=== PATIENT | male | born 1950 | race Caucasian/White ===

== ENCOUNTER 2022-04-04 15:35 | Inpatient (IN) | payer MEDICARE ==
[2022-04-05 03:52] LABS: Basophils # (Auto) 0.1 K/mm3 (0.0-0.1); Basophils % (Auto) 0.6 % (0.0-1.8); Eosinophils # (Auto) 0.3 K/mm3 (0.0-0.4); Eosinophils % (Auto) 3.1 % (0.0-4.3); Hematocrit 38.9 % (35.5-45.6); Hemoglobin 13.9 gm/dl (11.8-15.2); Lymphocytes # (Auto) 1.7 K/mm3 (1.2-5.4); Lymphocytes % (Auto) 20.2 % (13.4-35.0); Mean Corpuscular HGB Conc 36 % (32-34); Mean Corpuscular Volume 97 fl (84-94); Monocytes # (Auto) 1.1 K/mm3 (0.0-0.8); Monocytes % (Auto) 12.9 % (0.0-7.3); Platelet Count 267 K/mm3 (140-440); Red Blood Count 4.02 M/mm3 (3.65-5.03); Red Cell Distribution Width 13.1 % (13.2-15.2)
[2022-04-05 04:13] LABS: Albumin 3.9 g/dL (3.9-5); Calcium 9.8 mg/dL (8.4-10.2); Chol/HDL Ratio 2.51 %
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
[2022-04-05] MEDS ORDERED: FAMCICLOVIR 250 MG PO SCH (08:30)
[2022-04-05] MEDS ORDERED: OLMESARTAN MEDOXOMIL 20 MG PO SCH (10:00)
[2022-04-05] MEDS ORDERED: NON-FORMULARY EACH (Aspirin [Vazalore] 81 MG Capsule) PO SCH (10:00)
[2022-04-05] MEDS: CLOPIDOGREL 75 MG TAB PO SCH (10:27)
[2022-04-05] MEDS: LEVOTHYROXINE 50 MCG TAB PO SCH (10:27)
[2022-04-05] MEDS: LOSARTAN 50 MG TAB PO SCH (10:28)
[2022-04-05] MEDS: risperiDONE 0.25 MG TAB PO SCH ×2 (10:35→21:20)
[2022-04-05] MEDS: ASPIRIN EC 81 MG TAB PO SCH (10:35)
[2022-04-05] MEDS: IBUPROFEN 200 MG TAB PO SCH (21:20)
[2022-04-05] MEDS ORDERED: IBUPROFEN 200 MG PO SCH (22:00)
[2022-04-06] MEDS: LEVOTHYROXINE 50 MCG TAB PO SCH (06:06)
[2022-04-06] MEDS: ASPIRIN EC 81 MG TAB PO SCH ×2 (09:23→09:29)
[2022-04-06] MEDS: risperiDONE 0.25 MG TAB PO SCH ×2 (09:24→21:31)
[2022-04-06] MEDS: CLOPIDOGREL 75 MG TAB PO SCH (09:24)
[2022-04-06] MEDS: LOSARTAN 50 MG TAB PO SCH (09:24)
[2022-04-06] MEDS: DIVALPROEX DR 125 MG TAB PO SCH ×2 (14:15→21:31)
[2022-04-06] MEDS: IBUPROFEN 200 MG TAB PO SCH (21:31)
[2022-04-07] MEDS: LEVOTHYROXINE 50 MCG TAB PO SCH (06:12)
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
[2022-04-07] MEDS: CLOPIDOGREL 75 MG TAB PO SCH (09:18)
[2022-04-07] MEDS: LOSARTAN 50 MG TAB PO SCH (09:18)
[2022-04-07] MEDS: DIVALPROEX DR 125 MG TAB PO SCH ×2 (09:25→21:08)
[2022-04-07] MEDS: ASPIRIN EC 81 MG TAB PO SCH (09:27)
[2022-04-07] MEDS ORDERED: risperiDONE 1 MG TAB PO SCH (10:00)
[2022-04-07] MEDS: risperiDONE 0.25 MG TAB PO SCH ×2 (10:00→21:03)
--- NOTE | 2022-04-07 17:08 | Consultation ---
History of Present Illness - Reason for Consult Consult date: 04/07/22 Medical management Medications and Allergies Allergies Allergy/AdvReac Type Severity Reaction Status Date / Time Sulfa (Sulfonamide Allergy Vomiting Verified 04/05/22 01:32 Antibiotics) Home Medications Medication Instructions Recorded Confirmed Last Taken Type Aspirin [Vazalore] 81 mg PO DAILY 04/05/22 04/05/22 Unknown History AtorvaSTATin [Lipitor] 10 mg PO QHS 04/05/22 04/05/22 Unknown History Clopidogrel [Plavix] 75 mg PO QDAY 04/05/22 04/05/22 Unknown History Famciclovir [Famvir Tab] 500 mg PO Q12H 04/05/22 04/05/22 Unknown History Ibuprofen [Advil Migraine] 200 mg PO HS 04/05/22 04/05/22 Unknown History Levothyroxine [Synthroid] 50 mcg PO QAM 04/05/22 04/05/22 Unknown History Olmesartan Medoxomil [Benicar] 20 mg PO DAILY 04/05/22 04/05/22 Unknown History Active Meds: Active Medications Aspirin (Aspirin Ec 81 Mg Tab) 81 mg PO QDAY [facility] Last Admin: 04/07/22 09:27 Dose: Not Given Atorvastatin Calcium (Atorvastatin 10 Mg Tab) 10 mg PO QHS [facility] Last Admin: 04/06/22 21:31 Dose: 10 mg Clopidogrel Bisulfate (Clopidogrel 75 Mg Tab) 75 mg PO QDAY [facility] Last Admin: 04/07/22 09:18 Dose: 37.5 mg Divalproex Sodium (Divalproex Dr 125 Mg Tab) 125 mg PO BID [facility] Last Admin: 04/07/22 09:25 Dose: 125 mg Ibuprofen (Ibuprofen 200 Mg Tab) 200 mg PO QHS [facility] Last Admin: 04/06/22 21:31 Dose: 200 mg Levothyroxine Sodium (Levothyroxine 50 Mcg Tab) 50 mcg PO DAILY@0600 [facility] Last Admin: 04/07/22 06:12 Dose: 50 mcg Losartan Potassium (Losartan 50 Mg Tab) 50 mg PO QDAY [facility] Last Admin: 04/07/22 09:18 Dose: Not Given Miscellaneous Medication (Famciclovir) 500 mg PO Q12H [facility] Risperidone (Risperidone 0.25 Mg Tab) 0.5 mg PO TID [facility] Last Admin: 04/07/22 10:00 Dose: Not Given Exam - Constitutional Vitals: Temp Pulse Resp BP Pulse Ox 97.1 F L 51 L 16 121/56 100 04/07/22 07:30 04/07/22 09:18 04/07/22 07:30 04/07/22 09:18 04/07/22 07:30 Results - Labs CBC & Chem 7: 04/05/22 03:25 04/05/22 03:25 Assessment and Plan #Delusional disorder #Auditory hallucination Management per primary #Coronary artery disease Continue home aspirin 81 mg daily, atorvastatin 40 mg nightly, Plavix 75 mg daily #Hypertension - home medications: Olmesartan 20 mg daily - current medications: Losartan 50 mg daily - SBP goal <160 and DBP goal <90 while inpatient - continue to monitor #Hypothyroidism Continue home levothyroxine 50 mcg daily #Advanced care planning -Disease education conducted, care plan discussed, diagnoses discussed, prognosis discussed, and patient acknowledges understanding with care plan -Time: +30 min Thank you for this interesting consult. We will continue to monitor.
[2022-04-07] MEDS: IBUPROFEN 200 MG TAB PO SCH (21:05)
[2022-04-08] MEDS: LEVOTHYROXINE 50 MCG TAB PO SCH (05:58)
[2022-04-08] MEDS: risperiDONE 0.25 MG TAB PO SCH ×3 (08:00→21:38)
--- NOTE | 2022-04-08 09:03 | Progress Note ---
Subjective Date of service: 04/08/22 Principal diagnosis: Delusional Disorder Subjective Comment: The patient was seen today. He is sitting in the dayroom. He is delusional. He is calm and cooperative. He introduces himself as "Dr. Vásquez." He denies SI/HI or hallucinations. REVIEW OF SYSTEMS Constitutional: Negative for weight loss ENT: Negative for stridor Respiratory: Negative for cough or hemoptysis All other systems reviewed and are negative MENTAL STATUS EXAMINATION General Appearance and Behavior: Age appropriate, wearing appropriate clothes, cooperative, polite with questioning, good eye contact Cooperation: cooperative Psychomotor Behavior: Psychomotor normal Mood: frustrated Affect and affective range: congruent with stated affect Thought Process: Circumstantial Thought Content: Paranoid/delusions Speech: Normal volume, Regular rate and rhythm Suicidal Ideation: Denies Homicidal Ideation: Denies Hallucination: Denies Delusions: Yes Impulse Control: Limited Insight and Judgment: Limited Memory: Intact Attention:attentive Orientation: Alert and oriented Diagnoses: Delusional Disorder Treatment Plan Patient admitted for inpatient psychiatric evaluation, medication adjustment and close monitoring The patient's behavior, mood, sleep and appetite will be closely monitored. Patient enrolled in individual and group therapeutic sessions and encouraged to attend. Patient provided with a safe and structured environment. Patient's physical health needs will be addressed by the Hospitalist. Hospitalist Consulted Labs including CBC, CMP, Lipid profile and Hemoglobin A1C levels ordered for baseline reference Social Assessment will be completed and the Customer Retention Representative will work with patient and family to ensure a suitable and safe disposition Medication adjustment will be made as clinically indicated Increase Risperidone 0.5mg po TID yesterday No changes made today Usual Wellness Sabianist/Preservation: - Start Trazodone 50 mg po QHS & 50 mg po QHS PRN between 10 PM & 2 AM for insomnia - Start Melatonin 5 mg po QHS to promote circadian rhythm The patient agreed on the treatment plan, understood the risk, benefit, alternative treatment, potential consequence of no treatment, and gave informed consent. Estimated days: 7 Post hospital care: primary care provider, psychiatric provider Case staffed with Dr. Torres Medications and Allergies Allergies Allergy/AdvReac Type Severity Reaction Status Date / Time Sulfa (Sulfonamide Allergy Vomiting Verified 04/05/22 01:32 Antibiotics) Home Medications Medication Instructions Recorded Confirmed Last Taken Type Aspirin [Vazalore] 81 mg PO DAILY 04/05/22 04/05/22 Unknown History AtorvaSTATin [Lipitor] 10 mg PO QHS 04/05/22 04/05/22 Unknown History Clopidogrel [Plavix] 75 mg PO QDAY 04/05/22 04/05/22 Unknown History Famciclovir [Famvir Tab] 500 mg PO Q12H 04/05/22 04/05/22 Unknown History Ibuprofen [Advil Migraine] 200 mg PO HS 04/05/22 04/05/22 Unknown History Levothyroxine [Synthroid] 50 mcg PO QAM 04/05/22 04/05/22 Unknown History Olmesartan Medoxomil [Benicar] 20 mg PO DAILY 04/05/22 04/05/22 Unknown History Active Meds: Active Medications Aspirin (Aspirin Ec 81 Mg Tab) 81 mg PO QDAY [facility] Last Admin: 04/07/22 09:27 Dose: Not Given Atorvastatin Calcium (Atorvastatin 10 Mg Tab) 10 mg PO QHS [facility] Last Admin: 04/07/22 21:07 Dose: Not Given Clopidogrel Bisulfate (Clopidogrel 75 Mg Tab) 75 mg PO QDAY [facility] Last Admin: 04/07/22 09:18 Dose: 37.5 mg Divalproex Sodium (Divalproex Dr 125 Mg Tab) 125 mg PO BID [facility] Last Admin: 04/07/22 21:08 Dose: Not Given Ibuprofen (Ibuprofen 200 Mg Tab) 200 mg PO QHS [facility] Last Admin: 04/07/22 21:05 Dose: 200 mg Levothyroxine Sodium (Levothyroxine 50 Mcg Tab) 50 mcg PO DAILY@0600 [facility] Last Admin: 04/08/22 05:58 Dose: 50 mcg Losartan Potassium (Losartan 50 Mg Tab) 50 mg PO QDAY [facility] Last Admin: 04/07/22 09:18 Dose: Not Given Risperidone (Risperidone 0.25 Mg Tab) 0.5 mg PO TID [facility] Last Admin: 04/07/22 21:03 Dose: 0.5 mg Valacyclovir HCl (Valacyclovir 500 Mg Tab) 500 mg PO BID [facility] Results - Results Labs/Vitals: Laboratory Last Values WBC 8.5 K/mm3 (4.5-11.0) 04/05/22 03:25 RBC 4.02 M/mm3 (3.65-5.03) 04/05/22 03:25 Hgb 13.9 gm/dl (11.8-15.2) 04/05/22 03:25 Hct 38.9 % (35.5-45.6) 04/05/22 03:25 MCV 97 fl (84-94) H 04/05/22 03:25 MCH 35 pg (28-32) H 04/05/22 03:25 MCHC 36 % (32-34) H 04/05/22 03:25 RDW 13.1 % (13.2-15.2) L 04/05/22 03:25 Plt Count 267 K/mm3 (140-440) 04/05/22 03:25 Lymph % (Auto) 20.2 % (13.4-35.0) 04/05/22 03:25 [place] % (Auto) 12.9 % (0.0-7.3) H 04/05/22 03:25 Eos % (Auto) 3.1 % (0.0-4.3) 04/05/22 03:25 Baso % (Auto) 0.6 % (0.0-1.8) 04/05/22 03:25 Lymph # (Auto) 1.7 K/mm3 (1.2-5.4) 04/05/22 03:25 [place] # (Auto) 1.1 K/mm3 (0.0-0.8) H 04/05/22 03:25 Eos # (Auto) 0.3 K/mm3 (0.0-0.4) 04/05/22 03:25 Baso # (Auto) 0.1 K/mm3 (0.0-0.1) 04/05/22 03:25 Seg Neutrophils % 63.2 % (40.0-70.0) 04/05/22 03:25 Seg Neutrophils # 5.4 K/mm3 (1.8-7.7) 04/05/22 03:25 Sodium 136 mmol/L (137-145) L 04/05/22 03:25 Potassium 4.3 mmol/L (3.6-5.0) 04/05/22 03:25 Chloride 96.9 mmol/L (98-107) L 04/05/22 03:25 Carbon Dioxide 28 mmol/L (22-30) 04/05/22 03:25 Anion Gap 15 mmol/L 04/05/22 03:25 BUN 26 mg/dL (9-20) H 04/05/22 03:25 Creatinine 1.4 mg/dL (0.8-1.3) H 04/05/22 03:25 Estimated GFR 50 ml/min 04/05/22 03:25 BUN/Creatinine Ratio 19 % 04/05/22 03:25 Glucose 99 mg/dL (75-100) 04/05/22 03:25 POC Glucose 98 mg/dL (70-105) 04/05/22 03:54 Hemoglobin A1c 5.2 % (4-6) 04/05/22 03:25 Calcium 9.8 mg/dL (8.4-10.2) 04/05/22 03:25 Total Bilirubin 0.30 mg/dL (0.1-1.2) 04/05/22 03:25 AST 28 units/L (5-40) 04/05/22 03:25 ALT 25 units/L (7-56) 04/05/22 03:25 Alkaline Phosphatase 52 units/L (35-129) 04/05/22 03:25 Total Protein 6.7 g/dL (6.3-8.2) 04/05/22 03:25 Albumin 3.9 g/dL (3.9-5) 04/05/22 03:25 Albumin/Globulin Ratio 1.4 % 04/05/22 03:25 Triglycerides 62 mg/dL (2-149) 04/05/22 03:25 Cholesterol 98 mg/dL (50-199) 04/05/22 03:25 LDL Cholesterol Direct 49 mg/dL (50-130) L 04/05/22 03:25 HDL Cholesterol 39 mg/dL (40-59) L 04/05/22 03:25 Cholesterol/HDL Ratio 2.51 % 04/05/22 03:25 TSH 2.600 mlU/mL (0.270-4.200) 04/05/22 03:25 Last Vital Signs Temp 97.7 F 04/07/22 19:04 Pulse 58 L 04/07/22 21:54 Resp 16 04/07/22 19:04 BP 101/47 04/07/22 19:04 Pulse Ox 98 04/07/22 21:54
[2022-04-08] MEDS: valACYclovir 500 MG TAB PO SCH ×2 (10:00→21:37)
[2022-04-08] MEDS: LOSARTAN 50 MG TAB PO SCH (10:00)
[2022-04-08] MEDS: CLOPIDOGREL 75 MG TAB PO SCH (10:00)
[2022-04-08] MEDS: ASPIRIN EC 81 MG TAB PO SCH (10:00)
[2022-04-08] MEDS: DIVALPROEX DR 125 MG TAB PO SCH ×2 (10:00→21:39)
[2022-04-08] MEDS ORDERED: ACETAMINOPHEN 325 MG TAB PO PRN (21:13)
[2022-04-08] MEDS: IBUPROFEN 200 MG TAB PO SCH (21:38)
[2022-04-09] MEDS: LEVOTHYROXINE 50 MCG TAB PO SCH (06:07)
--- NOTE | 2022-04-09 09:34 | Progress Note ---
Subjective Date of service: 04/09/22 Principal diagnosis: Delusional Disorder Subjective Comment: The patient was seen today. He says he is feeling fine. He refers to himself as "Dr. Vásquez." The patient denies SI/HI or hallucinations. He says he has not had a bowel movement in 4 days. 04/08 The patient was seen today. He is sitting in the dayroom. He is delusional. He is calm and cooperative. He introduces himself as "Dr. Vásquez." He denies SI/HI or hallucinations. REVIEW OF SYSTEMS Constitutional: Negative for weight loss ENT: Negative for stridor Respiratory: Negative for cough or hemoptysis All other systems reviewed and are negative MENTAL STATUS EXAMINATION General Appearance and Behavior: Age appropriate, wearing appropriate clothes, cooperative, polite with questioning, good eye contact Cooperation: cooperative Psychomotor Behavior: Psychomotor normal Mood: frustrated Affect and affective range: congruent with stated affect Thought Process: Circumstantial Thought Content: Paranoid/delusions Speech: Normal volume, Regular rate and rhythm Suicidal Ideation: Denies Homicidal Ideation: Denies Hallucination: Denies Delusions: Yes Impulse Control: Limited Insight and Judgment: Limited Memory: Intact Attention:attentive Orientation: Alert and oriented Diagnoses: Delusional Disorder Treatment Plan Patient admitted for inpatient psychiatric evaluation, medication adjustment and close monitoring The patient's behavior, mood, sleep and appetite will be closely monitored. Patient enrolled in individual and group therapeutic sessions and encouraged to attend. Patient provided with a safe and structured environment. Patient's physical health needs will be addressed by the Hospitalist. Hospitalist Consulted Labs including CBC, CMP, Lipid profile and Hemoglobin A1C levels ordered for baseline reference Social Assessment will be completed and the Drywall Sander will work with patient and family to ensure a suitable and safe disposition Medication adjustment will be made as clinically indicated Docusate 100mg po BID prn constipation MOM 30ml q4h prn constipation Usual Wellness Baptism/Preservation: - Start Trazodone 50 mg po QHS & 50 mg po QHS PRN between 10 PM & 2 AM for insomnia - Start Melatonin 5 mg po QHS to promote circadian rhythm The patient agreed on the treatment plan, understood the risk, benefit, alternative treatment, potential consequence of no treatment, and gave informed consent. Estimated days: 7 Post hospital care: primary care provider, psychiatric provider Case staffed with Dr. Torres Medications and Allergies Allergies Allergy/AdvReac Type Severity Reaction Status Date / Time Sulfa (Sulfonamide Allergy Vomiting Verified 04/05/22 01:32 Antibiotics) Home Medications Medication Instructions Recorded Confirmed Last Taken Type Aspirin [Vazalore] 81 mg PO DAILY 04/05/22 04/05/22 Unknown History AtorvaSTATin [Lipitor] 10 mg PO QHS 04/05/22 04/05/22 Unknown History Clopidogrel [Plavix] 75 mg PO QDAY 04/05/22 04/05/22 Unknown History Famciclovir [Famvir Tab] 500 mg PO Q12H 04/05/22 04/05/22 Unknown History Ibuprofen [Advil Migraine] 200 mg PO HS 04/05/22 04/05/22 Unknown History Levothyroxine [Synthroid] 50 mcg PO QAM 04/05/22 04/05/22 Unknown History Olmesartan Medoxomil [Benicar] 20 mg PO DAILY 04/05/22 04/05/22 Unknown History Active Meds: Active Medications Acetaminophen (Acetaminophen 325 Mg Tab) 650 mg PO Q6H PRN PRN Reason: Pain, Mild (1-3) Aspirin (Aspirin Ec 81 Mg Tab) 81 mg PO QDAY [facility] Last Admin: 04/08/22 10:00 Dose: 81 mg Atorvastatin Calcium (Atorvastatin 10 Mg Tab) 10 mg PO QHS [facility] Last Admin: 04/08/22 21:38 Dose: 10 mg Clopidogrel Bisulfate (Clopidogrel 75 Mg Tab) 75 mg PO QDAY [facility] Last Admin: 04/08/22 10:00 Dose: 75 mg Divalproex Sodium (Divalproex Dr 125 Mg Tab) 125 mg PO BID [facility] Last Admin: 04/08/22 21:39 Dose: Not Given Ibuprofen (Ibuprofen 200 Mg Tab) 200 mg PO QHS [facility] Last Admin: 04/08/22 21:38 Dose: 200 mg Levothyroxine Sodium (Levothyroxine 50 Mcg Tab) 50 mcg PO DAILY@0600 [facility] Last Admin: 04/09/22 06:07 Dose: 50 mcg Losartan Potassium (Losartan 50 Mg Tab) 50 mg PO QDAY [facility] Last Admin: 04/08/22 10:00 Dose: Not Given Risperidone (Risperidone 0.25 Mg Tab) 0.5 mg PO TID [facility] Last Admin: 04/08/22 21:38 Dose: Not Given Valacyclovir HCl (Valacyclovir 500 Mg Tab) 500 mg PO BID [facility] Last Admin: 04/08/22 21:37 Dose: 500 mg Results - Results Labs/Vitals: Laboratory Last Values WBC 8.5 K/mm3 (4.5-11.0) 04/05/22 03:25 RBC 4.02 M/mm3 (3.65-5.03) 04/05/22 03:25 Hgb 13.9 gm/dl (11.8-15.2) 04/05/22 03:25 Hct 38.9 % (35.5-45.6) 04/05/22 03:25 MCV 97 fl (84-94) H 04/05/22 03:25 MCH 35 pg (28-32) H 04/05/22 03:25 MCHC 36 % (32-34) H 04/05/22 03:25 RDW 13.1 % (13.2-15.2) L 04/05/22 03:25 Plt Count 267 K/mm3 (140-440) 04/05/22 03:25 Lymph % (Auto) 20.2 % (13.4-35.0) 04/05/22 03:25 [place] % (Auto) 12.9 % (0.0-7.3) H 04/05/22 03:25 Eos % (Auto) 3.1 % (0.0-4.3) 04/05/22 03:25 Baso % (Auto) 0.6 % (0.0-1.8) 04/05/22 03:25 Lymph # (Auto) 1.7 K/mm3 (1.2-5.4) 04/05/22 03:25 [place] # (Auto) 1.1 K/mm3 (0.0-0.8) H 04/05/22 03:25 Eos # (Auto) 0.3 K/mm3 (0.0-0.4) 04/05/22 03:25 Baso # (Auto) 0.1 K/mm3 (0.0-0.1) 04/05/22 03:25 Seg Neutrophils % 63.2 % (40.0-70.0) 04/05/22 03:25 Seg Neutrophils # 5.4 K/mm3 (1.8-7.7) 04/05/22 03:25 Sodium 136 mmol/L (137-145) L 04/05/22 03:25 Potassium 4.3 mmol/L (3.6-5.0) 04/05/22 03:25 Chloride 96.9 mmol/L (98-107) L 04/05/22 03:25 Carbon Dioxide 28 mmol/L (22-30) 04/05/22 03:25 Anion Gap 15 mmol/L 04/05/22 03:25 BUN 26 mg/dL (9-20) H 04/05/22 03:25 Creatinine 1.4 mg/dL (0.8-1.3) H 04/05/22 03:25 Estimated GFR 50 ml/min 04/05/22 03:25 BUN/Creatinine Ratio 19 % 04/05/22 03:25 Glucose 99 mg/dL (75-100) 04/05/22 03:25 POC Glucose 98 mg/dL (70-105) 04/05/22 03:54 Hemoglobin A1c 5.2 % (4-6) 04/05/22 03:25 Calcium 9.8 mg/dL (8.4-10.2) 04/05/22 03:25 Total Bilirubin 0.30 mg/dL (0.1-1.2) 04/05/22 03:25 AST 28 units/L (5-40) 04/05/22 03:25 ALT 25 units/L (7-56) 04/05/22 03:25 Alkaline Phosphatase 52 units/L (35-129) 04/05/22 03:25 Total Protein 6.7 g/dL (6.3-8.2) 04/05/22 03:25 Albumin 3.9 g/dL (3.9-5) 04/05/22 03:25 Albumin/Globulin Ratio 1.4 % 04/05/22 03:25 Triglycerides 62 mg/dL (2-149) 04/05/22 03:25 Cholesterol 98 mg/dL (50-199) 04/05/22 03:25 LDL Cholesterol Direct 49 mg/dL (50-130) L 04/05/22 03:25 HDL Cholesterol 39 mg/dL (40-59) L 04/05/22 03:25 Cholesterol/HDL Ratio 2.51 % 04/05/22 03:25 TSH 2.600 mlU/mL (0.270-4.200) 04/05/22 03:25 Last Vital Signs Temp 97.5 F L 04/08/22 22:00 Pulse 55 L 04/08/22 22:00 Resp 18 04/08/22 22:00 BP 123/58 04/08/22 22:00 Pulse Ox 100 04/08/22 19:56
[2022-04-09] MEDS ORDERED: MAGNESIUM HYDROXIDE (MOM) ORAL LIQD UDC PO PRN (09:35)
[2022-04-09] MEDS: DIVALPROEX DR 125 MG TAB PO SCH ×2 (15:49→22:31)
[2022-04-09] MEDS: risperiDONE 0.25 MG TAB PO SCH ×2 (15:49→22:31)
[2022-04-09] MEDS: DOCUSATE SODIUM 100 MG CAP PO SCH ×2 (15:49→21:29)
[2022-04-09] MEDS: LOSARTAN 50 MG TAB PO SCH (15:49)
[2022-04-09] MEDS: valACYclovir 500 MG TAB PO SCH ×2 (15:50→21:30)
[2022-04-09] MEDS: ASPIRIN EC 81 MG TAB PO SCH (15:50)
[2022-04-09] MEDS: CLOPIDOGREL 75 MG TAB PO SCH (15:50)
[2022-04-09] MEDS: IBUPROFEN 200 MG TAB PO SCH (21:29)
[2022-04-10] MEDS: LEVOTHYROXINE 50 MCG TAB PO SCH (05:23)
--- NOTE | 2022-04-10 09:18 | Progress Note ---
Subjective Date of service: 04/10/22 Principal diagnosis: Delusional Disorder Subjective Comment: The patient was seen today. He says he is doing fair. He refers to himself as Dr. Vásquez. He denies SI/HI or hallucinations of any kind. 04/09 The patient was seen today. He says he is feeling fine. He refers to himself as "Dr. Vásquez." The patient denies SI/HI or hallucinations. He says he has not had a bowel movement in 4 days. 04/08 The patient was seen today. He is sitting in the dayroom. He is delusional. He is calm and cooperative. He introduces himself as "Dr. Vásquez." He denies SI/HI or hallucinations. REVIEW OF SYSTEMS Constitutional: Negative for weight loss ENT: Negative for stridor Respiratory: Negative for cough or hemoptysis All other systems reviewed and are negative MENTAL STATUS EXAMINATION General Appearance and Behavior: Age appropriate, wearing appropriate clothes, cooperative, polite with questioning, good eye contact Cooperation: cooperative Psychomotor Behavior: Psychomotor normal Mood: fair Affect and affective range: congruent with stated affect Thought Process: Circumstantial Thought Content: Paranoid/delusions Speech: Normal volume, Regular rate and rhythm Suicidal Ideation: Denies Homicidal Ideation: Denies Hallucination: Denies Delusions: Yes Impulse Control: Limited Insight and Judgment: Limited Memory: Intact Attention:attentive Orientation: Alert and oriented Diagnoses: Delusional Disorder Treatment Plan Patient admitted for inpatient psychiatric evaluation, medication adjustment and close monitoring The patient's behavior, mood, sleep and appetite will be closely monitored. Patient enrolled in individual and group therapeutic sessions and encouraged to attend. Patient provided with a safe and structured environment. Patient's physical health needs will be addressed by the Hospitalist. Hospitalist Consulted Labs including CBC, CMP, Lipid profile and Hemoglobin A1C levels ordered for baseline reference Social Assessment will be completed and the Restaurant Crew Member will work with patient and family to ensure a suitable and safe disposition Medication adjustment will be made as clinically indicated No changes made today Usual Wellness Orthodox/Preservation: - Start Trazodone 50 mg po QHS & 50 mg po QHS PRN between 10 PM & 2 AM for insomnia - Start Melatonin 5 mg po QHS to promote circadian rhythm The patient agreed on the treatment plan, understood the risk, benefit, alternative treatment, potential consequence of no treatment, and gave informed consent. Estimated days: 7 Post hospital care: primary care provider, psychiatric provider Case staffed with Dr. Torres Medications and Allergies Allergies Allergy/AdvReac Type Severity Reaction Status Date / Time Sulfa (Sulfonamide Allergy Vomiting Verified 04/05/22 01:32 Antibiotics) Home Medications Medication Instructions Recorded Confirmed Last Taken Type Aspirin [Vazalore] 81 mg PO DAILY 04/05/22 04/05/22 Unknown History AtorvaSTATin [Lipitor] 10 mg PO QHS 04/05/22 04/05/22 Unknown History Clopidogrel [Plavix] 75 mg PO QDAY 04/05/22 04/05/22 Unknown History Famciclovir [Famvir Tab] 500 mg PO Q12H 04/05/22 04/05/22 Unknown History Ibuprofen [Advil Migraine] 200 mg PO HS 04/05/22 04/05/22 Unknown History Levothyroxine [Synthroid] 50 mcg PO QAM 04/05/22 04/05/22 Unknown History Olmesartan Medoxomil [Benicar] 20 mg PO DAILY 04/05/22 04/05/22 Unknown History Active Meds: Active Medications Acetaminophen (Acetaminophen 325 Mg Tab) 650 mg PO Q6H PRN PRN Reason: Pain, Mild (1-3) Aspirin (Aspirin Ec 81 Mg Tab) 81 mg PO QDAY [facility] Last Admin: 04/09/22 15:50 Dose: Not Given Atorvastatin Calcium (Atorvastatin 10 Mg Tab) 10 mg PO QHS [facility] Last Admin: 04/09/22 21:29 Dose: 10 mg Clopidogrel Bisulfate (Clopidogrel 75 Mg Tab) 75 mg PO QDAY [facility] Last Admin: 04/09/22 15:50 Dose: Not Given Divalproex Sodium (Divalproex Dr 125 Mg Tab) 125 mg PO BID [facility] Last Admin: 04/09/22 22:31 Dose: Not Given Docusate Sodium (Docusate Sodium 100 Mg Cap) 100 mg PO BID [facility] Last Admin: 04/09/22 21:29 Dose: 100 mg Ibuprofen (Ibuprofen 200 Mg Tab) 200 mg PO QHS [facility] Last Admin: 04/09/22 21:29 Dose: 200 mg Levothyroxine Sodium (Levothyroxine 50 Mcg Tab) 50 mcg PO DAILY@0600 [facility] Last Admin: 04/10/22 05:23 Dose: 50 mcg Losartan Potassium (Losartan 50 Mg Tab) 50 mg PO QDAY [facility] Last Admin: 04/09/22 15:49 Dose: Not Given Magnesium Hydroxide (Magnesium Hydroxide (Mom) Oral Liqd Udc) 30 ml PO Q4H PRN PRN Reason: Constipation Risperidone (Risperidone 0.25 Mg Tab) 0.5 mg PO TID [facility] Last Admin: 04/09/22 22:31 Dose: Not Given Valacyclovir HCl (Valacyclovir 500 Mg Tab) 500 mg PO BID [facility] Last Admin: 04/09/22 21:30 Dose: 500 mg Results - Results Labs/Vitals: Laboratory Last Values WBC 8.5 K/mm3 (4.5-11.0) 04/05/22 03:25 RBC 4.02 M/mm3 (3.65-5.03) 04/05/22 03:25 Hgb 13.9 gm/dl (11.8-15.2) 04/05/22 03:25 Hct 38.9 % (35.5-45.6) 04/05/22 03:25 MCV 97 fl (84-94) H 04/05/22 03:25 MCH 35 pg (28-32) H 04/05/22 03:25 MCHC 36 % (32-34) H 04/05/22 03:25 RDW 13.1 % (13.2-15.2) L 04/05/22 03:25 Plt Count 267 K/mm3 (140-440) 04/05/22 03:25 Lymph % (Auto) 20.2 % (13.4-35.0) 04/05/22 03:25 [place] % (Auto) 12.9 % (0.0-7.3) H 04/05/22 03:25 Eos % (Auto) 3.1 % (0.0-4.3) 04/05/22 03:25 Baso % (Auto) 0.6 % (0.0-1.8) 04/05/22 03:25 Lymph # (Auto) 1.7 K/mm3 (1.2-5.4) 04/05/22 03:25 [place] # (Auto) 1.1 K/mm3 (0.0-0.8) H 04/05/22 03:25 Eos # (Auto) 0.3 K/mm3 (0.0-0.4) 04/05/22 03:25 Baso # (Auto) 0.1 K/mm3 (0.0-0.1) 04/05/22 03:25 Seg Neutrophils % 63.2 % (40.0-70.0) 04/05/22 03:25 Seg Neutrophils # 5.4 K/mm3 (1.8-7.7) 04/05/22 03:25 Sodium 136 mmol/L (137-145) L 04/05/22 03:25 Potassium 4.3 mmol/L (3.6-5.0) 04/05/22 03:25 Chloride 96.9 mmol/L (98-107) L 04/05/22 03:25 Carbon Dioxide 28 mmol/L (22-30) 04/05/22 03:25 Anion Gap 15 mmol/L 04/05/22 03:25 BUN 26 mg/dL (9-20) H 04/05/22 03:25 Creatinine 1.4 mg/dL (0.8-1.3) H 04/05/22 03:25 Estimated GFR 50 ml/min 04/05/22 03:25 BUN/Creatinine Ratio 19 % 04/05/22 03:25 Glucose 99 mg/dL (75-100) 04/05/22 03:25 POC Glucose 98 mg/dL (70-105) 04/05/22 03:54 Hemoglobin A1c 5.2 % (4-6) 04/05/22 03:25 Calcium 9.8 mg/dL (8.4-10.2) 04/05/22 03:25 Total Bilirubin 0.30 mg/dL (0.1-1.2) 04/05/22 03:25 AST 28 units/L (5-40) 04/05/22 03:25 ALT 25 units/L (7-56) 04/05/22 03:25 Alkaline Phosphatase 52 units/L (35-129) 04/05/22 03:25 Total Protein 6.7 g/dL (6.3-8.2) 04/05/22 03:25 Albumin 3.9 g/dL (3.9-5) 04/05/22 03:25 Albumin/Globulin Ratio 1.4 % 04/05/22 03:25 Triglycerides 62 mg/dL (2-149) 04/05/22 03:25 Cholesterol 98 mg/dL (50-199) 04/05/22 03:25 LDL Cholesterol Direct 49 mg/dL (50-130) L 04/05/22 03:25 HDL Cholesterol 39 mg/dL (40-59) L 04/05/22 03:25 Cholesterol/HDL Ratio 2.51 % 04/05/22 03:25 TSH 2.600 mlU/mL (0.270-4.200) 04/05/22 03:25 Last Vital Signs Temp 98.2 F 04/09/22 22:00 Pulse 52 L 04/09/22 22:00 Resp 18 04/09/22 22:00 BP 130/47 04/09/22 22:00 Pulse Ox 100 04/09/22 22:00
[2022-04-10] MEDS: CLOPIDOGREL 75 MG TAB PO SCH (10:08)
[2022-04-10] MEDS: risperiDONE 0.25 MG TAB PO SCH ×3 (10:08→22:48)
[2022-04-10] MEDS: DOCUSATE SODIUM 100 MG CAP PO SCH ×2 (10:09→22:48)
[2022-04-10] MEDS: LOSARTAN 50 MG TAB PO SCH (10:10)
[2022-04-10] MEDS: valACYclovir 500 MG TAB PO SCH (10:11)
[2022-04-10] MEDS: ASPIRIN EC 81 MG TAB PO SCH (10:11)
[2022-04-10] MEDS: DIVALPROEX DR 125 MG TAB PO SCH ×2 (10:11→22:49)
--- NOTE | 2022-04-10 10:46 | Progress Note ---
Assessment and Plan - Patient Problems (1) Delusional disorder Current Visit: Yes Status: Acute Plan to address problem: Continue medical management, supportive care, behavior change counseling (2) Vascular dementia with behavioral disturbance Current Visit: Yes Status: Acute Plan to address problem: Verbal prompting, verbal redirection, benzodiazepine therapy as clinically indicated. (3) Cerebral atherosclerosis Current Visit: Yes Status: Acute Plan to address problem: Risk factor reduction, antiplatelet therapy as clinically indicated. (4) Hypothyroidism Current Visit: Yes Status: Acute Plan to address problem: Continue Synthroid therapy, supportive care. (5) Hypertension Current Visit: Yes Status: Acute Qualifiers: Hypertension type: primary hypertension Qualified Code(s): I10 - Essential (primary) hypertension Plan to address problem: Monitor blood pressure every shift, continue medical management. (6) Advance care planning Current Visit: Yes Status: Acute Plan to address problem: Disease education done, care plan discussed, diagnoses discussed, prognosis discussed, patient is full code. Patient acknowledges understanding and agreement with care plan, +30 minutes. (7) Preventative health care Current Visit: Yes Status: Acute Plan to address problem: Patient counseled regarding home safety, increase protein intake, outpatient follow-up with primary care physician for all age and risk factor appropriate screening tests. +30 minutes. History Interval history: 71 YO Male with Vascular Dementia with Behavioral Disturbance, Cerebral Atherosclerosis, HTN, CAD on DAPT, Hypothyroidism, Delusional Disorder admitted to [facility] psych unit for psychiatric stabilization. Consult placed by Dr. Jorge for medical management. Patient seen and evaluated in the recreation room. Patient resting calmly. Patient appears to be at baseline level of cognition and function. Hospitalist Physical - Constitutional Vitals: Temp Pulse Resp BP Pulse Ox 98.2 F 52 L 18 139/66 100 04/09/22 22:00 04/10/22 10:10 04/09/22 22:00 04/10/22 10:10 04/09/22 22:00 General appearance: Present: no acute distress - EENT Eyes: Present: PERRL ENT: hearing decreased - Neck Neck: Present: supple - Respiratory Respiratory effort: normal Respiratory: bilateral: diminished - Cardiovascular Rhythm: regular Heart Sounds: Present: S1 & S2 - Extremities Extremities: no ischemia Peripheral Pulses: within normal limits - Abdominal General gastrointestinal: soft, non-tender, non-distended - Integumentary Integumentary: Present: clear, dry - Psychiatric Psychiatric: cooperative - Neurologic Neurologic: CNII-XII intact Results - Labs CBC & Chem 7: 04/05/22 03:25 04/05/22 03:25 Labs: Laboratory Last Values WBC 8.5 K/mm3 (4.5-11.0) 04/05/22 03:25 RBC 4.02 M/mm3 (3.65-5.03) 04/05/22 03:25 Hgb 13.9 gm/dl (11.8-15.2) 04/05/22 03:25 Hct 38.9 % (35.5-45.6) 04/05/22 03:25 MCV 97 fl (84-94) H 04/05/22 03:25 MCH 35 pg (28-32) H 04/05/22 03:25 MCHC 36 % (32-34) H 04/05/22 03:25 RDW 13.1 % (13.2-15.2) L 04/05/22 03:25 Plt Count 267 K/mm3 (140-440) 04/05/22 03:25 Lymph % (Auto) 20.2 % (13.4-35.0) 04/05/22 03:25 [place] % (Auto) 12.9 % (0.0-7.3) H 04/05/22 03:25 Eos % (Auto) 3.1 % (0.0-4.3) 04/05/22 03:25 Baso % (Auto) 0.6 % (0.0-1.8) 04/05/22 03:25 Lymph # (Auto) 1.7 K/mm3 (1.2-5.4) 04/05/22 03:25 [place] # (Auto) 1.1 K/mm3 (0.0-0.8) H 04/05/22 03:25 Eos # (Auto) 0.3 K/mm3 (0.0-0.4) 04/05/22 03:25 Baso # (Auto) 0.1 K/mm3 (0.0-0.1) 04/05/22 03:25 Seg Neutrophils % 63.2 % (40.0-70.0) 04/05/22 03:25 Seg Neutrophils # 5.4 K/mm3 (1.8-7.7) 04/05/22 03:25 Sodium 136 mmol/L (137-145) L 04/05/22 03:25 Potassium 4.3 mmol/L (3.6-5.0) 04/05/22 03:25 Chloride 96.9 mmol/L (98-107) L 04/05/22 03:25 Carbon Dioxide 28 mmol/L (22-30) 04/05/22 03:25 Anion Gap 15 mmol/L 04/05/22 03:25 BUN 26 mg/dL (9-20) H 04/05/22 03:25 Creatinine 1.4 mg/dL (0.8-1.3) H 04/05/22 03:25 Estimated GFR 50 ml/min 04/05/22 03:25 BUN/Creatinine Ratio 19 % 04/05/22 03:25 Glucose 99 mg/dL (75-100) 04/05/22 03:25 POC Glucose 98 mg/dL (70-105) 04/05/22 03:54 Hemoglobin A1c 5.2 % (4-6) 04/05/22 03:25 Calcium 9.8 mg/dL (8.4-10.2) 04/05/22 03:25 Total Bilirubin 0.30 mg/dL (0.1-1.2) 04/05/22 03:25 AST 28 units/L (5-40) 04/05/22 03:25 ALT 25 units/L (7-56) 04/05/22 03:25 Alkaline Phosphatase 52 units/L (35-129) 04/05/22 03:25 Total Protein 6.7 g/dL (6.3-8.2) 04/05/22 03:25 Albumin 3.9 g/dL (3.9-5) 04/05/22 03:25 Albumin/Globulin Ratio 1.4 % 04/05/22 03:25 Triglycerides 62 mg/dL (2-149) 04/05/22 03:25 Cholesterol 98 mg/dL (50-199) 04/05/22 03:25 LDL Cholesterol Direct 49 mg/dL (50-130) L 04/05/22 03:25 HDL Cholesterol 39 mg/dL (40-59) L 04/05/22 03:25 Cholesterol/HDL Ratio 2.51 % 04/05/22 03:25 TSH 2.600 mlU/mL (0.270-4.200) 04/05/22 03:25 Ascencio/IV: Voiding Method Toilet Active Medications - Current Medications Current Medications: Generic Name Dose Route Start Last Admin Trade Name Freq PRN Reason Stop Dose Admin Acetaminophen 650 mg 04/08/22 21:13 Acetaminophen 325 Mg Tab PO Q6H PRN Pain, Mild (1-3) Aspirin 81 mg 04/05/22 10:00 04/10/22 10:11 Aspirin Ec 81 Mg Tab PO Not Given QDAY [facility] Atorvastatin Calcium 10 mg 04/05/22 22:00 04/09/22 21:29 Atorvastatin 10 Mg Tab PO 10 mg QHS [facility] Administration Clopidogrel Bisulfate 75 mg 04/05/22 10:00 04/10/22 10:08 Clopidogrel 75 Mg Tab PO 75 mg QDAY [facility] Administration Divalproex Sodium 125 mg 04/06/22 12:00 04/10/22 10:[address] 125 Mg Tab PO Not Given BID [facility] Docusate Sodium 100 mg 04/09/22 10:00 04/10/22 10:09 Docusate Sodium 100 Mg Cap PO 100 mg BID [facility] Administration Ibuprofen 200 mg 04/05/22 22:00 04/09/22 21:29 Ibuprofen 200 Mg Tab PO 200 mg QHS [facility] Administration Levothyroxine Sodium 50 mcg 04/05/22 10:00 04/10/22 05:23 Levothyroxine 50 Mcg Tab PO 50 mcg DAILY@0600 [facility] Administration Losartan Potassium 50 mg 04/05/22 10:00 04/10/22 10:10 Losartan 50 Mg Tab PO 50 mg QDAY [facility] Administration Magnesium Hydroxide 30 ml 04/09/22 09:35 Magnesium Hydroxide (Mom) Oral Liqd Udc PO Q4H PRN Constipation Risperidone 0.5 mg 04/07/22 10:00 04/10/22 10:08 Risperidone 0.25 Mg Tab PO Not Given TID [facility]IE Valacyclovir HCl 500 mg 04/08/22 10:00 04/10/22 10:11 Valacyclovir 500 Mg Tab PO Not Given BID [facility]
[2022-04-10] MEDS: IBUPROFEN 200 MG TAB PO SCH (22:49)
[2022-04-11] MEDS: valACYclovir 500 MG TAB PO SCH ×3 (06:22→21:11)
[2022-04-11] MEDS: LEVOTHYROXINE 50 MCG TAB PO SCH (06:24)
[2022-04-11] MEDS: CLOPIDOGREL 75 MG TAB PO SCH (09:52)
[2022-04-11] MEDS: DOCUSATE SODIUM 100 MG CAP PO SCH ×2 (09:52→21:09)
[2022-04-11] MEDS: risperiDONE 0.25 MG TAB PO SCH ×3 (09:54→21:14)
[2022-04-11] MEDS: LOSARTAN 50 MG TAB PO SCH (09:54)
[2022-04-11] MEDS: DIVALPROEX DR 125 MG TAB PO SCH ×2 (09:55→21:11)
[2022-04-11] MEDS: ASPIRIN EC 81 MG TAB PO SCH (09:55)
--- NOTE | 2022-04-11 10:13 | Progress Note ---
Subjective Date of service: 04/11/22 Principal diagnosis: Delusional Disorder Subjective Comment: The patient was seen today. He says he is doing fine. The patient asked to speak to the about an assisted living. I informed him that I would inform the SW of his request. The patient denies SI/HI or hallucinations. The patient will discharge once outpatient resources are in place to ensure continuity of his mental wellness. 04/10 The patient was seen today. He says he is doing fair. He refers to himself as Dr. Vásquez. He denies SI/HI or hallucinations of any kind. 04/09 The patient was seen today. He says he is feeling fine. He refers to himself as "Dr. Vásquez." The patient denies SI/HI or hallucinations. He says he has not had a bowel movement in 4 days. 04/08 The patient was seen today. He is sitting in the dayroom. He is delusional. He is calm and cooperative. He introduces himself as "Dr. Vásquez." He denies SI/HI or hallucinations. REVIEW OF SYSTEMS Constitutional: Negative for weight loss ENT: Negative for stridor Respiratory: Negative for cough or hemoptysis All other systems reviewed and are negative MENTAL STATUS EXAMINATION General Appearance and Behavior: Age appropriate, wearing appropriate clothes, cooperative, polite with questioning, good eye contact Cooperation: cooperative Psychomotor Behavior: Psychomotor normal Mood: fair Affect and affective range: congruent with stated affect Thought Process: Circumstantial Thought Content: Paranoid/delusions Speech: Normal volume, Regular rate and rhythm Suicidal Ideation: Denies Homicidal Ideation: Denies Hallucination: Denies Delusions: Yes Impulse Control: Limited Insight and Judgment: Limited Memory: Intact Attention:attentive Orientation: Alert and oriented Diagnoses: Delusional Disorder Treatment Plan Patient admitted for inpatient psychiatric evaluation, medication adjustment and close monitoring The patient's behavior, mood, sleep and appetite will be closely monitored. Patient enrolled in individual and group therapeutic sessions and encouraged to attend. Patient provided with a safe and structured environment. Patient's physical health needs will be addressed by the Hospitalist. Hospitalist Consulted Labs including CBC, CMP, Lipid profile and Hemoglobin A1C levels ordered for baseline reference Social Assessment will be completed and the Software Architect will work with patient and family to ensure a suitable and safe disposition Medication adjustment will be made as clinically indicated No changes made today Usual Wellness Buddhism/Preservation: - Start Trazodone 50 mg po QHS & 50 mg po QHS PRN between 10 PM & 2 AM for insomnia - Start Melatonin 5 mg po QHS to promote circadian rhythm The patient agreed on the treatment plan, understood the risk, benefit, alternative treatment, potential consequence of no treatment, and gave informed consent. Estimated days: 7 Post hospital care: primary care provider, psychiatric provider Case staffed with Dr. Torres Medications and Allergies Allergies Allergy/AdvReac Type Severity Reaction Status Date / Time Sulfa (Sulfonamide Allergy Vomiting Verified 04/05/22 01:32 Antibiotics) Home Medications Medication Instructions Recorded Confirmed Last Taken Type Aspirin [Vazalore] 81 mg PO DAILY 04/05/22 04/05/22 Unknown History AtorvaSTATin [Lipitor] 10 mg PO QHS 04/05/22 04/05/22 Unknown History Clopidogrel [Plavix] 75 mg PO QDAY 04/05/22 04/05/22 Unknown History Famciclovir [Famvir Tab] 500 mg PO Q12H 04/05/22 04/05/22 Unknown History Ibuprofen [Advil Migraine] 200 mg PO HS 04/05/22 04/05/22 Unknown History Levothyroxine [Synthroid] 50 mcg PO QAM 04/05/22 04/05/22 Unknown History Olmesartan Medoxomil [Benicar] 20 mg PO DAILY 04/05/22 04/05/22 Unknown History Active Meds: Active Medications Acetaminophen (Acetaminophen 325 Mg Tab) 650 mg PO Q6H PRN PRN Reason: Pain, Mild (1-3) Aspirin (Aspirin Ec 81 Mg Tab) 81 mg PO QDAY [facility] Last Admin: 04/11/22 09:55 Dose: Not Given Atorvastatin Calcium (Atorvastatin 10 Mg Tab) 10 mg PO QHS [facility] Last Admin: 04/10/22 22:48 Dose: 10 mg Clopidogrel Bisulfate (Clopidogrel 75 Mg Tab) 75 mg PO QDAY [facility] Last Admin: 04/11/22 09:52 Dose: 75 mg Divalproex Sodium (Divalproex Dr 125 Mg Tab) 125 mg PO BID [facility] Last Admin: 04/11/22 09:55 Dose: Not Given Docusate Sodium (Docusate Sodium 100 Mg Cap) 100 mg PO BID [facility] Last Admin: 04/11/22 09:52 Dose: 100 mg Ibuprofen (Ibuprofen 200 Mg Tab) 200 mg PO QHS [facility] Last Admin: 04/10/22 22:49 Dose: 200 mg Levothyroxine Sodium (Levothyroxine 50 Mcg Tab) 50 mcg PO DAILY@0600 [facility] Last Admin: 04/11/22 06:24 Dose: 50 mcg Losartan Potassium (Losartan 50 Mg Tab) 50 mg PO QDAY [facility] Last Admin: 04/11/22 09:54 Dose: Not Given Magnesium Hydroxide (Magnesium Hydroxide (Mom) Oral Liqd Udc) 30 ml PO Q4H PRN PRN Reason: Constipation Risperidone (Risperidone 0.25 Mg Tab) 0.5 mg PO TID [facility] Last Admin: 04/11/22 09:54 Dose: Not Given Valacyclovir HCl (Valacyclovir 500 Mg Tab) 500 mg PO BID [facility] Last Admin: 04/11/22 09:55 Dose: Not Given Results - Results Labs/Vitals: Laboratory Last Values WBC 8.5 K/mm3 (4.5-11.0) 04/05/22 03:25 RBC 4.02 M/mm3 (3.65-5.03) 04/05/22 03:25 Hgb 13.9 gm/dl (11.8-15.2) 04/05/22 03:25 Hct 38.9 % (35.5-45.6) 04/05/22 03:25 MCV 97 fl (84-94) H 04/05/22 03:25 MCH 35 pg (28-32) H 04/05/22 03:25 MCHC 36 % (32-34) H 04/05/22 03:25 RDW 13.1 % (13.2-15.2) L 04/05/22 03:25 Plt Count 267 K/mm3 (140-440) 04/05/22 03:25 Lymph % (Auto) 20.2 % (13.4-35.0) 04/05/22 03:25 [place] % (Auto) 12.9 % (0.0-7.3) H 04/05/22 03:25 Eos % (Auto) 3.1 % (0.0-4.3) 04/05/22 03:25 Baso % (Auto) 0.6 % (0.0-1.8) 04/05/22 03:25 Lymph # (Auto) 1.7 K/mm3 (1.2-5.4) 04/05/22 03:25 [place] # (Auto) 1.1 K/mm3 (0.0-0.8) H 04/05/22 03:25 Eos # (Auto) 0.3 K/mm3 (0.0-0.4) 04/05/22 03:25 Baso # (Auto) 0.1 K/mm3 (0.0-0.1) 04/05/22 03:25 Seg Neutrophils % 63.2 % (40.0-70.0) 04/05/22 03:25 Seg Neutrophils # 5.4 K/mm3 (1.8-7.7) 04/05/22 03:25 Sodium 136 mmol/L (137-145) L 04/05/22 03:25 Potassium 4.3 mmol/L (3.6-5.0) 04/05/22 03:25 Chloride 96.9 mmol/L (98-107) L 04/05/22 03:25 Carbon Dioxide 28 mmol/L (22-30) 04/05/22 03:25 Anion Gap 15 mmol/L 04/05/22 03:25 BUN 26 mg/dL (9-20) H 04/05/22 03:25 Creatinine 1.4 mg/dL (0.8-1.3) H 04/05/22 03:25 Estimated GFR 50 ml/min 04/05/22 03:25 BUN/Creatinine Ratio 19 % 04/05/22 03:25 Glucose 99 mg/dL (75-100) 04/05/22 03:25 POC Glucose 98 mg/dL (70-105) 04/05/22 03:54 Hemoglobin A1c 5.2 % (4-6) 04/05/22 03:25 Calcium 9.8 mg/dL (8.4-10.2) 04/05/22 03:25 Total Bilirubin 0.30 mg/dL (0.1-1.2) 04/05/22 03:25 AST 28 units/L (5-40) 04/05/22 03:25 ALT 25 units/L (7-56) 04/05/22 03:25 Alkaline Phosphatase 52 units/L (35-129) 04/05/22 03:25 Total Protein 6.7 g/dL (6.3-8.2) 04/05/22 03:25 Albumin 3.9 g/dL (3.9-5) 04/05/22 03:25 Albumin/Globulin Ratio 1.4 % 04/05/22 03:25 Triglycerides 62 mg/dL (2-149) 04/05/22 03:25 Cholesterol 98 mg/dL (50-199) 04/05/22 03:25 LDL Cholesterol Direct 49 mg/dL (50-130) L 04/05/22 03:25 HDL Cholesterol 39 mg/dL (40-59) L 04/05/22 03:25 Cholesterol/HDL Ratio 2.51 % 04/05/22 03:25 TSH 2.600 mlU/mL (0.270-4.200) 04/05/22 03:25 Last Vital Signs Temp 98.2 F 04/09/22 22:00 Pulse 52 L 04/10/22 10:10 Resp 18 04/09/22 22:00 BP 139/66 04/10/22 10:10 Pulse Ox 100 04/09/22 22:00
[2022-04-11] MEDS: IBUPROFEN 200 MG TAB PO SCH (21:09)
[2022-04-12] MEDS: LEVOTHYROXINE 50 MCG TAB PO SCH (05:45)
[2022-04-12] MEDS: DOCUSATE SODIUM 100 MG CAP PO SCH ×2 (09:26→21:00)
[2022-04-12] MEDS: CLOPIDOGREL 75 MG TAB PO SCH (09:27)
--- NOTE | 2022-04-12 09:38 | Progress Note ---
Subjective Date of service: 04/12/22 Principal diagnosis: Delusional Disorder Subjective Comment: The patient was seen today. He is calm and cooperative. He is walking in the [place]. He says he's getting his exercise in. He asks for an ensure. The patient denies SI/HI or hallucinations of any kind. The patient will discharge tomorrow if night uneventful and has outpatient resources in place. 04/11 The patient was seen today. He says he is doing fine. The patient asked to speak to the about an assisted living. I informed him that I would inform the of his request. The patient denies SI/HI or hallucinations. The patient will discharge once outpatient resources are in place to ensure continuity of his mental wellness. 04/10 The patient was seen today. He says he is doing fair. He refers to himself as Dr. Vásquez. He denies SI/HI or hallucinations of any kind. 04/09 The patient was seen today. He says he is feeling fine. He refers to himself as "Dr. Vásquez." The patient denies SI/HI or hallucinations. He says he has not had a bowel movement in 4 days. 04/08 The patient was seen today. He is sitting in the dayroom. He is delusional. He is calm and cooperative. He introduces himself as "Dr. Vásquez." He denies SI/HI or hallucinations. REVIEW OF SYSTEMS Constitutional: Negative for weight loss ENT: Negative for stridor Respiratory: Negative for cough or hemoptysis All other systems reviewed and are negative MENTAL STATUS EXAMINATION General Appearance and Behavior: Age appropriate, wearing appropriate clothes, cooperative, polite with questioning, good eye contact Cooperation: cooperative Psychomotor Behavior: Psychomotor normal Mood: fair Affect and affective range: congruent with stated affect Thought Process: Circumstantial Thought Content: Paranoid/delusions Speech: Normal volume, Regular rate and rhythm Suicidal Ideation: Denies Homicidal Ideation: Denies Hallucination: Denies Delusions: Yes Impulse Control: Limited Insight and Judgment: Limited Memory: Intact Attention:attentive Orientation: Alert and oriented Diagnoses: Delusional Disorder Treatment Plan Patient admitted for inpatient psychiatric evaluation, medication adjustment and close monitoring The patient's behavior, mood, sleep and appetite will be closely monitored. Patient enrolled in individual and group therapeutic sessions and encouraged to attend. Patient provided with a safe and structured environment. Patient's physical health needs will be addressed by the Hospitalist. Hospitalist Consulted Labs including CBC, CMP, Lipid profile and Hemoglobin A1C levels ordered for baseline reference Social Assessment will be completed and the Four Slide Operator will work with patient and family to ensure a suitable and safe disposition Medication adjustment will be made as clinically indicated No changes made today Usual Wellness Gnosticism/Preservation: - Start Trazodone 50 mg po QHS & 50 mg po QHS PRN between 10 PM & 2 AM for insomnia - Start Melatonin 5 mg po QHS to promote circadian rhythm The patient agreed on the treatment plan, understood the risk, benefit, alternative treatment, potential consequence of no treatment, and gave informed consent. Estimated days: 7 Post hospital care: primary care provider, psychiatric provider Case staffed with Dr. Torres Medications and Allergies Allergies Allergy/AdvReac Type Severity Reaction Status Date / Time Sulfa (Sulfonamide Allergy Vomiting Verified 04/05/22 01:32 Antibiotics) Home Medications Medication Instructions Recorded Confirmed Last Taken Type Aspirin [Vazalore] 81 mg PO DAILY 04/05/22 04/05/22 Unknown History AtorvaSTATin [Lipitor] 10 mg PO QHS 04/05/22 04/05/22 Unknown History Clopidogrel [Plavix] 75 mg PO QDAY 04/05/22 04/05/22 Unknown History Famciclovir [Famvir Tab] 500 mg PO Q12H 04/05/22 04/05/22 Unknown History Ibuprofen [Advil Migraine] 200 mg PO HS 04/05/22 04/05/22 Unknown History Levothyroxine [Synthroid] 50 mcg PO QAM 04/05/22 04/05/22 Unknown History Olmesartan Medoxomil [Benicar] 20 mg PO DAILY 04/05/22 04/05/22 Unknown History Active Meds: Active Medications Acetaminophen (Acetaminophen 325 Mg Tab) 650 mg PO Q6H PRN PRN Reason: Pain, Mild (1-3) Aspirin (Aspirin Ec 81 Mg Tab) 81 mg PO QDAY [facility] Last Admin: 04/11/22 09:55 Dose: Not Given Atorvastatin Calcium (Atorvastatin 10 Mg Tab) 10 mg PO QHS [facility] Last Admin: 04/11/22 21:11 Dose: Not Given Clopidogrel Bisulfate (Clopidogrel 75 Mg Tab) 75 mg PO QDAY [facility] Last Admin: 04/12/22 09:27 Dose: 75 mg Divalproex Sodium (Divalproex Dr 125 Mg Tab) 125 mg PO BID [facility] Last Admin: 04/11/22 21:11 Dose: Not Given Docusate Sodium (Docusate Sodium 100 Mg Cap) 100 mg PO BID [facility] Last Admin: 04/12/22 09:26 Dose: 100 mg Ibuprofen (Ibuprofen 200 Mg Tab) 200 mg PO QHS [facility] Last Admin: 04/11/22 21:09 Dose: 200 mg Levothyroxine Sodium (Levothyroxine 50 Mcg Tab) 50 mcg PO DAILY@0600 [facility] Last Admin: 04/12/22 05:45 Dose: 50 mcg Losartan Potassium (Losartan 50 Mg Tab) 50 mg PO QDAY [facility] Last Admin: 04/11/22 09:54 Dose: Not Given Magnesium Hydroxide (Magnesium Hydroxide (Mom) Oral Liqd Udc) 30 ml PO Q4H PRN PRN Reason: Constipation Risperidone (Risperidone 0.25 Mg Tab) 0.5 mg PO TID [facility] Last Admin: 04/11/22 21:14 Dose: Not Given Valacyclovir HCl (Valacyclovir 500 Mg Tab) 500 mg PO BID [facility] Last Admin: 04/11/22 21:11 Dose: Not Given Results - Results Labs/Vitals: Laboratory Last Values WBC 8.5 K/mm3 (4.5-11.0) 04/05/22 03:25 RBC 4.02 M/mm3 (3.65-5.03) 04/05/22 03:25 Hgb 13.9 gm/dl (11.8-15.2) 04/05/22 03:25 Hct 38.9 % (35.5-45.6) 04/05/22 03:25 MCV 97 fl (84-94) H 04/05/22 03:25 MCH 35 pg (28-32) H 04/05/22 03:25 MCHC 36 % (32-34) H 04/05/22 03:25 RDW 13.1 % (13.2-15.2) L 04/05/22 03:25 Plt Count 267 K/mm3 (140-440) 04/05/22 03:25 Lymph % (Auto) 20.2 % (13.4-35.0) 04/05/22 03:25 [place] % (Auto) 12.9 % (0.0-7.3) H 04/05/22 03:25 Eos % (Auto) 3.1 % (0.0-4.3) 04/05/22 03:25 Baso % (Auto) 0.6 % (0.0-1.8) 04/05/22 03:25 Lymph # (Auto) 1.7 K/mm3 (1.2-5.4) 04/05/22 03:25 [place] # (Auto) 1.1 K/mm3 (0.0-0.8) H 04/05/22 03:25 Eos # (Auto) 0.3 K/mm3 (0.0-0.4) 04/05/22 03:25 Baso # (Auto) 0.1 K/mm3 (0.0-0.1) 04/05/22 03:25 Seg Neutrophils % 63.2 % (40.0-70.0) 04/05/22 03:25 Seg Neutrophils # 5.4 K/mm3 (1.8-7.7) 04/05/22 03:25 Sodium 136 mmol/L (137-145) L 04/05/22 03:25 Potassium 4.3 mmol/L (3.6-5.0) 04/05/22 03:25 Chloride 96.9 mmol/L (98-107) L 04/05/22 03:25 Carbon Dioxide 28 mmol/L (22-30) 04/05/22 03:25 Anion Gap 15 mmol/L 04/05/22 03:25 BUN 26 mg/dL (9-20) H 04/05/22 03:25 Creatinine 1.4 mg/dL (0.8-1.3) H 04/05/22 03:25 Estimated GFR 50 ml/min 04/05/22 03:25 BUN/Creatinine Ratio 19 % 04/05/22 03:25 Glucose 99 mg/dL (75-100) 04/05/22 03:25 POC Glucose 98 mg/dL (70-105) 04/05/22 03:54 Hemoglobin A1c 5.2 % (4-6) 04/05/22 03:25 Calcium 9.8 mg/dL (8.4-10.2) 04/05/22 03:25 Total Bilirubin 0.30 mg/dL (0.1-1.2) 04/05/22 03:25 AST 28 units/L (5-40) 04/05/22 03:25 ALT 25 units/L (7-56) 04/05/22 03:25 Alkaline Phosphatase 52 units/L (35-129) 04/05/22 03:25 Total Protein 6.7 g/dL (6.3-8.2) 04/05/22 03:25 Albumin 3.9 g/dL (3.9-5) 04/05/22 03:25 Albumin/Globulin Ratio 1.4 % 04/05/22 03:25 Triglycerides 62 mg/dL (2-149) 04/05/22 03:25 Cholesterol 98 mg/dL (50-199) 04/05/22 03:25 LDL Cholesterol Direct 49 mg/dL (50-130) L 04/05/22 03:25 HDL Cholesterol 39 mg/dL (40-59) L 04/05/22 03:25 Cholesterol/HDL Ratio 2.51 % 04/05/22 03:25 TSH 2.600 mlU/mL (0.270-4.200) 04/05/22 03:25 Last Vital Signs Temp 98.2 F 04/09/22 22:00 Pulse 52 L 04/10/22 10:10 Resp 18 04/09/22 22:00 BP 139/66 04/10/22 10:10 Pulse Ox 100 04/09/22 22:00
[2022-04-12] MEDS: valACYclovir 500 MG TAB PO SCH ×2 (09:54→21:01)
[2022-04-12] MEDS: ASPIRIN EC 81 MG TAB PO SCH (09:54)
[2022-04-12] MEDS: risperiDONE 0.25 MG TAB PO SCH ×3 (09:54→21:01)
[2022-04-12] MEDS: DIVALPROEX DR 125 MG TAB PO SCH ×2 (10:10→21:01)
[2022-04-12] MEDS: LOSARTAN 50 MG TAB PO SCH (13:09)
[2022-04-12] MEDS: IBUPROFEN 200 MG TAB PO SCH (21:00)
[2022-04-13] MEDS: LEVOTHYROXINE 50 MCG TAB PO SCH (06:21)
--- NOTE | 2022-04-13 08:55 | Progress Note ---
Subjective Date of service: 04/13/22 Principal diagnosis: Delusional Disorder Subjective Comment: The patient was seen today. He is in his room awake. He is calm and cooperative. He says he's doing pretty well. He denies SI/HI or hallucinations of any kind. 04/12 The patient was seen today. He is calm and cooperative. He is walking in the [place]. He says he's getting his exercise in. He asks for an ensure. The patient denies SI/HI or hallucinations of any kind. The patient will discharge tomorrow if night uneventful and has outpatient resources in place. 04/11 The patient was seen today. He says he is doing fine. The patient asked to speak to the about an assisted living. I informed him that I would inform the of his request. The patient denies SI/HI or hallucinations. The patient will discharge once outpatient resources are in place to ensure continuity of his mental wellness. 04/10 The patient was seen today. He says he is doing fair. He refers to himself as Dr. Vásquez. He denies SI/HI or hallucinations of any kind. 04/09 The patient was seen today. He says he is feeling fine. He refers to himself as "Dr. Vásquez." The patient denies SI/HI or hallucinations. He says he has not had a bowel movement in 4 days. 04/08 The patient was seen today. He is sitting in the dayroom. He is delusional. He is calm and cooperative. He introduces himself as "Dr. Vásquez." He denies SI/HI or hallucinations. REVIEW OF SYSTEMS Constitutional: Negative for weight loss ENT: Negative for stridor Respiratory: Negative for cough or hemoptysis All other systems reviewed and are negative MENTAL STATUS EXAMINATION General Appearance and Behavior: Age appropriate, wearing appropriate clothes, cooperative, polite with questioning, good eye contact Cooperation: cooperative Psychomotor Behavior: Psychomotor normal Mood: fair Affect and affective range: congruent with stated affect Thought Process: Circumstantial Thought Content: Paranoid/delusions Speech: Normal volume, Regular rate and rhythm Suicidal Ideation: Denies Homicidal Ideation: Denies Hallucination: Denies Delusions: Yes Impulse Control: Limited Insight and Judgment: Limited Memory: Intact Attention:attentive Orientation: Alert and oriented Diagnoses: Delusional Disorder Treatment Plan Patient admitted for inpatient psychiatric evaluation, medication adjustment and close monitoring The patient's behavior, mood, sleep and appetite will be closely monitored. Patient enrolled in individual and group therapeutic sessions and encouraged to attend. Patient provided with a safe and structured environment. Patient's physical health needs will be addressed by the Hospitalist. Hospitalist Consulted Labs including CBC, CMP, Lipid profile and Hemoglobin A1C levels ordered for baseline reference Social Assessment will be completed and the Director Of Sustainability Programs will work with p atient and family to ensure a suitable and safe disposition Medication adjustment will be made as clinically indicated No changes made today Usual Wellness Pentecostalism/Preservation: - Start Trazodone 50 mg po QHS & 50 mg po QHS PRN between 10 PM & 2 AM for insomnia - Start Melatonin 5 mg po QHS to promote circadian rhythm The patient agreed on the treatment plan, understood the risk, benefit, alternative treatment, potential consequence of no treatment, and gave informed consent. Estimated days: 7 Post hospital care: primary care provider, psychiatric provider Case staffed with Dr. Torres Medications and Allergies Allergies Allergy/AdvReac Type Severity Reaction Status Date / Time Sulfa (Sulfonamide Allergy Vomiting Verified 04/05/22 01:32 Antibiotics) Home Medications Medication Instructions Recorded Confirmed Last Taken Type Aspirin [Vazalore] 81 mg PO DAILY 04/05/22 04/05/22 Unknown History AtorvaSTATin [Lipitor] 10 mg PO QHS 04/05/22 04/05/22 Unknown History Clopidogrel [Plavix] 75 mg PO QDAY 04/05/22 04/05/22 Unknown History Famciclovir [Famvir Tab] 500 mg PO Q12H 04/05/22 04/05/22 Unknown History Ibuprofen [Advil Migraine] 200 mg PO HS 04/05/22 04/05/22 Unknown History Levothyroxine [Synthroid] 50 mcg PO QAM 04/05/22 04/05/22 Unknown History Olmesartan Medoxomil [Benicar] 20 mg PO DAILY 04/05/22 04/05/22 Unknown History Active Meds: Active Medications Acetaminophen (Acetaminophen 325 Mg Tab) 650 mg PO Q6H PRN PRN Reason: Pain, Mild (1-3) Aspirin (Aspirin Ec 81 Mg Tab) 81 mg PO QDAY [facility] Last Admin: 04/12/22 09:54 Dose: Not Given Atorvastatin Calcium (Atorvastatin 10 Mg Tab) 10 mg PO QHS [facility] Last Admin: 04/12/22 21:00 Dose: 10 mg Clopidogrel Bisulfate (Clopidogrel 75 Mg Tab) 75 mg PO QDAY [facility] Last Admin: 04/12/22 09:27 Dose: 75 mg Divalproex Sodium (Divalproex Dr 125 Mg Tab) 125 mg PO BID [facility] Last Admin: 04/12/22 21:01 Dose: Not Given Docusate Sodium (Docusate Sodium 100 Mg Cap) 100 mg PO BID [facility] Last Admin: 04/12/22 21:00 Dose: 100 mg Ibuprofen (Ibuprofen 200 Mg Tab) 200 mg PO QHS [facility] Last Admin: 04/12/22 21:00 Dose: 200 mg Levothyroxine Sodium (Levothyroxine 50 Mcg Tab) 50 mcg PO DAILY@0600 [facility] Last Admin: 04/13/22 06:21 Dose: 50 mcg Losartan Potassium (Losartan 50 Mg Tab) 50 mg PO QDAY [facility] Last Admin: 04/12/22 13:09 Dose: Not Given Magnesium Hydroxide (Magnesium Hydroxide (Mom) Oral Liqd Udc) 30 ml PO Q4H PRN PRN Reason: Constipation Risperidone (Risperidone 0.25 Mg Tab) 0.5 mg PO TID [facility] Last Admin: 04/12/22 21:01 Dose: Not Given Valacyclovir HCl (Valacyclovir 500 Mg Tab) 500 mg PO BID [facility] Last Admin: 04/12/22 21:01 Dose: Not Given Results - Results Labs/Vitals: Laboratory Last Values WBC 8.5 K/mm3 (4.5-11.0) 04/05/22 03:25 RBC 4.02 M/mm3 (3.65-5.03) 04/05/22 03:25 Hgb 13.9 gm/dl (11.8-15.2) 04/05/22 03:25 Hct 38.9 % (35.5-45.6) 04/05/22 03:25 MCV 97 fl (84-94) H 04/05/22 03:25 MCH 35 pg (28-32) H 04/05/22 03:25 MCHC 36 % (32-34) H 04/05/22 03:25 RDW 13.1 % (13.2-15.2) L 04/05/22 03:25 Plt Count 267 K/mm3 (140-440) 04/05/22 03:25 Lymph % (Auto) 20.2 % (13.4-35.0) 04/05/22 03:25 [place] % (Auto) 12.9 % (0.0-7.3) H 04/05/22 03:25 Eos % (Auto) 3.1 % (0.0-4.3) 04/05/22 03:25 Baso % (Auto) 0.6 % (0.0-1.8) 04/05/22 03:25 Lymph # (Auto) 1.7 K/mm3 (1.2-5.4) 04/05/22 03:25 [place] # (Auto) 1.1 K/mm3 (0.0-0.8) H 04/05/22 03:25 Eos # (Auto) 0.3 K/mm3 (0.0-0.4) 04/05/22 03:25 Baso # (Auto) 0.1 K/mm3 (0.0-0.1) 04/05/22 03:25 Seg Neutrophils % 63.2 % (40.0-70.0) 04/05/22 03:25 Seg Neutrophils # 5.4 K/mm3 (1.8-7.7) 04/05/22 03:25 Sodium 136 mmol/L (137-145) L 04/05/22 03:25 Potassium 4.3 mmol/L (3.6-5.0) 04/05/22 03:25 Chloride 96.9 mmol/L (98-107) L 04/05/22 03:25 Carbon Dioxide 28 mmol/L (22-30) 04/05/22 03:25 Anion Gap 15 mmol/L 04/05/22 03:25 BUN 26 mg/dL (9-20) H 04/05/22 03:25 Creatinine 1.4 mg/dL (0.8-1.3) H 04/05/22 03:25 Estimated GFR 50 ml/min 04/05/22 03:25 BUN/Creatinine Ratio 19 % 04/05/22 03:25 Glucose 99 mg/dL (75-100) 04/05/22 03:25 POC Glucose 98 mg/dL (70-105) 04/05/22 03:54 Hemoglobin A1c 5.2 % (4-6) 04/05/22 03:25 Calcium 9.8 mg/dL (8.4-10.2) 04/05/22 03:25 Total Bilirubin 0.30 mg/dL (0.1-1.2) 04/05/22 03:25 AST 28 units/L (5-40) 04/05/22 03:25 ALT 25 units/L (7-56) 04/05/22 03:25 Alkaline Phosphatase 52 units/L (35-129) 04/05/22 03:25 Total Protein 6.7 g/dL (6.3-8.2) 04/05/22 03:25 Albumin 3.9 g/dL (3.9-5) 04/05/22 03:25 Albumin/Globulin Ratio 1.4 % 04/05/22 03:25 Triglycerides 62 mg/dL (2-149) 04/05/22 03:25 Cholesterol 98 mg/dL (50-199) 04/05/22 03:25 LDL Cholesterol Direct 49 mg/dL (50-130) L 04/05/22 03:25 HDL Cholesterol 39 mg/dL (40-59) L 04/05/22 03:25 Cholesterol/HDL Ratio 2.51 % 04/05/22 03:25 TSH 2.600 mlU/mL (0.270-4.200) 04/05/22 03:25 Last Vital Signs Temp 97.4 F L 04/12/22 21:20 Pulse 50 L 04/12/22 21:20 Resp 18 04/12/22 21:20 BP 143/52 04/12/22 21:20 Pulse Ox 100 04/12/22 21:20
[2022-04-13] MEDS: DOCUSATE SODIUM 100 MG CAP PO SCH ×2 (09:56→21:04)
[2022-04-13] MEDS: CLOPIDOGREL 75 MG TAB PO SCH (09:56)
[2022-04-13] MEDS: valACYclovir 500 MG TAB PO SCH ×2 (09:58→21:08)
[2022-04-13] MEDS: risperiDONE 0.25 MG TAB PO SCH ×3 (10:02→21:08)
[2022-04-13] MEDS: DIVALPROEX DR 125 MG TAB PO SCH ×2 (10:03→21:08)
[2022-04-13] MEDS: LOSARTAN 50 MG TAB PO SCH (10:04)
[2022-04-13] MEDS: ASPIRIN EC 81 MG TAB PO SCH ×2 (10:07→21:04)
[2022-04-13] MEDS: IBUPROFEN 200 MG TAB PO SCH (21:05)
[2022-04-14] MEDS: LEVOTHYROXINE 50 MCG TAB PO SCH (06:08)
[2022-04-14] MEDS: DOCUSATE SODIUM 100 MG CAP PO SCH ×2 (10:09→21:00)
[2022-04-14] MEDS: CLOPIDOGREL 75 MG TAB PO SCH (10:09)
[2022-04-14] MEDS: LOSARTAN 50 MG TAB PO SCH (10:11)
[2022-04-14] MEDS: risperiDONE 0.25 MG TAB PO SCH ×3 (10:11→21:01)
[2022-04-14] MEDS: DIVALPROEX DR 125 MG TAB PO SCH ×2 (10:11→21:01)
[2022-04-14] MEDS: valACYclovir 500 MG TAB PO SCH ×2 (10:12→21:00)
--- NOTE | 2022-04-14 18:33 | Progress Note ---
Subjective Date of service: 04/14/22 Principal diagnosis: Delusional Disorder Subjective Comment: Subjective Date of service: 04/14/2022: Principal diagnosis: Delusional Disorder Subjective Comment: Patient seen today alert and able to communicate with me. Patient ok to go home from psych stand point, but waiting on placement.Patient denies any SI/HI at this time. 04/13/22 Principal diagnosis: Delusional Disorder Subjective Comment: The patient was seen today. He is in his room awake. He is calm and cooperative. He says he's doing pretty well. He denies SI/HI or hallucinations of any kind. 04/12 The patient was seen today. He is calm and cooperative. He is walking in the [place]. He says he's getting his exercise in. He asks for an ensure. The patient denies SI/HI or hallucinations of any kind. The patient will discharge tomorrow if night uneventful and has outpatient resources in place. 04/11 The patient was seen today. He says he is doing fine. The patient asked to speak to the about an assisted living. I informed him that I would inform the of his request. The patient denies SI/HI or hallucinations. The patient will discharge once outpatient resources are in place to ensure continuity of his mental wellness. 04/10 The patient was seen today. He says he is doing fair. He refers to himself as Dr. Vásquez. He denies SI/HI or hallucinations of any kind. 04/09 The patient was seen today. He says he is feeling fine. He refers to himself as "Dr. Vásquez." The patient denies SI/HI or hallucinations. He says he has not had a bowel movement in 4 days. 04/08 The patient was seen today. He is sitting in the dayroom. He is delusional. He is calm and cooperative. He introduces himself as "Dr. Vásquez." He denies SI/HI or hallucinations. REVIEW OF SYSTEMS Constitutional: Negative for weight loss ENT: Negative for stridor Respiratory: Negative for cough or hemoptysis All other systems reviewed and are negative MENTAL STATUS EXAMINATION General Appearance and Behavior: Age appropriate, wearing appropriate clothes, cooperative, polite with questioning, good eye contact Cooperation: cooperative Psychomotor Behavior: Psychomotor normal Mood: fair Affect and affective range: congruent with stated affect Thought Process: Circumstantial Thought Content: good Speech: Normal volume, Regular rate and rhythm Suicidal Ideation: Denies Homicidal Ideation: Denies Hallucination: Denies Delusions: No Impulse Control: Limited Insight and Judgment: Limited Memory: Intact Attention:attentive Orientation: Alert and oriented Diagnoses: Delusional Disorder Treatment Plan Patient cleared from psych stand point Patient provided with a safe and structured environment. Patient's physical health needs will be addressed by the Hospitalist. Hospitalist Consulted Labs including CBC, CMP, Lipid profile and Hemoglobin A1C levels ordered for baseline reference Social Assessment will be completed and the Automotive Sales Manager will work with patient and family to ensure a suitable and safe disposition Medication adjustment will be made as clinically indicated The patient agreed on the treatment plan, understood the risk, benefit, alternative treatment, potential consequence of no treatment, and gave informed consent. Estimated days: 7 Post hospital care: primary care provider, psychiatric provider Case staffed with Dr. Torres Medications and Allergies Allergies Allergy/AdvReac Type Severity Reaction Status Date / Time Sulfa (Sulfonamide Allergy Vomiting Verified 04/05/22 01:32 Antibiotics) Home Medications Medication Instructions Recorded Confirmed Last Taken Type Aspirin [Vazalore] 81 mg PO DAILY 04/05/22 04/05/22 Unknown History AtorvaSTATin [Lipitor] 10 mg PO QHS 04/05/22 04/05/22 Unknown History Clopidogrel [Plavix] 75 mg PO QDAY 04/05/22 04/05/22 Unknown History Famciclovir [Famvir Tab] 500 mg PO Q12H 04/05/22 04/05/22 Unknown History Ibuprofen [Advil Migraine] 200 mg PO HS 04/05/22 04/05/22 Unknown History Levothyroxine [Synthroid] 50 mcg PO QAM 04/05/22 04/05/22 Unknown History Olmesartan Medoxomil [Benicar] 20 mg PO DAILY 04/05/22 04/05/22 Unknown History Active Meds: Active Medications Acetaminophen (Acetaminophen 325 Mg Tab) 650 mg PO Q6H PRN PRN Reason: Pain, Mild (1-3) Aspirin (Aspirin Ec 81 Mg Tab) 81 mg PO QHS [facility] Last Admin: 04/13/22 21:04 Dose: 81 mg Atorvastatin Calcium (Atorvastatin 10 Mg Tab) 10 mg PO QHS [facility] Last Admin: 04/13/22 21:03 Dose: 10 mg Clopidogrel Bisulfate (Clopidogrel 75 Mg Tab) 75 mg PO QDAY [facility] Last Admin: 04/14/22 10:09 Dose: 37.5 mg Divalproex Sodium (Divalproex Dr 125 Mg Tab) 125 mg PO BID [facility] Last Admin: 04/14/22 10:11 Dose: Not Given Docusate Sodium (Docusate Sodium 100 Mg Cap) 100 mg PO BID [facility] Last Admin: 04/14/22 10:09 Dose: 100 mg Ibuprofen (Ibuprofen 200 Mg Tab) 200 mg PO QHS [facility] Last Admin: 04/13/22 21:05 Dose: 200 mg Levothyroxine Sodium (Levothyroxine 50 Mcg Tab) 50 mcg PO DAILY@0600 [facility] Last Admin: 04/14/22 06:08 Dose: 50 mcg Losartan Potassium (Losartan 50 Mg Tab) 50 mg PO QDAY [facility] Last Admin: 04/14/22 10:11 Dose: Not Given Magnesium Hydroxide (Magnesium Hydroxide (Mom) Oral Liqd Udc) 30 ml PO Q4H PRN PRN Reason: Constipation Risperidone (Risperidone 0.25 Mg Tab) 0.5 mg PO TID [facility] Last Admin: 04/14/22 10:11 Dose: Not Given Valacyclovir HCl (Valacyclovir 500 Mg Tab) 500 mg PO BID [facility] Last Admin: 04/14/22 10:12 Dose: Not Given Results - Results Labs/Vitals: Laboratory Last Values WBC 8.5 K/mm3 (4.5-11.0) 04/05/22 03:25 RBC 4.02 M/mm3 (3.65-5.03) 04/05/22 03:25 Hgb 13.9 gm/dl (11.8-15.2) 04/05/22 03:25 Hct 38.9 % (35.5-45.6) 04/05/22 03:25 MCV 97 fl (84-94) H 04/05/22 03:25 MCH 35 pg (28-32) H 04/05/22 03:25 MCHC 36 % (32-34) H 04/05/22 03:25 RDW 13.1 % (13.2-15.2) L 04/05/22 03:25 Plt Count 267 K/mm3 (140-440) 04/05/22 03:25 Lymph % (Auto) 20.2 % (13.4-35.0) 04/05/22 03:25 [place] % (Auto) 12.9 % (0.0-7.3) H 04/05/22 03:25 Eos % (Auto) 3.1 % (0.0-4.3) 04/05/22 03:25 Baso % (Auto) 0.6 % (0.0-1.8) 04/05/22 03:25 Lymph # (Auto) 1.7 K/mm3 (1.2-5.4) 04/05/22 03:25 [place] # (Auto) 1.1 K/mm3 (0.0-0.8) H 04/05/22 03:25 Eos # (Auto) 0.3 K/mm3 (0.0-0.4) 04/05/22 03:25 Baso # (Auto) 0.1 K/mm3 (0.0-0.1) 04/05/22 03:25 Seg Neutrophils % 63.2 % (40.0-70.0) 04/05/22 03:25 Seg Neutrophils # 5.4 K/mm3 (1.8-7.7) 04/05/22 03:25 Sodium 136 mmol/L (137-145) L 04/05/22 03:25 Potassium 4.3 mmol/L (3.6-5.0) 04/05/22 03:25 Chloride 96.9 mmol/L (98-107) L 04/05/22 03:25 Carbon Dioxide 28 mmol/L (22-30) 04/05/22 03:25 Anion Gap 15 mmol/L 04/05/22 03:25 BUN 26 mg/dL (9-20) H 04/05/22 03:25 Creatinine 1.4 mg/dL (0.8-1.3) H 04/05/22 03:25 Estimated GFR 50 ml/min 04/05/22 03:25 BUN/Creatinine Ratio 19 % 04/05/22 03:25 Glucose 99 mg/dL (75-100) 04/05/22 03:25 POC Glucose 98 mg/dL (70-105) 04/05/22 03:54 Hemoglobin A1c 5.2 % (4-6) 04/05/22 03:25 Calcium 9.8 mg/dL (8.4-10.2) 04/05/22 03:25 Total Bilirubin 0.30 mg/dL (0.1-1.2) 04/05/22 03:25 AST 28 units/L (5-40) 04/05/22 03:25 ALT 25 units/L (7-56) 04/05/22 03:25 Alkaline Phosphatase 52 units/L (35-129) 04/05/22 03:25 Total Protein 6.7 g/dL (6.3-8.2) 04/05/22 03:25 Albumin 3.9 g/dL (3.9-5) 04/05/22 03:25 Albumin/Globulin Ratio 1.4 % 04/05/22 03:25 Triglycerides 62 mg/dL (2-149) 04/05/22 03:25 Cholesterol 98 mg/dL (50-199) 04/05/22 03:25 LDL Cholesterol Direct 49 mg/dL (50-130) L 04/05/22 03:25 HDL Cholesterol 39 mg/dL (40-59) L 04/05/22 03:25 Cholesterol/HDL Ratio 2.51 % 04/05/22 03:25 TSH 2.600 mlU/mL (0.270-4.200) 04/05/22 03:25 Last Vital Signs Temp 98.4 F 04/14/22 08:56 Pulse 57 L 04/14/22 10:11 Resp 16 04/14/22 08:56 BP 126/56 04/14/22 10:11 Pulse Ox 100 04/14/22 08:56
[2022-04-14] MEDS: ASPIRIN EC 81 MG TAB PO SCH (21:00)
[2022-04-14] MEDS: IBUPROFEN 200 MG TAB PO SCH (21:01)
[2022-04-15] MEDS: LEVOTHYROXINE 50 MCG TAB PO SCH (06:02)
[2022-04-15] MEDS: DOCUSATE SODIUM 100 MG CAP PO SCH ×2 (09:32→21:26)
[2022-04-15] MEDS: CLOPIDOGREL 75 MG TAB PO SCH (09:33)
[2022-04-15] MEDS: LOSARTAN 50 MG TAB PO SCH (09:36)
[2022-04-15] MEDS: risperiDONE 0.25 MG TAB PO SCH ×3 (09:36→22:27)
[2022-04-15] MEDS: DIVALPROEX DR 125 MG TAB PO SCH ×2 (09:37→21:26)
[2022-04-15] MEDS: valACYclovir 500 MG TAB PO SCH ×2 (09:37→21:27)
--- NOTE | 2022-04-15 18:20 | Progress Note ---
Subjective Date of service: 04/15/22 Principal diagnosis: Delusional Disorder Subjective Comment: Subjective Date of service: 04/15/22 Principal diagnosis: Delusional Disorder Subjective Comment: Patient seen today . Patient calm and cooperative.Patient refusing to take his antipsychotics because he states he doesnt have any "mood issues". Patient is taking every other medication. Patient waiting on placement. Pt denies any SI/HI at this time. Date of service: 04/14/2022: Principal diagnosis: Delusional Disorder Subjective Comment: Patient seen today alert and able to communicate with me. Patient ok to go home from psych stand point, but waiting on placement.Patient denies any SI/HI at this time. 04/13/22 Principal diagnosis: Delusional Disorder Subjective Comment: The patient was seen today. He is in his room awake. He is calm and cooperative. He says he's doing pretty well. He denies SI/HI or hallucinations of any kind. 04/12 The patient was seen today. He is calm and cooperative. He is walking in the [place]. He says he's getting his exercise in. He asks for an ensure. The patient denies SI/HI or hallucinations of any kind. The patient will discharge tomorrow if night uneventful and has outpatient resources in place. 04/11 The patient was seen today. He says he is doing fine. The patient asked to speak to the about an assisted living. I informed him that I would inform the of his request. The patient denies SI/HI or hallucinations. The patient will discharge once outpatient resources are in place to ensure continuity of his mental wellness. 04/10 The patient was seen today. He says he is doing fair. He refers to himself as Dr. Vásquez. He denies SI/HI or hallucinations of any kind. 04/09 The patient was seen today. He says he is feeling fine. He refers to himself as "Dr. Vásquez." The patient denies SI/HI or hallucinations. He says he has not had a bowel movement in 4 days. 04/08 The patient was seen today. He is sitting in the dayroom. He is delusional. He is calm and cooperative. He introduces himself as "Dr. Vásquez." He denies SI/HI or hallucinations. REVIEW OF SYSTEMS Constitutional: Negative for weight loss ENT: Negative for stridor Respiratory: Negative for cough or hemoptysis All other systems reviewed and are negative MENTAL STATUS EXAMINATION General Appearance and Behavior: Age appropriate, wearing appropriate clothes, cooperative, polite with questioning, good eye contact Cooperation: cooperative Psychomotor Behavior: Psychomotor normal Mood: fair Affect and affective range: congruent with stated affect Thought Process: Circumstantial Thought Content: good Speech: Normal volume, Regular rate and rhythm Suicidal Ideation: Denies Homicidal Ideation: Denies Hallucination: Denies Delusions: No Impulse Control: Limited Insight and Judgment: Limited Memory: Intact Attention:attentive Orientation: Alert and oriented Diagnoses: Delusional Disorder Treatment Plan Patient cleared from psych stand point Patient provided with a safe and structured environment. Patient's physical health needs will be addressed by the Hospitalist. Hospitalist Consulted Labs including CBC, CMP, Lipid profile and Hemoglobin A1C levels ordered for baseline reference Social Assessment will be completed and the Land Law Examiner will work with patient and family to ensure a suitable and safe disposition Medication adjustment will be made as clinically indicated The patient agreed on the treatment plan, understood the risk, benefit, alternative treatment, potential consequence of no treatment, and gave informed consent. Estimated days: 7 Post hospital care: primary care provider, psychiatric provider Case staffed with Dr. Torres Medications and Allergies Allergies Allergy/AdvReac Type Severity Reaction Status Date / Time Sulfa (Sulfonamide Allergy Vomiting Verified 04/05/22 01:32 Antibiotics) Home Medications Medication Instructions Recorded Confirmed Last Taken Type Aspirin [Vazalore] 81 mg PO DAILY 04/05/22 04/05/22 Unknown History AtorvaSTATin [Lipitor] 10 mg PO QHS 04/05/22 04/05/22 Unknown History Clopidogrel [Plavix] 75 mg PO QDAY 04/05/22 04/05/22 Unknown History Famciclovir [Famvir Tab] 500 mg PO Q12H 04/05/22 04/05/22 Unknown History Ibuprofen [Advil Migraine] 200 mg PO HS 04/05/22 04/05/22 Unknown History Levothyroxine [Synthroid] 50 mcg PO QAM 04/05/22 04/05/22 Unknown History Olmesartan Medoxomil [Benicar] 20 mg PO DAILY 04/05/22 04/05/22 Unknown History Active Meds: Active Medications Acetaminophen (Acetaminophen 325 Mg Tab) 650 mg PO Q6H PRN PRN Reason: Pain, Mild (1-3) Aspirin (Aspirin Ec 81 Mg Tab) 81 mg PO QHS [facility] Last Admin: 04/14/22 21:00 Dose: 81 mg Atorvastatin Calcium (Atorvastatin 10 Mg Tab) 10 mg PO QHS [facility] Last Admin: 04/14/22 21:00 Dose: 10 mg Clopidogrel Bisulfate (Clopidogrel 75 Mg Tab) 75 mg PO QDAY [facility] Last Admin: 04/15/22 09:33 Dose: 37.5 mg Divalproex Sodium (Divalproex Dr 125 Mg Tab) 125 mg PO BID [facility] Last Admin: 04/15/22 09:37 Dose: Not Given Docusate Sodium (Docusate Sodium 100 Mg Cap) 100 mg PO BID [facility] Last Admin: 04/15/22 09:32 Dose: 100 mg Ibuprofen (Ibuprofen 200 Mg Tab) 200 mg PO QHS [facility] Last Admin: 04/14/22 21:01 Dose: 200 mg Levothyroxine Sodium (Levothyroxine 50 Mcg Tab) 50 mcg PO DAILY@0600 [facility] Last Admin: 04/15/22 06:02 Dose: 50 mcg Losartan Potassium (Losartan 50 Mg Tab) 50 mg PO QDAY [facility] Last Admin: 04/15/22 09:36 Dose: Not Given Magnesium Hydroxide (Magnesium Hydroxide (Mom) Oral Liqd Udc) 30 ml PO Q4H PRN PRN Reason: Constipation Risperidone (Risperidone 0.25 Mg Tab) 0.5 mg PO TID [facility] Last Admin: 04/15/22 14:00 Dose: Not Given Valacyclovir HCl (Valacyclovir 500 Mg Tab) 500 mg PO BID [facility] Last Admin: 04/15/22 09:37 Dose: Not Given Results - Results Labs/Vitals: Laboratory Last Values WBC 8.5 K/mm3 (4.5-11.0) 04/05/22 03:25 RBC 4.02 M/mm3 (3.65-5.03) 04/05/22 03:25 Hgb 13.9 gm/dl (11.8-15.2) 04/05/22 03:25 Hct 38.9 % (35.5-45.6) 04/05/22 03:25 MCV 97 fl (84-94) H 04/05/22 03:25 MCH 35 pg (28-32) H 04/05/22 03:25 MCHC 36 % (32-34) H 04/05/22 03:25 RDW 13.1 % (13.2-15.2) L 04/05/22 03:25 Plt Count 267 K/mm3 (140-440) 04/05/22 03:25 Lymph % (Auto) 20.2 % (13.4-35.0) 04/05/22 03:25 [place] % (Auto) 12.9 % (0.0-7.3) H 04/05/22 03:25 Eos % (Auto) 3.1 % (0.0-4.3) 04/05/22 03:25 Baso % (Auto) 0.6 % (0.0-1.8) 04/05/22 03:25 Lymph # (Auto) 1.7 K/mm3 (1.2-5.4) 04/05/22 03:25 [place] # (Auto) 1.1 K/mm3 (0.0-0.8) H 04/05/22 03:25 Eos # (Auto) 0.3 K/mm3 (0.0-0.4) 04/05/22 03:25 Baso # (Auto) 0.1 K/mm3 (0.0-0.1) 04/05/22 03:25 Seg Neutrophils % 63.2 % (40.0-70.0) 04/05/22 03:25 Seg Neutrophils # 5.4 K/mm3 (1.8-7.7) 04/05/22 03:25 Sodium 136 mmol/L (137-145) L 04/05/22 03:25 Potassium 4.3 mmol/L (3.6-5.0) 04/05/22 03:25 Chloride 96.9 mmol/L (98-107) L 04/05/22 03:25 Carbon Dioxide 28 mmol/L (22-30) 04/05/22 03:25 Anion Gap 15 mmol/L 04/05/22 03:25 BUN 26 mg/dL (9-20) H 04/05/22 03:25 Creatinine 1.4 mg/dL (0.8-1.3) H 04/05/22 03:25 Estimated GFR 50 ml/min 04/05/22 03:25 BUN/Creatinine Ratio 19 % 04/05/22 03:25 Glucose 99 mg/dL (75-100) 04/05/22 03:25 POC Glucose 98 mg/dL (70-105) 04/05/22 03:54 Hemoglobin A1c 5.2 % (4-6) 04/05/22 03:25 Calcium 9.8 mg/dL (8.4-10.2) 04/05/22 03:25 Total Bilirubin 0.30 mg/dL (0.1-1.2) 04/05/22 03:25 AST 28 units/L (5-40) 04/05/22 03:25 ALT 25 units/L (7-56) 04/05/22 03:25 Alkaline Phosphatase 52 units/L (35-129) 04/05/22 03:25 Total Protein 6.7 g/dL (6.3-8.2) 04/05/22 03:25 Albumin 3.9 g/dL (3.9-5) 04/05/22 03:25 Albumin/Globulin Ratio 1.4 % 04/05/22 03:25 Triglycerides 62 mg/dL (2-149) 04/05/22 03:25 Cholesterol 98 mg/dL (50-199) 04/05/22 03:25 LDL Cholesterol Direct 49 mg/dL (50-130) L 04/05/22 03:25 HDL Cholesterol 39 mg/dL (40-59) L 04/05/22 03:25 Cholesterol/HDL Ratio 2.51 % 04/05/22 03:25 TSH 2.600 mlU/mL (0.270-4.200) 04/05/22 03:25 Last Vital Signs Temp 97.4 F L 04/15/22 07:47 Pulse 46 L 04/15/22 09:36 Resp 20 04/15/22 07:47 BP 143/61 04/15/22 09:36 Pulse Ox 100 04/15/22 07:47
[2022-04-15] MEDS: ASPIRIN EC 81 MG TAB PO SCH (21:26)
[2022-04-15] MEDS: IBUPROFEN 200 MG TAB PO SCH (21:27)
[2022-04-16] MEDS: LEVOTHYROXINE 50 MCG TAB PO SCH (06:21)
[2022-04-16] MEDS: DOCUSATE SODIUM 100 MG CAP PO SCH ×2 (09:52→21:51)
[2022-04-16] MEDS: CLOPIDOGREL 75 MG TAB PO SCH (09:52)
[2022-04-16] MEDS: risperiDONE 0.25 MG TAB PO SCH ×2 (09:55→20:41)
[2022-04-16] MEDS: LOSARTAN 50 MG TAB PO SCH (09:55)
[2022-04-16] MEDS: DIVALPROEX DR 125 MG TAB PO SCH ×2 (09:56→21:52)
[2022-04-16] MEDS: valACYclovir 500 MG TAB PO SCH ×2 (09:56→21:53)
--- NOTE | 2022-04-16 10:03 | Progress Note ---
Subjective Date of service: 04/16/22 Principal diagnosis: Delusional Disorder Subjective Comment: Subjective Date of service: 04/16/2022 Principal diagnosis: Delusional Disorder Subjective Comment: Patient seen today in the day room. Patient states that his feet are swollen and may need lasix for the swelling. Patient was told that hospitalist will come talk to him and RN informed. Patient denies any SI/HI at this time. Date of service: 04/15/22 Principal diagnosis: Delusional Disorder Subjective Comment: Patient seen today . Patient calm and cooperative.Patient refusing to take his antipsychotics because he states he doesnt have any "mood issues". Patient is taking every other medication. Patient waiting on placement. Pt denies any SI/HI at this time. Date of service: 04/14/2022: Principal diagnosis: Delusional Disorder Subjective Comment: Patient seen today alert and able to communicate with me. Patient ok to go home from psych stand point, but waiting on placement.Patient denies any SI/HI at this time. 04/13/22 Principal diagnosis: Delusional Disorder Subjective Comment: The patient was seen today. He is in his room awake. He is calm and cooperative. He says he's doing pretty well. He denies SI/HI or hallucinations of any kind. 04/12 The patient was seen today. He is calm and cooperative. He is walking in the [place]. He says he's getting his exercise in. He asks for an ensure. The patient denies SI/HI or hallucinations of any kind. The patient will discharge tomorrow if night uneventful and has outpatient resources in place. 04/11 The patient was seen today. He says he is doing fine. The patient asked to speak to the about an assisted living. I informed him that I would inform the of his request. The patient denies SI/HI or hallucinations. The patient will discharge once outpatient resources are in place to ensure continuity of his mental wellness. 04/10 The patient was seen today. He says he is doing fair. He refers to himself as Dr. Vásquez. He denies SI/HI or hallucinations of any kind. 04/09 The patient was seen today. He says he is feeling fine. He refers to himself as "Dr. Vásquez." The patient denies SI/HI or hallucinations. He says he has not had a bowel movement in 4 days. 04/08 The patient was seen today. He is sitting in the dayroom. He is delusional. He is calm and cooperative. He introduces himself as "Dr. Vásquez." He denies SI/HI or hallucinations. REVIEW OF SYSTEMS Constitutional: Negative for weight loss ENT: Negative for stridor Respiratory: Negative for cough or hemoptysis All other systems reviewed and are negative MENTAL STATUS EXAMINATION General Appearance and Behavior: Age appropriate, wearing appropriate clothes, cooperative, polite with questioning, good eye contact Cooperation: cooperative Psychomotor Behavior: Psychomotor normal Mood: fair Affect and affective range: congruent with stated affect Thought Process: Circumstantial Thought Content: good Speech: Normal volume, Regular rate and rhythm Suicidal Ideation: Denies Homicidal Ideation: Denies Hallucination: Denies Delusions: No Impulse Control: Limited Insight and Judgment: Limited Memory: Intact Attention:attentive Orientation: Alert and oriented Diagnoses: Delusional Disorder Treatment Plan Patient cleared from psych stand point Patient provided with a safe and structured environment. Patient's physical health needs will be addressed by the Hospitalist. Hospitalist Consulted Labs including CBC, CMP, Lipid profile and Hemoglobin A1C levels ordered for baseline reference Social Assessment will be completed and the [facility] Help Desk Associate will work with patient and family to ensure a suitable and safe disposition Medication adjustment will be made as clinically indicated The patient agreed on the treatment plan, understood the risk, benefit, alternative treatment, potential consequence of no treatment, and gave informed consent. Estimated days: 7 Post hospital care: primary care provider, psychiatric provider Case staffed with Dr. Torres Medications and Allergies Allergies Allergy/AdvReac Type Severity Reaction Status Date / Time Sulfa (Sulfonamide Allergy Vomiting Verified 04/05/22 01:32 Antibiotics) Home Medications Medication Instructions Recorded Confirmed Last Taken Type Aspirin [[place]] 81 mg PO DAILY 04/05/22 04/05/22 Unknown History AtorvaSTATin [Lipitor] 10 mg PO QHS 04/05/22 04/05/22 Unknown History Clopidogrel [Plavix] 75 mg PO QDAY 04/05/22 04/05/22 Unknown History Famciclovir [Famvir Tab] 500 mg PO Q12H 04/05/22 04/05/22 Unknown History Ibuprofen [Advil Migraine] 200 mg PO HS 04/05/22 04/05/22 Unknown History Levothyroxine [Synthroid] 50 mcg PO QAM 04/05/22 04/05/22 Unknown History Olmesartan Medoxomil [Benicar] 20 mg PO DAILY 04/05/22 04/05/22 Unknown History Active Meds: Active Medications Acetaminophen (Acetaminophen 325 Mg Tab) 650 mg PO Q6H PRN PRN Reason: Pain, Mild (1-3) Aspirin (Aspirin Ec 81 Mg Tab) 81 mg PO QHS [facility] Last Admin: 04/15/22 21:26 Dose: 81 mg Atorvastatin Calcium (Atorvastatin 10 Mg Tab) 10 mg PO QHS [facility] Last Admin: 04/15/22 21:26 Dose: 10 mg Clopidogrel Bisulfate (Clopidogrel 75 Mg Tab) 75 mg PO QDAY [facility] Last Admin: 04/16/22 09:52 Dose: 37.5 mg Divalproex Sodium (Divalproex Dr 125 Mg Tab) 125 mg PO BID [facility] Last Admin: 04/16/22 09:56 Dose: Not Given Docusate Sodium (Docusate Sodium 100 Mg Cap) 100 mg PO BID [facility] Last Admin: 04/16/22 09:52 Dose: 100 mg Ibuprofen (Ibuprofen 200 Mg Tab) 200 mg PO QHS [facility] Last Admin: 04/15/22 21:27 Dose: 200 mg Levothyroxine Sodium (Levothyroxine 50 Mcg Tab) 50 mcg PO DAILY@0600 [facility] Last Admin: 04/16/22 06:21 Dose: 50 mcg Losartan Potassium (Losartan 50 Mg Tab) 50 mg PO QDAY [facility] Last Admin: 04/16/22 09:55 Dose: Not Given Magnesium Hydroxide (Magnesium Hydroxide (Mom) Oral Liqd Udc) 30 ml PO Q4H PRN PRN Reason: Constipation Risperidone (Risperidone 0.25 Mg Tab) 0.5 mg PO TID [facility] Last Admin: 04/16/22 09:55 Dose: Not Given Valacyclovir HCl (Valacyclovir 500 Mg Tab) 500 mg PO BID [facility] Last Admin: 04/16/22 09:56 Dose: Not Given Results - Results Labs/Vitals: Laboratory Last Values WBC 8.5 K/mm3 (4.5-11.0) 04/05/22 03:25 RBC 4.02 M/mm3 (3.65-5.03) 04/05/22 03:25 Hgb 13.9 gm/dl (11.8-15.2) 04/05/22 03:25 Hct 38.9 % (35.5-45.6) 04/05/22 03:25 MCV 97 fl (84-94) H 04/05/22 03:25 MCH 35 pg (28-32) H 04/05/22 03:25 MCHC 36 % (32-34) H 04/05/22 03:25 RDW 13.1 % (13.2-15.2) L 04/05/22 03:25 Plt Count 267 K/mm3 (140-440) 04/05/22 03:25 Lymph % (Auto) 20.2 % (13.4-35.0) 04/05/22 03:25 [place] % (Auto) 12.9 % (0.0-7.3) H 04/05/22 03:25 Eos % (Auto) 3.1 % (0.0-4.3) 04/05/22 03:25 Baso % (Auto) 0.6 % (0.0-1.8) 04/05/22 03:25 Lymph # (Auto) 1.7 K/mm3 (1.2-5.4) 04/05/22 03:25 [place] # (Auto) 1.1 K/mm3 (0.0-0.8) H 04/05/22 03:25 Eos # (Auto) 0.3 K/mm3 (0.0-0.4) 04/05/22 03:25 Baso # (Auto) 0.1 K/mm3 (0.0-0.1) 04/05/22 03:25 Seg Neutrophils % 63.2 % (40.0-70.0) 04/05/22 03:25 Seg Neutrophils # 5.4 K/mm3 (1.8-7.7) 04/05/22 03:25 Sodium 136 mmol/L (137-145) L 04/05/22 03:25 Potassium 4.3 mmol/L (3.6-5.0) 04/05/22 03:25 Chloride 96.9 mmol/L (98-107) L 04/05/22 03:25 Carbon Dioxide 28 mmol/L (22-30) 04/05/22 03:25 Anion Gap 15 mmol/L 04/05/22 03:25 BUN 26 mg/dL (9-20) H 04/05/22 03:25 Creatinine 1.4 mg/dL (0.8-1.3) H 04/05/22 03:25 Estimated GFR 50 ml/min 04/05/22 03:25 BUN/Creatinine Ratio 19 % 04/05/22 03:25 Glucose 99 mg/dL (75-100) 04/05/22 03:25 POC Glucose 98 mg/dL (70-105) 04/05/22 03:54 Hemoglobin A1c 5.2 % (4-6) 04/05/22 03:25 Calcium 9.8 mg/dL (8.4-10.2) 04/05/22 03:25 Total Bilirubin 0.30 mg/dL (0.1-1.2) 04/05/22 03:25 AST 28 units/L (5-40) 04/05/22 03:25 ALT 25 units/L (7-56) 04/05/22 03:25 Alkaline Phosphatase 52 units/L (35-129) 04/05/22 03:25 Total Protein 6.7 g/dL (6.3-8.2) 04/05/22 03:25 Albumin 3.9 g/dL (3.9-5) 04/05/22 03:25 Albumin/Globulin Ratio 1.4 % 04/05/22 03:25 Triglycerides 62 mg/dL (2-149) 04/05/22 03:25 Cholesterol 98 mg/dL (50-199) 04/05/22 03:25 LDL Cholesterol Direct 49 mg/dL (50-130) L 04/05/22 03:25 HDL Cholesterol 39 mg/dL (40-59) L 04/05/22 03:25 Cholesterol/HDL Ratio 2.51 % 04/05/22 03:25 TSH 2.600 mlU/mL (0.270-4.200) 04/05/22 03:25 Last Vital Signs Temp 97.3 F L 04/16/22 07:49 Pulse 50 L 04/16/22 09:55 Resp 18 04/16/22 07:49 BP 155/65 04/16/22 09:55 Pulse Ox 100 04/16/22 07:49
--- NOTE | 2022-04-16 20:29 | Progress Note ---
Assessment and Plan - Patient Problems (1) Delusional disorder Current Visit: Yes Status: Acute Plan to address problem: Continue medical management, supportive care, behavior change counseling (2) Vascular dementia with behavioral disturbance Current Visit: Yes Status: Acute Plan to address problem: Verbal prompting, verbal redirection, benzodiazepine therapy as clinically indicated. (3) Cerebral atherosclerosis Current Visit: Yes Status: Acute Plan to address problem: Risk factor reduction, antiplatelet therapy as clinically indicated. (4) Hypothyroidism Current Visit: Yes Status: Acute Plan to address problem: Continue Synthroid therapy, supportive care. (5) Hypertension Current Visit: Yes Status: Acute Qualifiers: Hypertension type: primary hypertension Qualified Code(s): I10 - Essential (primary) hypertension Plan to address problem: Monitor blood pressure every shift, continue medical management. (6) Advance care planning Current Visit: Yes Status: Acute Plan to address problem: Disease education done, care plan discussed, diagnoses discussed, prognosis discussed, patient is full code. Patient acknowledges understanding and agreement with care plan, +30 minutes. (7) Preventative health care Current Visit: Yes Status: Acute Plan to address problem: Patient counseled regarding home safety, increase protein intake, outpatient follow-up with primary care physician for all age and risk factor appropriate screening tests. +30 minutes. History Interval history: 71 YO Male with Vascular Dementia with Behavioral Disturbance, Cerebral Atherosclerosis, HTN, CAD on DAPT, Hypothyroidism, Delusional Disorder admitted to [facility] psych unit for psychiatric stabilization. Consult placed by Dr. Jorge for medical management. Patient seen and evaluated in the recreation room. Patient resting calmly. Patient appears to be at baseline level of cognition and function. Hospitalist Physical - Constitutional Vitals: Temp Pulse Resp BP Pulse Ox 99 F 50 L 16 140/58 99 04/16/22 20:12 04/16/22 20:12 04/16/22 20:12 04/16/22 20:12 04/16/22 20:12 General appearance: Present: no acute distress - EENT Eyes: Present: PERRL ENT: hearing decreased - Neck Neck: Present: supple - Respiratory Respiratory effort: normal Respiratory: bilateral: diminished - Cardiovascular Rhythm: regular Heart Sounds: Present: S1 & S2 - Extremities Extremities: no ischemia Peripheral Pulses: within normal limits - Abdominal General gastrointestinal: soft, non-tender, non-distended - Integumentary Integumentary: Present: clear, dry - Psychiatric Psychiatric: cooperative - Neurologic Neurologic: CNII-XII intact Results - Labs CBC & Chem 7: 04/05/22 03:25 04/05/22 03:25 Labs: Laboratory Last Values WBC 8.5 K/mm3 (4.5-11.0) 04/05/22 03:25 RBC 4.02 M/mm3 (3.65-5.03) 04/05/22 03:25 Hgb 13.9 gm/dl (11.8-15.2) 04/05/22 03:25 Hct 38.9 % (35.5-45.6) 04/05/22 03:25 MCV 97 fl (84-94) H 04/05/22 03:25 MCH 35 pg (28-32) H 04/05/22 03:25 MCHC 36 % (32-34) H 04/05/22 03:25 RDW 13.1 % (13.2-15.2) L 04/05/22 03:25 Plt Count 267 K/mm3 (140-440) 04/05/22 03:25 Lymph % (Auto) 20.2 % (13.4-35.0) 04/05/22 03:25 [place] % (Auto) 12.9 % (0.0-7.3) H 04/05/22 03:25 Eos % (Auto) 3.1 % (0.0-4.3) 04/05/22 03:25 Baso % (Auto) 0.6 % (0.0-1.8) 04/05/22 03:25 Lymph # (Auto) 1.7 K/mm3 (1.2-5.4) 04/05/22 03:25 [place] # (Auto) 1.1 K/mm3 (0.0-0.8) H 04/05/22 03:25 Eos # (Auto) 0.3 K/mm3 (0.0-0.4) 04/05/22 03:25 Baso # (Auto) 0.1 K/mm3 (0.0-0.1) 04/05/22 03:25 Seg Neutrophils % 63.2 % (40.0-70.0) 04/05/22 03:25 Seg Neutrophils # 5.4 K/mm3 (1.8-7.7) 04/05/22 03:25 Sodium 136 mmol/L (137-145) L 04/05/22 03:25 Potassium 4.3 mmol/L (3.6-5.0) 04/05/22 03:25 Chloride 96.9 mmol/L (98-107) L 04/05/22 03:25 Carbon Dioxide 28 mmol/L (22-30) 04/05/22 03:25 Anion Gap 15 mmol/L 04/05/22 03:25 BUN 26 mg/dL (9-20) H 04/05/22 03:25 Creatinine 1.4 mg/dL (0.8-1.3) H 04/05/22 03:25 Estimated GFR 50 ml/min 04/05/22 03:25 BUN/Creatinine Ratio 19 % 04/05/22 03:25 Glucose 99 mg/dL (75-100) 04/05/22 03:25 POC Glucose 98 mg/dL (70-105) 04/05/22 03:54 Hemoglobin A1c 5.2 % (4-6) 04/05/22 03:25 Calcium 9.8 mg/dL (8.4-10.2) 04/05/22 03:25 Total Bilirubin 0.30 mg/dL (0.1-1.2) 04/05/22 03:25 AST 28 units/L (5-40) 04/05/22 03:25 ALT 25 units/L (7-56) 04/05/22 03:25 Alkaline Phosphatase 52 units/L (35-129) 04/05/22 03:25 Total Protein 6.7 g/dL (6.3-8.2) 04/05/22 03:25 Albumin 3.9 g/dL (3.9-5) 04/05/22 03:25 Albumin/Globulin Ratio 1.4 % 04/05/22 03:25 Triglycerides 62 mg/dL (2-149) 04/05/22 03:25 Cholesterol 98 mg/dL (50-199) 04/05/22 03:25 LDL Cholesterol Direct 49 mg/dL (50-130) L 04/05/22 03:25 HDL Cholesterol 39 mg/dL (40-59) L 04/05/22 03:25 Cholesterol/HDL Ratio 2.51 % 04/05/22 03:25 TSH 2.600 mlU/mL (0.270-4.200) 04/05/22 03:25 Ascencio/IV: Voiding Method Toilet Active Medications - Current Medications Current Medications: Generic Name Dose Route Start Last Admin Trade Name Freq PRN Reason Stop Dose Admin Acetaminophen 650 mg 04/08/22 21:13 Acetaminophen 325 Mg Tab PO Q6H PRN Pain, Mild (1-3) Aspirin 81 mg 04/13/22 22:00 04/15/22 21:26 Aspirin Ec 81 Mg Tab PO 81 mg QHS JOHNIE Administration Atorvastatin Calcium 10 mg 04/05/22 22:00 04/15/22 21:26 Atorvastatin 10 Mg Tab PO 10 mg QHS JOHNIE Administration Clopidogrel Bisulfate 75 mg 04/05/22 10:00 04/16/22 09:52 Clopidogrel 75 Mg Tab PO 37.5 mg QDAY [facility] Administration Divalproex Sodium 125 mg 04/06/22 12:00 04/16/22 09:[address] 125 Mg Tab PO Not Given BID [facility] Docusate Sodium 100 mg 04/09/22 10:00 04/16/22 09:52 Docusate Sodium 100 Mg Cap PO 100 mg BID [facility] Administration Ibuprofen 200 mg 04/05/22 22:00 04/15/22 21:27 Ibuprofen 200 Mg Tab PO 200 mg QHS [facility] Administration Levothyroxine Sodium 50 mcg 04/05/22 10:00 04/16/22 06:21 Levothyroxine 50 Mcg Tab PO 50 mcg DAILY@0600 [facility] Administration Losartan Potassium 50 mg 04/05/22 10:00 04/16/22 09:55 Losartan 50 Mg Tab PO Not Given QDAY [facility] Magnesium Hydroxide 30 ml 04/09/22 09:35 Magnesium Hydroxide (Mom) Oral Liqd Udc PO Q4H PRN Constipation Risperidone 0.5 mg 04/07/22 10:00 04/16/22 09:55 Risperidone 0.25 Mg Tab PO Not Given TID [facility] Valacyclovir HCl 500 mg 04/08/22 10:00 04/16/22 09:56 Valacyclovir 500 Mg Tab PO Not Given BID [facility] Nutrition/Malnutrition Assess - Dietary Evaluation Nutrition/Malnutrition Findings: Nutrition Notes Start: 04/13/22 18:02 Freq: Status: Active Protocol: Document 04/13/22 18:02 HEIDI (Rec: 04/13/22 18:15 HEIDI [id number]) Nutrition Notes Need for Assessment generated from: LOS Initial or Follow up Assessment Current Diagnosis Coronary Artery Disease, Hypertension,Hyperlipidemia Other Pertinent Diagnosis CHF, Hypothyroidism, Paranoia & Delusions. Current Diet Cardiac Diet (since B 04/07). Labs/Tests 04/13: Na 136, Cl 96.9, BUN 26 , Crea 1.4. Pertinent Medications 04/13: Levothyroxine, others nutritionally unremarkable. Height 6 ft 1 in Weight 86.183 kg [place] Body Weight (kg) 83.63 BMI 25.0 Intake Prior to Admission Good Weight change and time frame Pt states having loss some body weight [employer]. Weight Status Appropriate Subjective/Other Information RD consult for LOS assessment. Pt's PO intake of meals has been Good (100%) and well tolerated, according to ADL notes. Pt is on Room Air, O2 saturation @ 100%, according to Vital Signs notes. Percent of energy/protein needs met: Prescribed Cardiac Diet provides for energy/protein needs (2,230 Kcal/85 g) during LOS. Burn Absent Trauma Absent GI Symptoms None Food Allergy No Skin Integrity/Comment Assessment WNL. Current % PO Good (75-100%) Minimum of two criteria No Fluid Accumulation N/A Reduced Rn Traveling Strength N/A (non-severe) Protein-Calorie Malnutrition N\A #1 Nutrition Diagnosis No nutrition diagnosis at this time Is patient on ventilator? No Is Patient Ambulatory and/or Out of Bed Yes REE-([facility]-ambulatory/OOB) [ 2158.923 [id number]] Calculation Used for Recommendations [facility] Additional Notes Protein: 1-1.2 g/Kg ABW; 86- 103 g/day. Fluids: 1 ml/Kcal, or as per MD. Nutrition Intervention Change Diet Order: Continue Cardiac Diet. Revisit per MD consult or patient Sign Off request: Additional Comments Continue monitoring food tolerance, %PO intake of meals , and BM.
--- NOTE | 2022-04-16 20:30 | Progress Note ---
Assessment and Plan - Patient Problems (1) Delusional disorder Current Visit: Yes Status: Acute Plan to address problem: Continue medical management, supportive care, behavior change counseling (2) Vascular dementia with behavioral disturbance Current Visit: Yes Status: Acute Plan to address problem: Verbal prompting, verbal redirection, benzodiazepine therapy as clinically indicated. (3) Cerebral atherosclerosis Current Visit: Yes Status: Acute Plan to address problem: Risk factor reduction, antiplatelet therapy as clinically indicated. (4) Hypothyroidism Current Visit: Yes Status: Acute Plan to address problem: Continue Synthroid therapy, supportive care. (5) Hypertension Current Visit: Yes Status: Acute Qualifiers: Hypertension type: primary hypertension Qualified Code(s): I10 - Essential (primary) hypertension Plan to address problem: Monitor blood pressure every shift, continue medical management. (6) Advance care planning Current Visit: Yes Status: Acute Plan to address problem: Disease education done, care plan discussed, diagnoses discussed, prognosis discussed, patient is full code. Patient acknowledges understanding and agreement with care plan, +30 minutes. (7) Preventative health care Current Visit: Yes Status: Acute Plan to address problem: Patient counseled regarding home safety, increase protein intake, outpatient follow-up with primary care physician for all age and risk factor appropriate screening tests. +30 minutes. History Interval history: 71 YO Male with Vascular Dementia with Behavioral Disturbance, Cerebral Atherosclerosis, HTN, CAD on DAPT, Hypothyroidism, Delusional Disorder admitted to [facility] psych unit for psychiatric stabilization. Consult placed by Dr. Jorge for medical management. Patient seen and evaluated in the recreation room. Patient resting calmly. Patient appears to be at baseline level of cognition and function. Hospitalist Physical - Constitutional Vitals: Temp Pulse Resp BP Pulse Ox 99 F 50 L 16 140/58 99 04/16/22 20:12 04/16/22 20:12 04/16/22 20:12 04/16/22 20:12 04/16/22 20:12 General appearance: Present: no acute distress - EENT Eyes: Present: PERRL ENT: hearing intact - Neck Neck: Present: supple - Respiratory Respiratory effort: normal Respiratory: bilateral: CTA - Cardiovascular Rhythm: regular Heart Sounds: Present: S1 & S2 - Extremities Extremities: no ischemia Peripheral Pulses: within normal limits - Abdominal General gastrointestinal: soft, non-tender, non-distended - Integumentary Integumentary: Present: clear, dry - Psychiatric Psychiatric: cooperative Results - Labs CBC & Chem 7: 04/05/22 03:25 04/05/22 03:25 Labs: Laboratory Last Values WBC 8.5 K/mm3 (4.5-11.0) 04/05/22 03:25 RBC 4.02 M/mm3 (3.65-5.03) 04/05/22 03:25 Hgb 13.9 gm/dl (11.8-15.2) 04/05/22 03:25 Hct 38.9 % (35.5-45.6) 04/05/22 03:25 MCV 97 fl (84-94) H 04/05/22 03:25 MCH 35 pg (28-32) H 04/05/22 03:25 MCHC 36 % (32-34) H 04/05/22 03:25 RDW 13.1 % (13.2-15.2) L 04/05/22 03:25 Plt Count 267 K/mm3 (140-440) 04/05/22 03:25 Lymph % (Auto) 20.2 % (13.4-35.0) 04/05/22 03:25 [place] % (Auto) 12.9 % (0.0-7.3) H 04/05/22 03:25 Eos % (Auto) 3.1 % (0.0-4.3) 04/05/22 03:25 Baso % (Auto) 0.6 % (0.0-1.8) 04/05/22 03:25 Lymph # (Auto) 1.7 K/mm3 (1.2-5.4) 04/05/22 03:25 [place] # (Auto) 1.1 K/mm3 (0.0-0.8) H 04/05/22 03:25 Eos # (Auto) 0.3 K/mm3 (0.0-0.4) 04/05/22 03:25 Baso # (Auto) 0.1 K/mm3 (0.0-0.1) 04/05/22 03:25 Seg Neutrophils % 63.2 % (40.0-70.0) 04/05/22 03:25 Seg Neutrophils # 5.4 K/mm3 (1.8-7.7) 04/05/22 03:25 Sodium 136 mmol/L (137-145) L 04/05/22 03:25 Potassium 4.3 mmol/L (3.6-5.0) 04/05/22 03:25 Chloride 96.9 mmol/L (98-107) L 04/05/22 03:25 Carbon Dioxide 28 mmol/L (22-30) 04/05/22 03:25 Anion Gap 15 mmol/L 04/05/22 03:25 BUN 26 mg/dL (9-20) H 04/05/22 03:25 Creatinine 1.4 mg/dL (0.8-1.3) H 04/05/22 03:25 Estimated GFR 50 ml/min 04/05/22 03:25 BUN/Creatinine Ratio 19 % 04/05/22 03:25 Glucose 99 mg/dL (75-100) 04/05/22 03:25 POC Glucose 98 mg/dL (70-105) 04/05/22 03:54 Hemoglobin A1c 5.2 % (4-6) 04/05/22 03:25 Calcium 9.8 mg/dL (8.4-10.2) 04/05/22 03:25 Total Bilirubin 0.30 mg/dL (0.1-1.2) 04/05/22 03:25 AST 28 units/L (5-40) 04/05/22 03:25 ALT 25 units/L (7-56) 04/05/22 03:25 Alkaline Phosphatase 52 units/L (35-129) 04/05/22 03:25 Total Protein 6.7 g/dL (6.3-8.2) 04/05/22 03:25 Albumin 3.9 g/dL (3.9-5) 04/05/22 03:25 Albumin/Globulin Ratio 1.4 % 04/05/22 03:25 Triglycerides 62 mg/dL (2-149) 04/05/22 03:25 Cholesterol 98 mg/dL (50-199) 04/05/22 03:25 LDL Cholesterol Direct 49 mg/dL (50-130) L 04/05/22 03:25 HDL Cholesterol 39 mg/dL (40-59) L 04/05/22 03:25 Cholesterol/HDL Ratio 2.51 % 04/05/22 03:25 TSH 2.600 mlU/mL (0.270-4.200) 04/05/22 03:25 Ascencio/IV: Voiding Method Toilet Active Medications - Current Medications Current Medications: Generic Name Dose Route Start Last Admin Trade Name Freq PRN Reason Stop Dose Admin Acetaminophen 650 mg 04/08/22 21:13 Acetaminophen 325 Mg Tab PO Q6H PRN Pain, Mild (1-3) Aspirin 81 mg 04/13/22 22:00 04/15/22 21:26 Aspirin Ec 81 Mg Tab PO 81 mg QHS JOHNIE Administration Atorvastatin Calcium 10 mg 04/05/22 22:00 04/15/22 21:26 Atorvastatin 10 Mg Tab PO 10 mg QHS JOHNIE Administration Clopidogrel Bisulfate 75 mg 04/05/22 10:00 04/16/22 09:52 Clopidogrel 75 Mg Tab PO 37.5 mg QDAY [facility] Administration Divalproex Sodium 125 mg 04/06/22 12:00 04/16/22 09:[address] 125 Mg Tab PO Not Given BID [facility] Docusate Sodium 100 mg 04/09/22 10:00 04/16/22 09:52 Docusate Sodium 100 Mg Cap PO 100 mg BID [facility] Administration Ibuprofen 200 mg 04/05/22 22:00 04/15/22 21:27 Ibuprofen 200 Mg Tab PO 200 mg QHS [facility] Administration Levothyroxine Sodium 50 mcg 04/05/22 10:00 04/16/22 06:21 Levothyroxine 50 Mcg Tab PO 50 mcg DAILY@0600 [facility] Administration Losartan Potassium 50 mg 04/05/22 10:00 04/16/22 09:55 Losartan 50 Mg Tab PO Not Given QDAY [facility] Magnesium Hydroxide 30 ml 04/09/22 09:35 Magnesium Hydroxide (Mom) Oral Liqd Udc PO Q4H PRN Constipation Risperidone 0.5 mg 04/07/22 10:00 04/16/22 09:55 Risperidone 0.25 Mg Tab PO Not Given TID [facility] Valacyclovir HCl 500 mg 04/08/22 10:00 04/16/22 09:56 Valacyclovir 500 Mg Tab PO Not Given BID [facility] Nutrition/Malnutrition Assess - Dietary Evaluation Nutrition/Malnutrition Findings: Nutrition Notes Start: 04/13/22 18:02 Freq: Status: Active Protocol: Document 04/13/22 18:02 HEIDI (Rec: 04/13/22 18:15 HEIDI [id number]) Nutrition Notes Need for Assessment generated from: LOS Initial or Follow up Assessment Current Diagnosis Coronary Artery Disease, Hypertension,Hyperlipidemia Other Pertinent Diagnosis CHF, Hypothyroidism, Paranoia & Delusions. Current Diet Cardiac Diet (since B 04/07). Labs/Tests 04/13: Na 136, Cl 96.9, BUN 26 , Crea 1.4. Pertinent Medications 04/13: Levothyroxine, others nutritionally unremarkable. Height 6 ft 1 in Weight 86.183 kg [place] Body Weight (kg) 83.63 BMI 25.0 Intake Prior to Admission Good Weight change and time frame Pt states having loss some body weight [employer]. Weight Status Appropriate Subjective/Other Information RD consult for LOS assessment. Pt's PO intake of meals has been Good (100%) and well tolerated, according to ADL notes. Pt is on Room Air, O2 saturation @ 100%, according to Vital Signs notes. Percent of energy/protein needs met: Prescribed Cardiac Diet provides for energy/protein needs (2,230 Kcal/85 g) during LOS. Burn Absent Trauma Absent GI Symptoms None Food Allergy No Skin Integrity/Comment Assessment WNL. Current % PO Good (75-100%) Minimum of two criteria No Fluid Accumulation N/A Reduced Stamp Maker Strength N/A (non-severe) Protein-Calorie Malnutrition N\A #1 Nutrition Diagnosis No nutrition diagnosis at this time Is patient on ventilator? No Is Patient Ambulatory and/or Out of Bed Yes REE-([facility]-ambulatory/OOB) [ 2158.923 NUTR.[id number]] Calculation Used for Recommendations [facility] Additional Notes Protein: 1-1.2 g/Kg ABW; 86- 103 g/day. Fluids: 1 ml/Kcal, or as per MD. Nutrition Intervention Change Diet Order: Continue Cardiac Diet. Revisit per MD consult or patient Sign Off request: Additional Comments Continue monitoring food tolerance, %PO intake of meals , and BM.
--- NOTE | 2022-04-16 20:33 | Progress Note ---
Assessment and Plan - Patient Problems (1) Delusional disorder Current Visit: Yes Status: Acute Plan to address problem: Continue medical management, supportive care, behavior change counseling (2) Vascular dementia with behavioral disturbance Current Visit: Yes Status: Acute Plan to address problem: Verbal prompting, verbal redirection, benzodiazepine therapy as clinically indicated. (3) Cerebral atherosclerosis Current Visit: Yes Status: Acute Plan to address problem: Risk factor reduction, antiplatelet therapy as clinically indicated. (4) Hypothyroidism Current Visit: Yes Status: Acute Plan to address problem: Continue Synthroid therapy, supportive care. (5) Hypertension Current Visit: Yes Status: Acute Qualifiers: Hypertension type: primary hypertension Qualified Code(s): I10 - Essential (primary) hypertension Plan to address problem: Monitor blood pressure every shift, continue medical management. (6) Advance care planning Current Visit: Yes Status: Acute Plan to address problem: Disease education done, care plan discussed, diagnoses discussed, prognosis discussed, patient is full code. Patient acknowledges understanding and agreement with care plan, +30 minutes. (7) Preventative health care Current Visit: Yes Status: Acute Plan to address problem: Patient counseled regarding home safety, increase protein intake, outpatient follow-up with primary care physician for all age and risk factor appropriate screening tests. +30 minutes. History Interval history: 71 YO Male with Vascular Dementia with Behavioral Disturbance, Cerebral Atherosclerosis, HTN, CAD on DAPT, Hypothyroidism, Delusional Disorder admitted to [facility] psych unit for psychiatric stabilization. Consult placed by Dr. Jorge for medical management. Patient seen and evaluated in the recreation room. Patient resting calmly. Patient appears to be at baseline level of cognition and function. Hospitalist Physical - Constitutional Vitals: Temp Pulse Resp BP Pulse Ox 99 F 50 L 16 140/58 99 04/16/22 20:12 04/16/22 20:12 04/16/22 20:12 04/16/22 20:12 04/16/22 20:12 General appearance: Present: no acute distress - EENT Eyes: Present: PERRL ENT: hearing decreased - Neck Neck: Present: supple - Respiratory Respiratory effort: normal Respiratory: bilateral: diminished - Cardiovascular Rhythm: regular Heart Sounds: Present: S1 & S2 - Extremities Extremities: no ischemia Peripheral Pulses: within normal limits - Abdominal General gastrointestinal: soft, non-tender, non-distended - Integumentary Integumentary: Present: clear, dry - Psychiatric Psychiatric: cooperative - Neurologic Neurologic: CNII-XII intact Results - Labs CBC & Chem 7: 04/05/22 03:25 04/05/22 03:25 Labs: Laboratory Last Values WBC 8.5 K/mm3 (4.5-11.0) 04/05/22 03:25 RBC 4.02 M/mm3 (3.65-5.03) 04/05/22 03:25 Hgb 13.9 gm/dl (11.8-15.2) 04/05/22 03:25 Hct 38.9 % (35.5-45.6) 04/05/22 03:25 MCV 97 fl (84-94) H 04/05/22 03:25 MCH 35 pg (28-32) H 04/05/22 03:25 MCHC 36 % (32-34) H 04/05/22 03:25 RDW 13.1 % (13.2-15.2) L 04/05/22 03:25 Plt Count 267 K/mm3 (140-440) 04/05/22 03:25 Lymph % (Auto) 20.2 % (13.4-35.0) 04/05/22 03:25 [place] % (Auto) 12.9 % (0.0-7.3) H 04/05/22 03:25 Eos % (Auto) 3.1 % (0.0-4.3) 04/05/22 03:25 Baso % (Auto) 0.6 % (0.0-1.8) 04/05/22 03:25 Lymph # (Auto) 1.7 K/mm3 (1.2-5.4) 04/05/22 03:25 [place] # (Auto) 1.1 K/mm3 (0.0-0.8) H 04/05/22 03:25 Eos # (Auto) 0.3 K/mm3 (0.0-0.4) 04/05/22 03:25 Baso # (Auto) 0.1 K/mm3 (0.0-0.1) 04/05/22 03:25 Seg Neutrophils % 63.2 % (40.0-70.0) 04/05/22 03:25 Seg Neutrophils # 5.4 K/mm3 (1.8-7.7) 04/05/22 03:25 Sodium 136 mmol/L (137-145) L 04/05/22 03:25 Potassium 4.3 mmol/L (3.6-5.0) 04/05/22 03:25 Chloride 96.9 mmol/L (98-107) L 04/05/22 03:25 Carbon Dioxide 28 mmol/L (22-30) 04/05/22 03:25 Anion Gap 15 mmol/L 04/05/22 03:25 BUN 26 mg/dL (9-20) H 04/05/22 03:25 Creatinine 1.4 mg/dL (0.8-1.3) H 04/05/22 03:25 Estimated GFR 50 ml/min 04/05/22 03:25 BUN/Creatinine Ratio 19 % 04/05/22 03:25 Glucose 99 mg/dL (75-100) 04/05/22 03:25 POC Glucose 98 mg/dL (70-105) 04/05/22 03:54 Hemoglobin A1c 5.2 % (4-6) 04/05/22 03:25 Calcium 9.8 mg/dL (8.4-10.2) 04/05/22 03:25 Total Bilirubin 0.30 mg/dL (0.1-1.2) 04/05/22 03:25 AST 28 units/L (5-40) 04/05/22 03:25 ALT 25 units/L (7-56) 04/05/22 03:25 Alkaline Phosphatase 52 units/L (35-129) 04/05/22 03:25 Total Protein 6.7 g/dL (6.3-8.2) 04/05/22 03:25 Albumin 3.9 g/dL (3.9-5) 04/05/22 03:25 Albumin/Globulin Ratio 1.4 % 04/05/22 03:25 Triglycerides 62 mg/dL (2-149) 04/05/22 03:25 Cholesterol 98 mg/dL (50-199) 04/05/22 03:25 LDL Cholesterol Direct 49 mg/dL (50-130) L 04/05/22 03:25 HDL Cholesterol 39 mg/dL (40-59) L 04/05/22 03:25 Cholesterol/HDL Ratio 2.51 % 04/05/22 03:25 TSH 2.600 mlU/mL (0.270-4.200) 04/05/22 03:25 Ascencio/IV: Voiding Method Toilet Active Medications - Current Medications Current Medications: Generic Name Dose Route Start Last Admin Trade Name Freq PRN Reason Stop Dose Admin Acetaminophen 650 mg 04/08/22 21:13 Acetaminophen 325 Mg Tab PO Q6H PRN Pain, Mild (1-3) Aspirin 81 mg 04/13/22 22:00 04/15/22 21:26 Aspirin Ec 81 Mg Tab PO 81 mg QHS JOHNIE Administration Atorvastatin Calcium 10 mg 04/05/22 22:00 04/15/22 21:26 Atorvastatin 10 Mg Tab PO 10 mg QHS JOHNIE Administration Clopidogrel Bisulfate 75 mg 04/05/22 10:00 04/16/22 09:52 Clopidogrel 75 Mg Tab PO 37.5 mg QDAY [facility] OF [facility] Administration Divalproex Sodium 125 mg 04/06/22 12:00 04/16/22 09:[address] 125 Mg Tab PO Not Given BID [facility] Docusate Sodium 100 mg 04/09/22 10:00 04/16/22 09:52 Docusate Sodium 100 Mg Cap PO 100 mg BID [facility] Administration Ibuprofen 200 mg 04/05/22 22:00 04/15/22 21:27 Ibuprofen 200 Mg Tab PO 200 mg QHS [facility] Administration Levothyroxine Sodium 50 mcg 04/05/22 10:00 04/16/22 06:21 Levothyroxine 50 Mcg Tab PO 50 mcg DAILY@0600 [facility] Administration Losartan Potassium 50 mg 04/05/22 10:00 04/16/22 09:55 Losartan 50 Mg Tab PO Not Given QDAY [facility] Magnesium Hydroxide 30 ml 04/09/22 09:35 Magnesium Hydroxide (Mom) Oral Liqd Udc PO Q4H PRN Constipation Risperidone 0.5 mg 04/07/22 10:00 04/16/22 09:55 Risperidone 0.25 Mg Tab PO Not Given TID [facility] Valacyclovir HCl 500 mg 04/08/22 10:00 04/16/22 09:56 Valacyclovir 500 Mg Tab PO Not Given BID [facility] Nutrition/Malnutrition Assess - Dietary Evaluation Nutrition/Malnutrition Findings: Nutrition Notes Start: 04/13/22 18:02 Freq: Status: Active Protocol: Document 04/13/22 18:02 HEIDI (Rec: 04/13/22 18:15 HEIDI [id number]) Nutrition Notes Need for Assessment generated from: LOS Initial or Follow up Assessment Current Diagnosis Coronary Artery Disease, Hypertension,Hyperlipidemia Other Pertinent Diagnosis CHF, Hypothyroidism, Paranoia & Delusions. Current Diet Cardiac Diet (since B 04/07). Labs/Tests 04/13: Na 136, Cl 96.9, BUN 26 , Crea 1.4. Pertinent Medications 04/13: Levothyroxine, others nutritionally unremarkable. Height 6 ft 1 in Weight 86.183 kg [place] Body Weight (kg) 83.63 BMI 25.0 Intake Prior to Admission Good Weight change and time frame Pt states having loss some body weight [employer]. Weight Status Appropriate Subjective/Other Information RD consult for LOS assessment. Pt's PO intake of meals has been Good (100%) and well tolerated, according to ADL notes. Pt is on Room Air, O2 saturation @ 100%, according to Vital Signs notes. Percent of energy/protein needs met: Prescribed Cardiac Diet provides for energy/protein needs (2,230 Kcal/85 g) during LOS. Burn Absent Trauma Absent GI Symptoms None Food Allergy No Skin Integrity/Comment Assessment WNL. Current % PO Good (75-100%) Minimum of two criteria No Fluid Accumulation N/A Reduced Labor Relations Representative Strength N/A (non-severe) Protein-Calorie Malnutrition N\A #1 Nutrition Diagnosis No nutrition diagnosis at this time Is patient on ventilator? No Is Patient Ambulatory and/or Out of Bed Yes REE-([facility]-ambulatory/OOB) [ 2158.923 NUTR.[id number]] Calculation Used for Recommendations [facility] Additional Notes Protein: 1-1.2 g/Kg ABW; 86- 103 g/day. Fluids: 1 ml/Kcal, or as per MD. Nutrition Intervention Change Diet Order: Continue Cardiac Diet. Revisit per MD consult or patient Sign Off request: Additional Comments Continue monitoring food tolerance, %PO intake of meals , and BM.
--- NOTE | 2022-04-16 20:34 | Progress Note ---
Assessment and Plan - Patient Problems (1) Delusional disorder Current Visit: Yes Status: Acute Plan to address problem: Continue medical management, supportive care, behavior change counseling (2) Vascular dementia with behavioral disturbance Current Visit: Yes Status: Acute Plan to address problem: Verbal prompting, verbal redirection, benzodiazepine therapy as clinically indicated. (3) Cerebral atherosclerosis Current Visit: Yes Status: Acute Plan to address problem: Risk factor reduction, antiplatelet therapy as clinically indicated. (4) Hypothyroidism Current Visit: Yes Status: Acute Plan to address problem: Continue Synthroid therapy, supportive care. (5) Hypertension Current Visit: Yes Status: Acute Qualifiers: Hypertension type: primary hypertension Qualified Code(s): I10 - Essential (primary) hypertension Plan to address problem: Monitor blood pressure every shift, continue medical management. (6) Advance care planning Current Visit: Yes Status: Acute Plan to address problem: Disease education done, care plan discussed, diagnoses discussed, prognosis discussed, patient is full code. Patient acknowledges understanding and agreement with care plan, +30 minutes. (7) Preventative health care Current Visit: Yes Status: Acute Plan to address problem: Patient counseled regarding home safety, increase protein intake, outpatient follow-up with primary care physician for all age and risk factor appropriate screening tests. +30 minutes. History Interval history: 71 YO Male with Vascular Dementia with Behavioral Disturbance, Cerebral Atherosclerosis, HTN, CAD on DAPT, Hypothyroidism, Delusional Disorder admitted to [facility] psych unit for psychiatric stabilization. Consult placed by Dr. Jorge for medical management. Patient seen and evaluated in the recreation room. Patient resting calmly. Patient appears to be at baseline level of cognition and function. Hospitalist Physical - Constitutional Vitals: Temp Pulse Resp BP Pulse Ox 99 F 50 L 16 140/58 99 04/16/22 20:12 04/16/22 20:12 04/16/22 20:12 04/16/22 20:12 04/16/22 20:12 General appearance: Present: no acute distress - EENT Eyes: Present: PERRL ENT: hearing intact - Neck Neck: Present: supple - Respiratory Respiratory effort: normal Respiratory: bilateral: diminished - Cardiovascular Rhythm: regular Heart Sounds: Present: S1 & S2 - Extremities Extremities: no ischemia Peripheral Pulses: within normal limits - Abdominal General gastrointestinal: soft, non-tender, non-distended - Integumentary Integumentary: Present: clear, dry - Psychiatric Psychiatric: cooperative - Neurologic Neurologic: CNII-XII intact Results - Labs CBC & Chem 7: 04/05/22 03:25 04/05/22 03:25 Labs: Laboratory Last Values WBC 8.5 K/mm3 (4.5-11.0) 04/05/22 03:25 RBC 4.02 M/mm3 (3.65-5.03) 04/05/22 03:25 Hgb 13.9 gm/dl (11.8-15.2) 04/05/22 03:25 Hct 38.9 % (35.5-45.6) 04/05/22 03:25 MCV 97 fl (84-94) H 04/05/22 03:25 MCH 35 pg (28-32) H 04/05/22 03:25 MCHC 36 % (32-34) H 04/05/22 03:25 RDW 13.1 % (13.2-15.2) L 04/05/22 03:25 Plt Count 267 K/mm3 (140-440) 04/05/22 03:25 Lymph % (Auto) 20.2 % (13.4-35.0) 04/05/22 03:25 [place] % (Auto) 12.9 % (0.0-7.3) H 04/05/22 03:25 Eos % (Auto) 3.1 % (0.0-4.3) 04/05/22 03:25 Baso % (Auto) 0.6 % (0.0-1.8) 04/05/22 03:25 Lymph # (Auto) 1.7 K/mm3 (1.2-5.4) 04/05/22 03:25 [place] # (Auto) 1.1 K/mm3 (0.0-0.8) H 04/05/22 03:25 Eos # (Auto) 0.3 K/mm3 (0.0-0.4) 04/05/22 03:25 Baso # (Auto) 0.1 K/mm3 (0.0-0.1) 04/05/22 03:25 Seg Neutrophils % 63.2 % (40.0-70.0) 04/05/22 03:25 Seg Neutrophils # 5.4 K/mm3 (1.8-7.7) 04/05/22 03:25 Sodium 136 mmol/L (137-145) L 04/05/22 03:25 Potassium 4.3 mmol/L (3.6-5.0) 04/05/22 03:25 Chloride 96.9 mmol/L (98-107) L 04/05/22 03:25 Carbon Dioxide 28 mmol/L (22-30) 04/05/22 03:25 Anion Gap 15 mmol/L 04/05/22 03:25 BUN 26 mg/dL (9-20) H 04/05/22 03:25 Creatinine 1.4 mg/dL (0.8-1.3) H 04/05/22 03:25 Estimated GFR 50 ml/min 04/05/22 03:25 BUN/Creatinine Ratio 19 % 04/05/22 03:25 Glucose 99 mg/dL (75-100) 04/05/22 03:25 POC Glucose 98 mg/dL (70-105) 04/05/22 03:54 Hemoglobin A1c 5.2 % (4-6) 04/05/22 03:25 Calcium 9.8 mg/dL (8.4-10.2) 04/05/22 03:25 Total Bilirubin 0.30 mg/dL (0.1-1.2) 04/05/22 03:25 AST 28 units/L (5-40) 04/05/22 03:25 ALT 25 units/L (7-56) 04/05/22 03:25 Alkaline Phosphatase 52 units/L (35-129) 04/05/22 03:25 Total Protein 6.7 g/dL (6.3-8.2) 04/05/22 03:25 Albumin 3.9 g/dL (3.9-5) 04/05/22 03:25 Albumin/Globulin Ratio 1.4 % 04/05/22 03:25 Triglycerides 62 mg/dL (2-149) 04/05/22 03:25 Cholesterol 98 mg/dL (50-199) 04/05/22 03:25 LDL Cholesterol Direct 49 mg/dL (50-130) L 04/05/22 03:25 HDL Cholesterol 39 mg/dL (40-59) L 04/05/22 03:25 Cholesterol/HDL Ratio 2.51 % 04/05/22 03:25 TSH 2.600 mlU/mL (0.270-4.200) 04/05/22 03:25 Ascencio/IV: Voiding Method Toilet Active Medications - Current Medications Current Medications: Generic Name Dose Route Start Last Admin Trade Name Freq PRN Reason Stop Dose Admin Acetaminophen 650 mg 04/08/22 21:13 Acetaminophen 325 Mg Tab PO Q6H PRN Pain, Mild (1-3) Aspirin 81 mg 04/13/22 22:00 04/15/22 21:26 Aspirin Ec 81 Mg Tab PO 81 mg QHS JOHNIE Administration Atorvastatin Calcium 10 mg 04/05/22 22:00 04/15/22 21:26 Atorvastatin 10 Mg Tab PO 10 mg QHS JOHNIE Administration Clopidogrel Bisulfate 75 mg 04/05/22 10:00 04/16/22 09:52 Clopidogrel 75 Mg Tab PO 37.5 mg QDAY [facility] Administration Divalproex Sodium 125 mg 04/06/22 12:00 04/16/22 09:[address] 125 Mg Tab PO Not Given BID [facility] Docusate Sodium 100 mg 04/09/22 10:00 04/16/22 09:52 Docusate Sodium 100 Mg Cap PO 100 mg BID [facility] Administration Ibuprofen 200 mg 04/05/22 22:00 04/15/22 21:27 Ibuprofen 200 Mg Tab PO 200 mg QHS [facility] Administration Levothyroxine Sodium 50 mcg 04/05/22 10:00 04/16/22 06:21 Levothyroxine 50 Mcg Tab PO 50 mcg DAILY@0600 [facility] Administration Losartan Potassium 50 mg 04/05/22 10:00 04/16/22 09:55 Losartan 50 Mg Tab PO Not Given QDAY [facility] Magnesium Hydroxide 30 ml 04/09/22 09:35 Magnesium Hydroxide (Mom) Oral Liqd Udc PO Q4H PRN Constipation Risperidone 0.5 mg 04/07/22 10:00 04/16/22 09:55 Risperidone 0.25 Mg Tab PO Not Given TID [facility] Valacyclovir HCl 500 mg 04/08/22 10:00 04/16/22 09:56 Valacyclovir 500 Mg Tab PO Not Given BID [facility] Nutrition/Malnutrition Assess - Dietary Evaluation Nutrition/Malnutrition Findings: Nutrition Notes Start: 04/13/22 18:02 Freq: Status: Active Protocol: Document 04/13/22 18:02 HEIDI (Rec: 04/13/22 18:15 HEIDI [id number]) Nutrition Notes Need for Assessment generated from: LOS Initial or Follow up Assessment Current Diagnosis Coronary Artery Disease, Hypertension,Hyperlipidemia Other Pertinent Diagnosis CHF, Hypothyroidism, Paranoia & Delusions. Current Diet Cardiac Diet (since B 04/07). Labs/Tests 04/13: Na 136, Cl 96.9, BUN 26 , Crea 1.4. Pertinent Medications 04/13: Levothyroxine, others nutritionally unremarkable. Height 6 ft 1 in Weight 86.183 kg [place] Body Weight (kg) 83.63 BMI 25.0 Intake Prior to Admission Good Weight change and time frame Pt states having loss some body weight [employer]. Weight Status Appropriate Subjective/Other Information RD consult for LOS assessment. Pt's PO intake of meals has been Good (100%) and well tolerated, according to ADL notes. Pt is on Room Air, O2 saturation @ 100%, according to Vital Signs notes. Percent of energy/protein needs met: Prescribed Cardiac Diet provides for energy/protein needs (2,230 Kcal/85 g) during LOS. Burn Absent Trauma Absent GI Symptoms None Food Allergy No Skin Integrity/Comment Assessment WNL. Current % PO Good (75-100%) Minimum of two criteria No Fluid Accumulation N/A Reduced Machine Setter And Repairer Strength N/A (non-severe) Protein-Calorie Malnutrition N\A #1 Nutrition Diagnosis No nutrition diagnosis at this time Is patient on ventilator? No Is Patient Ambulatory and/or Out of Bed Yes REE-([facility]-ambulatory/OOB) [ 2158.923 NUTR.[email or web address]] Calculation Used for Recommendations [facility] Additional Notes Protein: 1-1.2 g/Kg ABW; 86- 103 g/day. Fluids: 1 ml/Kcal, or as per MD. Nutrition Intervention Change Diet Order: Continue Cardiac Diet. Revisit per MD consult or patient Sign Off request: Additional Comments Continue monitoring food tolerance, %PO intake of meals , and BM.
--- NOTE | 2022-04-16 20:35 | Progress Note ---
Assessment and Plan - Patient Problems (1) Delusional disorder Current Visit: Yes Status: Acute Plan to address problem: Continue medical management, supportive care, behavior change counseling (2) Vascular dementia with behavioral disturbance Current Visit: Yes Status: Acute Plan to address problem: Verbal prompting, verbal redirection, benzodiazepine therapy as clinically indicated. (3) Cerebral atherosclerosis Current Visit: Yes Status: Acute Plan to address problem: Risk factor reduction, antiplatelet therapy as clinically indicated. (4) Hypothyroidism Current Visit: Yes Status: Acute Plan to address problem: Continue Synthroid therapy, supportive care. (5) Hypertension Current Visit: Yes Status: Acute Qualifiers: Hypertension type: primary hypertension Qualified Code(s): I10 - Essential (primary) hypertension Plan to address problem: Monitor blood pressure every shift, continue medical management. (6) Advance care planning Current Visit: Yes Status: Acute Plan to address problem: Disease education done, care plan discussed, diagnoses discussed, prognosis discussed, patient is full code. Patient acknowledges understanding and agreement with care plan, +30 minutes. (7) Preventative health care Current Visit: Yes Status: Acute Plan to address problem: Patient counseled regarding home safety, increase protein intake, outpatient follow-up with primary care physician for all age and risk factor appropriate screening tests. +30 minutes. History Interval history: 71 YO Male with Vascular Dementia with Behavioral Disturbance, Cerebral Atherosclerosis, HTN, CAD on DAPT, Hypothyroidism, Delusional Disorder admitted to [facility] psych unit for psychiatric stabilization. Consult placed by Dr. Jorge for medical management. Patient seen and evaluated in the recreation room. Patient resting calmly. Patient appears to be at baseline level of cognition and function. Hospitalist Physical - Constitutional Vitals: Temp Pulse Resp BP Pulse Ox 99 F 50 L 16 140/58 99 04/16/22 20:12 04/16/22 20:12 04/16/22 20:12 04/16/22 20:12 04/16/22 20:12 General appearance: Present: no acute distress - EENT Eyes: Present: PERRL ENT: hearing decreased - Neck Neck: Present: supple - Respiratory Respiratory effort: normal Respiratory: bilateral: diminished - Cardiovascular Rhythm: regular Heart Sounds: Present: S1 & S2 - Extremities Extremities: no ischemia Peripheral Pulses: within normal limits - Abdominal General gastrointestinal: soft, non-tender, non-distended - Integumentary Integumentary: Present: clear, dry - Psychiatric Psychiatric: cooperative - Neurologic Neurologic: CNII-XII intact Results - Labs CBC & Chem 7: 04/05/22 03:25 04/05/22 03:25 Labs: Laboratory Last Values WBC 8.5 K/mm3 (4.5-11.0) 04/05/22 03:25 RBC 4.02 M/mm3 (3.65-5.03) 04/05/22 03:25 Hgb 13.9 gm/dl (11.8-15.2) 04/05/22 03:25 Hct 38.9 % (35.5-45.6) 04/05/22 03:25 MCV 97 fl (84-94) H 04/05/22 03:25 MCH 35 pg (28-32) H 04/05/22 03:25 MCHC 36 % (32-34) H 04/05/22 03:25 RDW 13.1 % (13.2-15.2) L 04/05/22 03:25 Plt Count 267 K/mm3 (140-440) 04/05/22 03:25 Lymph % (Auto) 20.2 % (13.4-35.0) 04/05/22 03:25 [place] % (Auto) 12.9 % (0.0-7.3) H 04/05/22 03:25 Eos % (Auto) 3.1 % (0.0-4.3) 04/05/22 03:25 Baso % (Auto) 0.6 % (0.0-1.8) 04/05/22 03:25 Lymph # (Auto) 1.7 K/mm3 (1.2-5.4) 04/05/22 03:25 [place] # (Auto) 1.1 K/mm3 (0.0-0.8) H 04/05/22 03:25 Eos # (Auto) 0.3 K/mm3 (0.0-0.4) 04/05/22 03:25 Baso # (Auto) 0.1 K/mm3 (0.0-0.1) 04/05/22 03:25 Seg Neutrophils % 63.2 % (40.0-70.0) 04/05/22 03:25 Seg Neutrophils # 5.4 K/mm3 (1.8-7.7) 04/05/22 03:25 Sodium 136 mmol/L (137-145) L 04/05/22 03:25 Potassium 4.3 mmol/L (3.6-5.0) 04/05/22 03:25 Chloride 96.9 mmol/L (98-107) L 04/05/22 03:25 Carbon Dioxide 28 mmol/L (22-30) 04/05/22 03:25 Anion Gap 15 mmol/L 04/05/22 03:25 BUN 26 mg/dL (9-20) H 04/05/22 03:25 Creatinine 1.4 mg/dL (0.8-1.3) H 04/05/22 03:25 Estimated GFR 50 ml/min 04/05/22 03:25 BUN/Creatinine Ratio 19 % 04/05/22 03:25 Glucose 99 mg/dL (75-100) 04/05/22 03:25 POC Glucose 98 mg/dL (70-105) 04/05/22 03:54 Hemoglobin A1c 5.2 % (4-6) 04/05/22 03:25 Calcium 9.8 mg/dL (8.4-10.2) 04/05/22 03:25 Total Bilirubin 0.30 mg/dL (0.1-1.2) 04/05/22 03:25 AST 28 units/L (5-40) 04/05/22 03:25 ALT 25 units/L (7-56) 04/05/22 03:25 Alkaline Phosphatase 52 units/L (35-129) 04/05/22 03:25 Total Protein 6.7 g/dL (6.3-8.2) 04/05/22 03:25 Albumin 3.9 g/dL (3.9-5) 04/05/22 03:25 Albumin/Globulin Ratio 1.4 % 04/05/22 03:25 Triglycerides 62 mg/dL (2-149) 04/05/22 03:25 Cholesterol 98 mg/dL (50-199) 04/05/22 03:25 LDL Cholesterol Direct 49 mg/dL (50-130) L 04/05/22 03:25 HDL Cholesterol 39 mg/dL (40-59) L 04/05/22 03:25 Cholesterol/HDL Ratio 2.51 % 04/05/22 03:25 TSH 2.600 mlU/mL (0.270-4.200) 04/05/22 03:25 Ascencio/IV: Voiding Method Toilet Active Medications - Current Medications Current Medications: Generic Name Dose Route Start Last Admin Trade Name Freq PRN Reason Stop Dose Admin Acetaminophen 650 mg 04/08/22 21:13 Acetaminophen 325 Mg Tab PO Q6H PRN Pain, Mild (1-3) Aspirin 81 mg 04/13/22 22:00 04/15/22 21:26 Aspirin Ec 81 Mg Tab PO 81 mg QHS JOHNIE Administration Atorvastatin Calcium 10 mg 04/05/22 22:00 04/15/22 21:26 Atorvastatin 10 Mg Tab PO 10 mg QHS JOHNIE Administration Clopidogrel Bisulfate 75 mg 04/05/22 10:00 04/16/22 09:52 Clopidogrel 75 Mg Tab PO 37.5 mg QDAY [facility] Administration Divalproex Sodium 125 mg 04/06/22 12:00 04/16/22 09:[address] 125 Mg Tab PO Not Given BID [facility] Docusate Sodium 100 mg 04/09/22 10:00 04/16/22 09:52 Docusate Sodium 100 Mg Cap PO 100 mg BID [facility] Administration Ibuprofen 200 mg 04/05/22 22:00 04/15/22 21:27 Ibuprofen 200 Mg Tab PO 200 mg QHS [facility] Administration Levothyroxine Sodium 50 mcg 04/05/22 10:00 04/16/22 06:21 Levothyroxine 50 Mcg Tab PO 50 mcg DAILY@0600 [facility] Administration Losartan Potassium 50 mg 04/05/22 10:00 04/16/22 09:55 Losartan 50 Mg Tab PO Not Given QDAY [facility] Magnesium Hydroxide 30 ml 04/09/22 09:35 Magnesium Hydroxide (Mom) Oral Liqd Udc PO Q4H PRN Constipation Risperidone 0.5 mg 04/07/22 10:00 04/16/22 09:55 Risperidone 0.25 Mg Tab PO Not Given TID [facility] Valacyclovir HCl 500 mg 04/08/22 10:00 04/16/22 09:56 Valacyclovir 500 Mg Tab PO Not Given BID [facility] Nutrition/Malnutrition Assess - Dietary Evaluation Nutrition/Malnutrition Findings: Nutrition Notes Start: 04/13/22 18:02 Freq: Status: Active Protocol: Document 04/13/22 18:02 HEIDI (Rec: 04/13/22 18:15 HEIDI [id number]) Nutrition Notes Need for Assessment generated from: LOS Initial or Follow up Assessment Current Diagnosis Coronary Artery Disease, Hypertension,Hyperlipidemia Other Pertinent Diagnosis CHF, Hypothyroidism, Paranoia & Delusions. Current Diet Cardiac Diet (since B 04/07). Labs/Tests 04/13: Na 136, Cl 96.9, BUN 26 , Crea 1.4. Pertinent Medications 04/13: Levothyroxine, others nutritionally unremarkable. Height 6 ft 1 in Weight 86.183 kg [place] Body Weight (kg) 83.63 BMI 25.0 Intake Prior to Admission Good Weight change and time frame Pt states having loss some body weight [employer]. Weight Status Appropriate Subjective/Other Information RD consult for LOS assessment. Pt's PO intake of meals has been Good (100%) and well tolerated, according to ADL notes. Pt is on Room Air, O2 saturation @ 100%, according to Vital Signs notes. Percent of energy/protein needs met: Prescribed Cardiac Diet provides for energy/protein needs (2,230 Kcal/85 g) during LOS. Burn Absent Trauma Absent GI Symptoms None Food Allergy No Skin Integrity/Comment Assessment WNL. Current % PO Good (75-100%) Minimum of two criteria No Fluid Accumulation N/A Reduced Trimmer Meat Strength N/A (non-severe) Protein-Calorie Malnutrition N\A #1 Nutrition Diagnosis No nutrition diagnosis at this time Is patient on ventilator? No Is Patient Ambulatory and/or Out of Bed Yes REE-([facility]-ambulatory/OOB) [ 2158.923 NUTR.[email or web address]] Calculation Used for Recommendations [facility] Additional Notes Protein: 1-1.2 g/Kg ABW; 86- 103 g/day. Fluids: 1 ml/Kcal, or as per MD. Nutrition Intervention Change Diet Order: Continue Cardiac Diet. Revisit per MD consult or patient Sign Off request: Additional Comments Continue monitoring food tolerance, %PO intake of meals , and BM.
--- NOTE | 2022-04-16 20:36 | Progress Note ---
Assessment and Plan - Patient Problems (1) Delusional disorder Current Visit: Yes Status: Acute Plan to address problem: Continue medical management, supportive care, behavior change counseling (2) Vascular dementia with behavioral disturbance Current Visit: Yes Status: Acute Plan to address problem: Verbal prompting, verbal redirection, benzodiazepine therapy as clinically indicated. (3) Cerebral atherosclerosis Current Visit: Yes Status: Acute Plan to address problem: Risk factor reduction, antiplatelet therapy as clinically indicated. (4) Hypothyroidism Current Visit: Yes Status: Acute Plan to address problem: Continue Synthroid therapy, supportive care. (5) Hypertension Current Visit: Yes Status: Acute Qualifiers: Hypertension type: primary hypertension Qualified Code(s): I10 - Essential (primary) hypertension Plan to address problem: Monitor blood pressure every shift, continue medical management. (6) Advance care planning Current Visit: Yes Status: Acute Plan to address problem: Disease education done, care plan discussed, diagnoses discussed, prognosis discussed, patient is full code. Patient acknowledges understanding and agreement with care plan, +30 minutes. (7) Preventative health care Current Visit: Yes Status: Acute Plan to address problem: Patient counseled regarding home safety, increase protein intake, outpatient follow-up with primary care physician for all age and risk factor appropriate screening tests. +30 minutes. History Interval history: 71 YO Male with Vascular Dementia with Behavioral Disturbance, Cerebral Atherosclerosis, HTN, CAD on DAPT, Hypothyroidism, Delusional Disorder admitted to [facility] for psychiatric stabilization. Consult placed by Dr. Jorge for medical management. Patient seen and evaluated in the recreation room. Patient resting calmly. Patient appears to be at baseline level of cognition and function. Hospitalist Physical - Constitutional Vitals: Temp Pulse Resp BP Pulse Ox 99 F 50 L 16 140/58 99 04/16/22 20:12 04/16/22 20:12 04/16/22 20:12 04/16/22 20:12 04/16/22 20:12 General appearance: Present: no acute distress - EENT Eyes: Present: PERRL ENT: hearing decreased - Neck Neck: Present: supple - Respiratory Respiratory effort: normal Respiratory: bilateral: diminished - Cardiovascular Rhythm: regular Heart Sounds: Present: S1 & S2 - Extremities Extremities: no ischemia Peripheral Pulses: within normal limits - Abdominal General gastrointestinal: soft, non-tender, non-distended - Integumentary Integumentary: Present: clear, dry - Psychiatric Psychiatric: cooperative - Neurologic Neurologic: CNII-XII intact Results - Labs CBC & Chem 7: 04/05/22 03:25 04/05/22 03:25 Labs: Laboratory Last Values WBC 8.5 K/mm3 (4.5-11.0) 04/05/22 03:25 RBC 4.02 M/mm3 (3.65-5.03) 04/05/22 03:25 Hgb 13.9 gm/dl (11.8-15.2) 04/05/22 03:25 Hct 38.9 % (35.5-45.6) 04/05/22 03:25 MCV 97 fl (84-94) H 04/05/22 03:25 MCH 35 pg (28-32) H 04/05/22 03:25 MCHC 36 % (32-34) H 04/05/22 03:25 RDW 13.1 % (13.2-15.2) L 04/05/22 03:25 Plt Count 267 K/mm3 (140-440) 04/05/22 03:25 Lymph % (Auto) 20.2 % (13.4-35.0) 04/05/22 03:25 [place] % (Auto) 12.9 % (0.0-7.3) H 04/05/22 03:25 Eos % (Auto) 3.1 % (0.0-4.3) 04/05/22 03:25 Baso % (Auto) 0.6 % (0.0-1.8) 04/05/22 03:25 Lymph # (Auto) 1.7 K/mm3 (1.2-5.4) 04/05/22 03:25 [place] # (Auto) 1.1 K/mm3 (0.0-0.8) H 04/05/22 03:25 Eos # (Auto) 0.3 K/mm3 (0.0-0.4) 04/05/22 03:25 Baso # (Auto) 0.1 K/mm3 (0.0-0.1) 04/05/22 03:25 Seg Neutrophils % 63.2 % (40.0-70.0) 04/05/22 03:25 Seg Neutrophils # 5.4 K/mm3 (1.8-7.7) 04/05/22 03:25 Sodium 136 mmol/L (137-145) L 04/05/22 03:25 Potassium 4.3 mmol/L (3.6-5.0) 04/05/22 03:25 Chloride 96.9 mmol/L (98-107) L 04/05/22 03:25 Carbon Dioxide 28 mmol/L (22-30) 04/05/22 03:25 Anion Gap 15 mmol/L 04/05/22 03:25 BUN 26 mg/dL (9-20) H 04/05/22 03:25 Creatinine 1.4 mg/dL (0.8-1.3) H 04/05/22 03:25 Estimated GFR 50 ml/min 04/05/22 03:25 BUN/Creatinine Ratio 19 % 04/05/22 03:25 Glucose 99 mg/dL (75-100) 04/05/22 03:25 POC Glucose 98 mg/dL (70-105) 04/05/22 03:54 Hemoglobin A1c 5.2 % (4-6) 04/05/22 03:25 Calcium 9.8 mg/dL (8.4-10.2) 04/05/22 03:25 Total Bilirubin 0.30 mg/dL (0.1-1.2) 04/05/22 03:25 AST 28 units/L (5-40) 04/05/22 03:25 ALT 25 units/L (7-56) 04/05/22 03:25 Alkaline Phosphatase 52 units/L (35-129) 04/05/22 03:25 Total Protein 6.7 g/dL (6.3-8.2) 04/05/22 03:25 Albumin 3.9 g/dL (3.9-5) 04/05/22 03:25 Albumin/Globulin Ratio 1.4 % 04/05/22 03:25 Triglycerides 62 mg/dL (2-149) 04/05/22 03:25 Cholesterol 98 mg/dL (50-199) 04/05/22 03:25 LDL Cholesterol Direct 49 mg/dL (50-130) L 04/05/22 03:25 HDL Cholesterol 39 mg/dL (40-59) L 04/05/22 03:25 Cholesterol/HDL Ratio 2.51 % 04/05/22 03:25 TSH 2.600 mlU/mL (0.270-4.200) 04/05/22 03:25 Ascencio/IV: Voiding Method Toilet Active Medications - Current Medications Current Medications: Generic Name Dose Route Start Last Admin Trade Name Freq PRN Reason Stop Dose Admin Acetaminophen 650 mg 04/08/22 21:13 Acetaminophen 325 Mg Tab PO Q6H PRN Pain, Mild (1-3) Aspirin 81 mg 04/13/22 22:00 04/15/22 21:26 Aspirin Ec 81 Mg Tab PO 81 mg QHS JOHNIE Administration Atorvastatin Calcium 10 mg 04/05/22 22:00 04/15/22 21:26 Atorvastatin 10 Mg Tab PO 10 mg QHS JOHNIE Administration Clopidogrel Bisulfate 75 mg 04/05/22 10:00 04/16/22 09:52 Clopidogrel 75 Mg Tab PO 37.5 mg QDAY [facility] Administration Divalproex Sodium 125 mg 04/06/22 12:00 04/16/22 09:[address] 125 Mg Tab PO Not Given BID [facility] Docusate Sodium 100 mg 04/09/22 10:00 04/16/22 09:52 Docusate Sodium 100 Mg Cap PO 100 mg BID [facility] Administration Ibuprofen 200 mg 04/05/22 22:00 04/15/22 21:27 Ibuprofen 200 Mg Tab PO 200 mg QHS [facility] Administration Levothyroxine Sodium 50 mcg 04/05/22 10:00 04/16/22 06:21 Levothyroxine 50 Mcg Tab PO 50 mcg DAILY@0600 [facility] Administration Losartan Potassium 50 mg 04/05/22 10:00 04/16/22 09:55 Losartan 50 Mg Tab PO Not Given QDAY [facility] Magnesium Hydroxide 30 ml 04/09/22 09:35 Magnesium Hydroxide (Mom) Oral Liqd Udc PO Q4H PRN Constipation Risperidone 0.5 mg 04/07/22 10:00 04/16/22 09:55 Risperidone 0.25 Mg Tab PO Not Given TID [facility] Valacyclovir HCl 500 mg 04/08/22 10:00 04/16/22 09:56 Valacyclovir 500 Mg Tab PO Not Given BID [facility] Nutrition/Malnutrition Assess - Dietary Evaluation Nutrition/Malnutrition Findings: Nutrition Notes Start: 04/13/22 18:02 Freq: Status: Active Protocol: Document 04/13/22 18:02 HEIDI (Rec: 04/13/22 18:15 HEIDI [id number]) Nutrition Notes Need for Assessment generated from: LOS Initial or Follow up Assessment Current Diagnosis Coronary Artery Disease, Hypertension,Hyperlipidemia Other Pertinent Diagnosis CHF, Hypothyroidism, Paranoia & Delusions. Current Diet Cardiac Diet (since B 04/07). Labs/Tests 04/13: Na 136, Cl 96.9, BUN 26 , Crea 1.4. Pertinent Medications 04/13: Levothyroxine, others nutritionally unremarkable. 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 Weight Status Appropriate Subjective/Other Information RD consult for LOS assessment. Pt's PO intake of meals has been Good (100%) and well tolerated, according to ADL notes. Pt is on Room Air, O2 saturation @ 100%, according to Vital Signs notes. Percent of energy/protein needs met: Prescribed Cardiac Diet provides for energy/protein needs (2,230 Kcal/85 g) during LOS. Burn Absent Trauma Absent GI Symptoms None Food Allergy No Skin Integrity/Comment Assessment WNL. Current % PO Good (75-100%) Minimum of two criteria No Fluid Accumulation N/A Reduced Retail Pharmacist Strength N/A (non-severe) Protein-Calorie Malnutrition N\A #1 Nutrition Diagnosis No nutrition diagnosis at this time Is patient on ventilator? No Is Patient Ambulatory and/or Out of Bed Yes REE-([facility]-ambulatory/OOB) [ 2158.923 [id number]] Calculation Used for Recommendations [facility] Additional Notes Protein: 1-1.2 g/Kg ABW; 86- 103 g/day. Fluids: 1 ml/Kcal, or as per MD. Nutrition Intervention Change Diet Order: Continue Cardiac Diet. Revisit per MD consult or patient Sign Off request: Additional Comments Continue monitoring food tolerance, %PO intake of meals , and BM.
[2022-04-16] MEDS: IBUPROFEN 200 MG TAB PO SCH (21:52)
[2022-04-16] MEDS: ASPIRIN EC 81 MG TAB PO SCH (21:52)
[2022-04-17] MEDS: LEVOTHYROXINE 50 MCG TAB PO SCH (06:09)
[2022-04-17] MEDS: valACYclovir 500 MG TAB PO SCH ×2 (09:51→21:32)
[2022-04-17] MEDS: DOCUSATE SODIUM 100 MG CAP PO SCH ×2 (09:52→21:31)
[2022-04-17] MEDS: CLOPIDOGREL 75 MG TAB PO SCH (09:52)
[2022-04-17] MEDS: risperiDONE 0.25 MG TAB PO SCH ×4 (09:56→20:36)
[2022-04-17] MEDS: DIVALPROEX DR 125 MG TAB PO SCH ×2 (09:56→21:32)
[2022-04-17] MEDS: LOSARTAN 50 MG TAB PO SCH (09:56)
--- NOTE | 2022-04-17 10:03 | Progress Note ---
Subjective Date of service: 04/17/22 Principal diagnosis: Delusional Disorder Subjective Comment: Subjective Date of service: 04/17/2022 Principal diagnosis: Delusional Disorder Subjective Comment: Patient seen today in the hallway. Patient getting anxious because his placement has not been sorted out. Patient states he would like to get his credit card so he can pay for his accommodation as he has no where to go otherwise. Patient denies any SI/HI at this time. Date of service: 04/16/2022 Principal diagnosis: Delusional Disorder Subjective Comment: Patient seen today in the day room. Patient states that his feet are swollen and may need lasix for the swelling. Patient was told that hospitalist will come talk to him and RN informed. Patient denies any SI/HI at this time. Date of service: 04/15/22 Principal diagnosis: Delusional Disorder Subjective Comment: Patient seen today . Patient calm and cooperative.Patient refusing to take his antipsychotics because he states he doesnt have any "mood issues". Patient is taking every other medication. Patient waiting on placement. Pt denies any SI/HI at this time. Date of service: 04/14/2022: Principal diagnosis: Delusional Disorder Subjective Comment: Patient seen today alert and able to communicate with me. Patient ok to go home from psych stand point, but waiting on placement.Patient denies any SI/HI at this time. 04/13/22 Principal diagnosis: Delusional Disorder Subjective Comment: The patient was seen today. He is in his room awake. He is calm and cooperative. He says he's doing pretty well. He denies SI/HI or hallucinations of any kind. 04/12 The patient was seen today. He is calm and cooperative. He is walking in the [place]. He says he's getting his exercise in. He asks for an ensure. The patient denies SI/HI or hallucinations of any kind. The patient will discharge tomorrow if night uneventful and has outpatient resources in place. 04/11 The patient was seen today. He says he is doing fine. The patient asked to speak to the about an assisted living. I informed him that I would inform the of his request. The patient denies SI/HI or hallucinations. The patient will discharge once outpatient resources are in place to ensure continuity of his mental wellness. 04/10 The patient was seen today. He says he is doing fair. He refers to himself as Dr. Vásquez. He denies SI/HI or hallucinations of any kind. 04/09 The patient was seen today. He says he is feeling fine. He refers to himself as "Dr. Vásquez." The patient denies SI/HI or hallucinations. He says he has not had a bowel movement in 4 days. 04/08 The patient was seen today. He is sitting in the dayroom. He is delusional. He is calm and cooperative. He introduces himself as "Dr. Vsáquez." He denies SI/HI or hallucinations. REVIEW OF SYSTEMS Constitutional: Negative for weight loss ENT: Negative for stridor Respiratory: Negative for cough or hemoptysis All other systems reviewed and are negative MENTAL STATUS EXAMINATION General Appearance and Behavior: Age appropriate, wearing appropriate clothes, cooperative, polite with questioning, good eye contact Cooperation: cooperative Psychomotor Behavior: Psychomotor normal Mood: fair Affect and affective range: congruent with stated affect Thought Process: Circumstantial Thought Content: good Speech: Normal volume, Regular rate and rhythm Suicidal Ideation: Denies Homicidal Ideation: Denies Hallucination: Denies Delusions: No Impulse Control: Limited Insight and Judgment: Limited Memory: Intact Attention:attentive Orientation: Alert and oriented Diagnoses: Delusional Disorder Treatment Plan Patient cleared from psych stand point Patient provided with a safe and structured environment. Patient's physical health needs will be addressed by the Hospitalist. Hospitalist Consulted Labs including CBC, CMP, Lipid profile and Hemoglobin A1C levels ordered for baseline reference Social Assessment will be completed and the Superintendent Of Schools will work with patient and family to ensure a suitable and safe disposition Medication adjustment will be made as clinically indicated The patient agreed on the treatment plan, understood the risk, benefit, alternative treatment, potential consequence of no treatment, and gave informed consent. Estimated days: 7 Post hospital care: primary care provider, psychiatric provider Case staffed with Dr. Torres Medications and Allergies Allergies Allergy/AdvReac Type Severity Reaction Status Date / Time Sulfa (Sulfonamide Allergy Vomiting Verified 04/05/22 01:32 Antibiotics) Home Medications Medication Instructions Recorded Confirmed Last Taken Type Aspirin [[place]] 81 mg PO DAILY 04/05/22 04/05/22 Unknown History AtorvaSTATin [Lipitor] 10 mg PO QHS 04/05/22 04/05/22 Unknown History Clopidogrel [Plavix] 75 mg PO QDAY 04/05/22 04/05/22 Unknown History Famciclovir [Famvir Tab] 500 mg PO Q12H 04/05/22 04/05/22 Unknown History Ibuprofen [Advil Migraine] 200 mg PO HS 04/05/22 04/05/22 Unknown History Levothyroxine [Synthroid] 50 mcg PO QAM 04/05/22 04/05/22 Unknown History Olmesartan Medoxomil [Benicar] 20 mg PO DAILY 04/05/22 04/05/22 Unknown History Active Meds: Active Medications Acetaminophen (Acetaminophen 325 Mg Tab) 650 mg PO Q6H PRN PRN Reason: Pain, Mild (1-3) Aspirin (Aspirin Ec 81 Mg Tab) 81 mg PO QHS [facility] Last Admin: 04/16/22 21:52 Dose: 81 mg Atorvastatin Calcium (Atorvastatin 10 Mg Tab) 10 mg PO QHS [facility] Last Admin: 04/16/22 21:51 Dose: 10 mg Clopidogrel Bisulfate (Clopidogrel 75 Mg Tab) 75 mg PO QDAY [facility] Last Admin: 04/17/22 09:52 Dose: 75 mg Divalproex Sodium (Divalproex Dr 125 Mg Tab) 125 mg PO BID [facility] Last Admin: 04/17/22 09:56 Dose: Not Given Docusate Sodium (Docusate Sodium 100 Mg Cap) 100 mg PO BID [facility] Last Admin: 04/17/22 09:52 Dose: 100 mg Ibuprofen (Ibuprofen 200 Mg Tab) 200 mg PO QHS [facility] Last Admin: 04/16/22 21:52 Dose: 200 mg Levothyroxine Sodium (Levothyroxine 50 Mcg Tab) 50 mcg PO DAILY@0600 [facility] Last Admin: 04/17/22 06:09 Dose: 50 mcg Losartan Potassium (Losartan 50 Mg Tab) 50 mg PO QDAY [facility] Last Admin: 04/17/22 09:56 Dose: Not Given Magnesium Hydroxide (Magnesium Hydroxide (Mom) Oral Liqd Udc) 30 ml PO Q4H PRN PRN Reason: Constipation Risperidone (Risperidone 0.25 Mg Tab) 0.5 mg PO TID [facility] Last Admin: 04/17/22 09:56 Dose: Not Given Valacyclovir HCl (Valacyclovir 500 Mg Tab) 500 mg PO BID [facility] Last Admin: 04/17/22 09:51 Dose: 500 mg Results - Results Labs/Vitals: Laboratory Last Values WBC 8.5 K/mm3 (4.5-11.0) 04/05/22 03:25 RBC 4.02 M/mm3 (3.65-5.03) 04/05/22 03:25 Hgb 13.9 gm/dl (11.8-15.2) 04/05/22 03:25 Hct 38.9 % (35.5-45.6) 04/05/22 03:25 MCV 97 fl (84-94) H 04/05/22 03:25 MCH 35 pg (28-32) H 04/05/22 03:25 MCHC 36 % (32-34) H 04/05/22 03:25 RDW 13.1 % (13.2-15.2) L 04/05/22 03:25 Plt Count 267 K/mm3 (140-440) 04/05/22 03:25 Lymph % (Auto) 20.2 % (13.4-35.0) 04/05/22 03:25 [place] % (Auto) 12.9 % (0.0-7.3) H 04/05/22 03:25 Eos % (Auto) 3.1 % (0.0-4.3) 04/05/22 03:25 Baso % (Auto) 0.6 % (0.0-1.8) 04/05/22 03:25 Lymph # (Auto) 1.7 K/mm3 (1.2-5.4) 04/05/22 03:25 [place] # (Auto) 1.1 K/mm3 (0.0-0.8) H 04/05/22 03:25 Eos # (Auto) 0.3 K/mm3 (0.0-0.4) 04/05/22 03:25 Baso # (Auto) 0.1 K/mm3 (0.0-0.1) 04/05/22 03:25 Seg Neutrophils % 63.2 % (40.0-70.0) 04/05/22 03:25 Seg Neutrophils # 5.4 K/mm3 (1.8-7.7) 04/05/22 03:25 Sodium 136 mmol/L (137-145) L 04/05/22 03:25 Potassium 4.3 mmol/L (3.6-5.0) 04/05/22 03:25 Chloride 96.9 mmol/L (98-107) L 04/05/22 03:25 Carbon Dioxide 28 mmol/L (22-30) 04/05/22 03:25 Anion Gap 15 mmol/L 04/05/22 03:25 BUN 26 mg/dL (9-20) H 04/05/22 03:25 Creatinine 1.4 mg/dL (0.8-1.3) H 04/05/22 03:25 Estimated GFR 50 ml/min 04/05/22 03:25 BUN/Creatinine Ratio 19 % 04/05/22 03:25 Glucose 99 mg/dL (75-100) 04/05/22 03:25 POC Glucose 98 mg/dL (70-105) 04/05/22 03:54 Hemoglobin A1c 5.2 % (4-6) 04/05/22 03:25 Calcium 9.8 mg/dL (8.4-10.2) 04/05/22 03:25 Total Bilirubin 0.30 mg/dL (0.1-1.2) 04/05/22 03:25 AST 28 units/L (5-40) 04/05/22 03:25 ALT 25 units/L (7-56) 04/05/22 03:25 Alkaline Phosphatase 52 units/L (35-129) 04/05/22 03:25 Total Protein 6.7 g/dL (6.3-8.2) 04/05/22 03:25 Albumin 3.9 g/dL (3.9-5) 04/05/22 03:25 Albumin/Globulin Ratio 1.4 % 04/05/22 03:25 Triglycerides 62 mg/dL (2-149) 04/05/22 03:25 Cholesterol 98 mg/dL (50-199) 04/05/22 03:25 LDL Cholesterol Direct 49 mg/dL (50-130) L 04/05/22 03:25 HDL Cholesterol 39 mg/dL (40-59) L 04/05/22 03:25 Cholesterol/HDL Ratio 2.51 % 04/05/22 03:25 TSH 2.600 mlU/mL (0.270-4.200) 04/05/22 03:25 Last Vital Signs Temp 99 F 04/16/22 20:12 Pulse 50 L 04/17/22 09:56 Resp 16 04/16/22 20:12 BP 140/58 04/16/22 20:12 Pulse Ox 99 04/16/22 20:12
--- NOTE | 2022-04-17 13:57 | Progress Note ---
Assessment and Plan 71 YO Male with Vascular Dementia with Behavioral Disturbance, Cerebral Atherosclerosis, HTN, CAD on DAPT, Hypothyroidism, Delusional Disorder admitted to [facility] psych unit for psychiatric stabilization. Consult placed by Dr. Jorge for medical management. Patient seen and evaluated in the recreation room. Patient resting calmly. Patient appears to be at baseline level of cognition and function. (1) Delusional disorder Current Visit: Yes Status: Acute Plan to address problem: Continue medical management, supportive care, behavior change counseling (2) Vascular dementia with behavioral disturbance Current Visit: Yes Status: Acute Plan to address problem: Verbal prompting, verbal redirection, benzodiazepine therapy as clinically indicated. (3) Cerebral atherosclerosis Current Visit: Yes Status: Acute Plan to address problem: Risk factor reduction, antiplatelet therapy as clinically indicated. (4) Hypothyroidism Current Visit: Yes Status: Acute Plan to address problem: Continue Synthroid therapy, supportive care. (5) Hypertension Current Visit: Yes Status: Acute Qualifiers: Hypertension type: primary hypertension Qualified Code(s): I10 - Essential (primary) hypertension Plan to address problem: Monitor blood pressure every shift, continue medical management. -- Recommend Evaluation by case management for placement Subjective Date of service: 04/17/22 Principal diagnosis: Delusional Disorder Interval history: Patient seen and examined. Medical records and medication list reviewed. No acute event overnight noted by the RN. Patient denies any chest pain or difficulty breathing. Patient is tolerating diet. Patient states that he needs placement on discharge Objective - Exam Narrative Exam: General appearance: Present: no acute distress - EENT Eyes: Present: PERRL ENT: hearing decreased - Neck Neck: Present: supple - Respiratory Respiratory effort: normal Respiratory: bilateral: diminished - Cardiovascular Rhythm: regular Heart Sounds: Present: S1 & S2 - Extremities Extremities: no ischemia Peripheral Pulses: within normal limits - Abdominal General gastrointestinal: soft, non-tender, non-distended - Integumentary Integumentary: Present: clear, dry - Psychiatric Psychiatric: cooperative - Neurologic Neurologic: CNII-XII intact - Constitutional Vitals: Vital Signs - 12hr 04/17/22 04/17/22 08:44 09:56 Temperature 98.7 F Pulse Rate 50 L 50 L Respiratory 16 Rate Blood Pressure 133/50 O2 Sat by Pulse 100 Oximetry - Labs CBC & Chem 7: 04/05/22 03:25 04/05/22 03:25
[2022-04-17] MEDS: ASPIRIN EC 81 MG TAB PO SCH (21:31)
[2022-04-17] MEDS: IBUPROFEN 200 MG TAB PO SCH (21:31)
[2022-04-18] MEDS: LEVOTHYROXINE 50 MCG TAB PO SCH (06:01)
--- NOTE | 2022-04-18 10:37 | Progress Note ---
Subjective Date of service: 04/18/22 Principal diagnosis: Delusional Disorder Subjective Comment: Subjective Subjective Date of service: 04/18/22 Principal diagnosis: Delusional Disorder Subjective Comment: Patient seen in his room. Patient states he is doing well. Patient still complaining of swollen foot and needing Lasix. Patient denies SI/HI/at this time. Patient also denies auditory and visual hallucination. Patient still waiting on placement. Date of service: 04/17/2022 Principal diagnosis: Delusional Disorder Subjective Comment: Patient seen today in the hallway. Patient getting anxious because his placement has not been sorted out. Patient states he would like to get his credit card so he can pay for his accommodation as he has no where to go otherwise. Patient denies any SI/HI at this time. Date of service: 04/16/2022 Principal diagnosis: Delusional Disorder Subjective Comment: Patient seen today in the day room. Patient states that his feet are swollen and may need lasix for the swelling. Patient was told that hospitalist will come talk to him and RN informed. Patient denies any SI/HI at this time. Date of service: 04/15/22 Principal diagnosis: Delusional Disorder Subjective Comment: Patient seen today . Patient calm and cooperative.Patient refusing to take his antipsychotics because he states he doesnt have any "mood issues". Patient is taking every other medication. Patient waiting on placement. Pt denies any SI/HI at this time. Date of service: 04/14/2022: Principal diagnosis: Delusional Disorder Subjective Comment: Patient seen today alert and able to communicate with me. Patient ok to go home from psych stand point, but waiting on placement.Patient denies any SI/HI at this time. 04/13/22 Principal diagnosis: Delusional Disorder Subjective Comment: The patient was seen today. He is in his room awake. He is calm and cooperative. He says he's doing pretty well. He denies SI/HI or hallucinations of any kind. 04/12 The patient was seen today. He is calm and cooperative. He is walking in the [place]. He says he's getting his exercise in. He asks for an ensure. The patient denies SI/HI or hallucinations of any kind. The patient will discharge tomorrow if night uneventful and has outpatient resources in place. 04/11 The patient was seen today. He says he is doing fine. The patient asked to speak to the about an assisted living. I informed him that I would inform the SW of his request. The patient denies SI/HI or hallucinations. The patient will discharge once outpatient resources are in place to ensure continuity of his mental wellness. 04/10 The patient was seen today. He says he is doing fair. He refers to himself as Dr. Vásquez. He denies SI/HI or hallucinations of any kind. 04/09 The patient was seen today. He says he is feeling fine. He refers to himself as "Dr. Vásquez." The patient denies SI/HI or hallucinations. He says he has not had a bowel movement in 4 days. 04/08 The patient was seen today. He is sitting in the dayroom. He is delusional. He is calm and cooperative. He introduces himself as "Dr. Vásquez." He denies SI/HI or hallucinations. REVIEW OF SYSTEMS Constitutional: Negative for weight loss ENT: Negative for stridor Respiratory: Negative for cough or hemoptysis All other systems reviewed and are negative MENTAL STATUS EXAMINATION General Appearance and Behavior: Age appropriate, wearing appropriate clothes, cooperative, polite with questioning, good eye contact Cooperation: cooperative Psychomotor Behavior: Psychomotor normal Mood: fair Affect and affective range: congruent with stated affect Thought Process: Circumstantial Thought Content: good Speech: Normal volume, Regular rate and rhythm Suicidal Ideation: Denies Homicidal Ideation: Denies Hallucination: Denies Delusions: No Impulse Control: Limited Insight and Judgment: Limited Memory: Intact Attention:attentive Orientation: Alert and oriented Diagnoses: Delusional Disorder Treatment Plan Patient cleared from psych stand point Patient provided with a safe and structured environment. Patient's physical health needs will be addressed by the Hospitalist. Hospitalist Consulted Labs including CBC, CMP, Lipid profile and Hemoglobin A1C levels ordered for b aseline reference Social Assessment will be completed and the Stress Analyst will work with patient and family to ensure a suitable and safe disposition Medication adjustment will be made as clinically indicated The patient agreed on the treatment plan, understood the risk, benefit, alternative treatment, potential consequence of no treatment, and gave informed consent. Estimated days: 7 Post hospital care: primary care provider, psychiatric provider Case staffed with Dr. Torres Medications and Allergies Allergies Allergy/AdvReac Type Severity Reaction Status Date / Time Sulfa (Sulfonamide Allergy Vomiting Verified 04/05/22 01:32 Antibiotics) Home Medications Medication Instructions Recorded Confirmed Last Taken Type Aspirin [Vazalore] 81 mg PO DAILY 04/05/22 04/05/22 Unknown History AtorvaSTATin [Lipitor] 10 mg PO QHS 04/05/22 04/05/22 Unknown History Clopidogrel [Plavix] 75 mg PO QDAY 04/05/22 04/05/22 Unknown History Famciclovir [Famvir Tab] 500 mg PO Q12H 04/05/22 04/05/22 Unknown History Ibuprofen [Advil Migraine] 200 mg PO HS 04/05/22 04/05/22 Unknown History Levothyroxine [Synthroid] 50 mcg PO QAM 04/05/22 04/05/22 Unknown History Olmesartan Medoxomil [Benicar] 20 mg PO DAILY 04/05/22 04/05/22 Unknown History Active Meds: Active Medications Acetaminophen (Acetaminophen 325 Mg Tab) 650 mg PO Q6H PRN PRN Reason: Pain, Mild (1-3) Aspirin (Aspirin Ec 81 Mg Tab) 81 mg PO QHS [facility] Last Admin: 04/17/22 21:31 Dose: 81 mg Atorvastatin Calcium (Atorvastatin 10 Mg Tab) 10 mg PO QHS [facility] Last Admin: 04/17/22 21:31 Dose: 10 mg Clopidogrel Bisulfate (Clopidogrel 75 Mg Tab) 75 mg PO QDAY [facility] Last Admin: 04/17/22 09:52 Dose: 75 mg Divalproex Sodium (Divalproex Dr 125 Mg Tab) 125 mg PO BID [facility] Last Admin: 04/17/22 21:32 Dose: Not Given Docusate Sodium (Docusate Sodium 100 Mg Cap) 100 mg PO BID [facility] Last Admin: 04/17/22 21:31 Dose: 100 mg Ibuprofen (Ibuprofen 200 Mg Tab) 200 mg PO QHS [facility] Last Admin: 04/17/22 21:31 Dose: 200 mg Levothyroxine Sodium (Levothyroxine 50 Mcg Tab) 50 mcg PO DAILY@0600 [facility] Last Admin: 04/18/22 06:01 Dose: 50 mcg Losartan Potassium (Losartan 50 Mg Tab) 50 mg PO QDAY [facility] Last Admin: 04/17/22 09:56 Dose: Not Given Magnesium Hydroxide (Magnesium Hydroxide (Mom) Oral Liqd Udc) 30 ml PO Q4H PRN PRN Reason: Constipation Risperidone (Risperidone 0.25 Mg Tab) 0.5 mg PO TID [facility] Last Admin: 04/17/22 20:36 Dose: Not Given Valacyclovir HCl (Valacyclovir 500 Mg Tab) 500 mg PO BID [facility] Last Admin: 04/17/22 21:32 Dose: 500 mg Results - Results Labs/Vitals: Laboratory Last Values WBC 8.5 K/mm3 (4.5-11.0) 04/05/22 03:25 RBC 4.02 M/mm3 (3.65-5.03) 04/05/22 03:25 Hgb 13.9 gm/dl (11.8-15.2) 04/05/22 03:25 Hct 38.9 % (35.5-45.6) 04/05/22 03:25 MCV 97 fl (84-94) H 04/05/22 03:25 MCH 35 pg (28-32) H 04/05/22 03:25 MCHC 36 % (32-34) H 04/05/22 03:25 RDW 13.1 % (13.2-15.2) L 04/05/22 03:25 Plt Count 267 K/mm3 (140-440) 04/05/22 03:25 Lymph % (Auto) 20.2 % (13.4-35.0) 04/05/22 03:25 [place] % (Auto) 12.9 % (0.0-7.3) H 04/05/22 03:25 Eos % (Auto) 3.1 % (0.0-4.3) 04/05/22 03:25 Baso % (Auto) 0.6 % (0.0-1.8) 04/05/22 03:25 Lymph # (Auto) 1.7 K/mm3 (1.2-5.4) 04/05/22 03:25 [place] # (Auto) 1.1 K/mm3 (0.0-0.8) H 04/05/22 03:25 Eos # (Auto) 0.3 K/mm3 (0.0-0.4) 04/05/22 03:25 Baso # (Auto) 0.1 K/mm3 (0.0-0.1) 04/05/22 03:25 Seg Neutrophils % 63.2 % (40.0-70.0) 04/05/22 03:25 Seg Neutrophils # 5.4 K/mm3 (1.8-7.7) 04/05/22 03:25 Sodium 136 mmol/L (137-145) L 04/05/22 03:25 Potassium 4.3 mmol/L (3.6-5.0) 04/05/22 03:25 Chloride 96.9 mmol/L (98-107) L 04/05/22 03:25 Carbon Dioxide 28 mmol/L (22-30) 04/05/22 03:25 Anion Gap 15 mmol/L 04/05/22 03:25 BUN 26 mg/dL (9-20) H 04/05/22 03:25 Creatinine 1.4 mg/dL (0.8-1.3) H 04/05/22 03:25 Estimated GFR 50 ml/min 04/05/22 03:25 BUN/Creatinine Ratio 19 % 04/05/22 03:25 Glucose 99 mg/dL (75-100) 04/05/22 03:25 POC Glucose 98 mg/dL (70-105) 04/05/22 03:54 Hemoglobin A1c 5.2 % (4-6) 04/05/22 03:25 Calcium 9.8 mg/dL (8.4-10.2) 04/05/22 03:25 Total Bilirubin 0.30 mg/dL (0.1-1.2) 04/05/22 03:25 AST 28 units/L (5-40) 04/05/22 03:25 ALT 25 units/L (7-56) 04/05/22 03:25 Alkaline Phosphatase 52 units/L (35-129) 04/05/22 03:25 Total Protein 6.7 g/dL (6.3-8.2) 04/05/22 03:25 Albumin 3.9 g/dL (3.9-5) 04/05/22 03:25 Albumin/Globulin Ratio 1.4 % 04/05/22 03:25 Triglycerides 62 mg/dL (2-149) 04/05/22 03:25 Cholesterol 98 mg/dL (50-199) 04/05/22 03:25 LDL Cholesterol Direct 49 mg/dL (50-130) L 04/05/22 03:25 HDL Cholesterol 39 mg/dL (40-59) L 04/05/22 03:25 Cholesterol/HDL Ratio 2.51 % 04/05/22 03:25 TSH 2.600 mlU/mL (0.270-4.200) 04/05/22 03:25 Last Vital Signs Temp 98.3 F 04/17/22 19:49 Pulse 52 L 04/17/22 19:49 Resp 18 04/17/22 21:31 BP 145/61 04/17/22 19:49 Pulse Ox 98 04/17/22 19:49
[2022-04-18] MEDS: valACYclovir 500 MG TAB PO SCH ×2 (10:57→21:37)
[2022-04-18] MEDS: LOSARTAN 50 MG TAB PO SCH (10:57)
[2022-04-18] MEDS: DIVALPROEX DR 125 MG TAB PO SCH ×2 (10:58→21:33)
[2022-04-18] MEDS: CLOPIDOGREL 75 MG TAB PO SCH (10:58)
[2022-04-18] MEDS: DOCUSATE SODIUM 100 MG CAP PO SCH ×2 (10:58→21:37)
[2022-04-18] MEDS: risperiDONE 0.25 MG TAB PO SCH ×3 (11:06→21:33)
[2022-04-18] MEDS: ASPIRIN EC 81 MG TAB PO SCH (21:37)
[2022-04-18] MEDS: IBUPROFEN 200 MG TAB PO SCH (21:38)
[2022-04-19] MEDS: LEVOTHYROXINE 50 MCG TAB PO SCH (06:27)
[2022-04-19] MEDS: risperiDONE 0.25 MG TAB PO SCH ×3 (08:40→21:01)
[2022-04-19] MEDS: valACYclovir 500 MG TAB PO SCH ×2 (09:27→20:59)
[2022-04-19] MEDS: LOSARTAN 50 MG TAB PO SCH (09:27)
[2022-04-19] MEDS: DIVALPROEX DR 125 MG TAB PO SCH ×2 (09:27→21:01)
[2022-04-19] MEDS: CLOPIDOGREL 75 MG TAB PO SCH (09:35)
[2022-04-19] MEDS: DOCUSATE SODIUM 100 MG CAP PO SCH ×2 (09:35→21:00)
--- NOTE | 2022-04-19 10:15 | Progress Note ---
Subjective Date of service: 04/19/22 Principal diagnosis: Delusional Disorder Subjective Comment: Subjective Date of service: 04/19/22 Principal diagnosis: Delusional Disorder Subjective Comment: Patient seen in his room. Patient states that he is doing well. Patient states thta he is ready to leave and the only voices he wants to hear is Liliana's own, that is helping with his housing situation. Patient still refusing all his antipsychotic medications, and denies any SI/HI at this time. Date of service: 04/18/22 Principal diagnosis: Delusional Disorder Subjective Comment: Patient seen in his room. Patient states he is doing well. Patient still complaining of swollen foot and needing Lasix. Patient denies SI/HI/at this time. Patient also denies auditory and visual hallucination. Patient still waiting on placement. Date of service: 04/17/2022 Principal diagnosis: Delusional Disorder Subjective Comment: Patient seen today in the hallway. Patient getting anxious because his placement has not been sorted out. Patient states he would like to get his credit card so he can pay for his accommodation as he has no where to go otherwise. Patient denies any SI/HI at this time. Date of service: 04/16/2022 Principal diagnosis: Delusional Disorder Subjective Comment: Patient seen today in the day room. Patient states that his feet are swollen and may need lasix for the swelling. Patient was told that hospitalist will come talk to him and RN informed. Patient denies any SI/HI at this time. Date of service: 04/15/22 Principal diagnosis: Delusional Disorder Subjective Comment: Patient seen today . Patient calm and cooperative.Patient refusing to take his antipsychotics because he states he doesnt have any "mood issues". Patient is taking every other medication. Patient waiting on placement. Pt denies any SI/HI at this time. Date of service: 04/14/2022: Principal diagnosis: Delusional Disorder Subjective Comment: Patient seen today alert and able to communicate with me. Patient ok to go home from psych stand point, but waiting on placement.Patient denies any SI/HI at this time. 04/13/22 Principal diagnosis: Delusional Disorder Subjective Comment: The patient was seen today. He is in his room awake. He is calm and cooperative. He says he's doing pretty well. He denies SI/HI or hallucinations of any kind. 04/12 The patient was seen today. He is calm and cooperative. He is walking in the [place]. He says he's getting his exercise in. He asks for an ensure. The patient denies SI/HI or hallucinations of any kind. The patient will discharge tomorrow if night uneventful and has outpatient resources in place. 04/11 The patient was seen today. He says he is doing fine. The patient asked to speak to the about an assisted living. I informed him that I would inform the of his request. The patient denies SI/HI or hallucinations. The patient will discharge once outpatient resources are in place to ensure continuity of his mental wellness. 04/10 The patient was seen today. He says he is doing fair. He refers to himself as Dr. Vásquez. He denies SI/HI or hallucinations of any kind. 04/09 The patient was seen today. He says he is feeling fine. He refers to himself as "Dr. Vásquez." The patient denies SI/HI or hallucinations. He says he has not had a bowel movement in 4 days. 04/08 The patient was seen today. He is sitting in the dayroom. He is delusional. He is calm and cooperative. He introduces himself as "Dr. Vásquez." He denies SI/HI or hallucinations. REVIEW OF SYSTEMS Constitutional: Negative for weight loss ENT: Negative for stridor Respiratory: Negative for cough or hemoptysis All other systems reviewed and are negative MENTAL STATUS EXAMINATION General Appearance and Behavior: Age appropriate, wearing appropriate clothes, cooperative, polite with questioning, good eye contact Cooperation: cooperative Psychomotor Behavior: Psychomotor normal Mood: fair Affect and affective range: congruent with stated affect Thought Process: Circumstantial Thought Content: good Speech: Normal volume, Regular rate and rhythm Suicidal Ideation: Denies Homicidal Ideation: Denies Hallucination: Denies Delusions: No Impulse Control: Limited Insight and Judgment: Limited Memory: Intact Attention:attentive Orientation: Alert and oriented Diagnoses: Delusional Disorder Treatment Plan Patient cleared from psych stand point Patient provided with a safe and structured environment. Patient's physical health needs will be addressed by the Hospitalist. Hospitalist Consulted Labs including CBC, CMP, Lipid profile and Hemoglobin A1C levels ordered for baseline reference Social Assessment will be completed and the Ditch Worker will work with patient and family to ensure a suitable and safe disposition Medication adjustment will be made as clinically indicated The patient agreed on the treatment plan, understood the risk, benefit, alternative treatment, potential consequence of no treatment, and gave informed consent. Estimated days: 7 Post hospital care: primary care provider, psychiatric provider Case staffed with Dr. Torres Medications and Allergies Allergies Allergy/AdvReac Type Severity Reaction Status Date / Time Sulfa (Sulfonamide Allergy Vomiting Verified 04/05/22 01:32 Antibiotics) Home Medications Medication Instructions Recorded Confirmed Last Taken Type Aspirin [Vazalore] 81 mg PO DAILY 04/05/22 04/05/22 Unknown History AtorvaSTATin [Lipitor] 10 mg PO QHS 04/05/22 04/05/22 Unknown History Clopidogrel [Plavix] 75 mg PO QDAY 04/05/22 04/05/22 Unknown History Famciclovir [Famvir Tab] 500 mg PO Q12H 04/05/22 04/05/22 Unknown History Ibuprofen [Advil Migraine] 200 mg PO HS 04/05/22 04/05/22 Unknown History Levothyroxine [Synthroid] 50 mcg PO QAM 04/05/22 04/05/22 Unknown History Olmesartan Medoxomil [Benicar] 20 mg PO DAILY 04/05/22 04/05/22 Unknown History Active Meds: Active Medications Acetaminophen (Acetaminophen 325 Mg Tab) 650 mg PO Q6H PRN PRN Reason: Pain, Mild (1-3) Aspirin (Aspirin Ec 81 Mg Tab) 81 mg PO QHS [facility] Last Admin: 04/18/22 21:37 Dose: 81 mg Atorvastatin Calcium (Atorvastatin 10 Mg Tab) 10 mg PO QHS [facility] Last Admin: 04/18/22 21:37 Dose: 10 mg Clopidogrel Bisulfate (Clopidogrel 75 Mg Tab) 75 mg PO QDAY [facility] Last Admin: 04/19/22 09:35 Dose: 75 mg Divalproex Sodium (Divalproex Dr 125 Mg Tab) 125 mg PO BID [facility] Last Admin: 04/19/22 09:27 Dose: Not Given Docusate Sodium (Docusate Sodium 100 Mg Cap) 100 mg PO BID [facility] Last Admin: 04/19/22 09:35 Dose: 100 mg Ibuprofen (Ibuprofen 200 Mg Tab) 200 mg PO QHS [facility] Last Admin: 04/18/22 21:38 Dose: Not Given Levothyroxine Sodium (Levothyroxine 50 Mcg Tab) 50 mcg PO DAILY@0600 [facility] Last Admin: 04/19/22 06:27 Dose: 50 mcg Losartan Potassium (Losartan 50 Mg Tab) 50 mg PO QDAY [facility] Last Admin: 04/19/22 09:27 Dose: Not Given Magnesium Hydroxide (Magnesium Hydroxide (Mom) Oral Liqd Udc) 30 ml PO Q4H PRN PRN Reason: Constipation Risperidone (Risperidone 0.25 Mg Tab) 0.5 mg PO TID [facility] Last Admin: 04/19/22 08:40 Dose: Not Given Valacyclovir HCl (Valacyclovir 500 Mg Tab) 500 mg PO BID [facility] Last Admin: 04/19/22 09:27 Dose: Not Given Results - Results Labs/Vitals: Laboratory Last Values WBC 8.5 K/mm3 (4.5-11.0) 04/05/22 03:25 RBC 4.02 M/mm3 (3.65-5.03) 04/05/22 03:25 Hgb 13.9 gm/dl (11.8-15.2) 04/05/22 03:25 Hct 38.9 % (35.5-45.6) 04/05/22 03:25 MCV 97 fl (84-94) H 04/05/22 03:25 MCH 35 pg (28-32) H 04/05/22 03:25 MCHC 36 % (32-34) H 04/05/22 03:25 RDW 13.1 % (13.2-15.2) L 04/05/22 03:25 Plt Count 267 K/mm3 (140-440) 04/05/22 03:25 Lymph % (Auto) 20.2 % (13.4-35.0) 04/05/22 03:25 [place] % (Auto) 12.9 % (0.0-7.3) H 04/05/22 03:25 Eos % (Auto) 3.1 % (0.0-4.3) 04/05/22 03:25 Baso % (Auto) 0.6 % (0.0-1.8) 04/05/22 03:25 Lymph # (Auto) 1.7 K/mm3 (1.2-5.4) 04/05/22 03:25 [place] # (Auto) 1.1 K/mm3 (0.0-0.8) H 04/05/22 03:25 Eos # (Auto) 0.3 K/mm3 (0.0-0.4) 04/05/22 03:25 Baso # (Auto) 0.1 K/mm3 (0.0-0.1) 04/05/22 03:25 Seg Neutrophils % 63.2 % (40.0-70.0) 04/05/22 03:25 Seg Neutrophils # 5.4 K/mm3 (1.8-7.7) 04/05/22 03:25 Sodium 136 mmol/L (137-145) L 04/05/22 03:25 Potassium 4.3 mmol/L (3.6-5.0) 04/05/22 03:25 Chloride 96.9 mmol/L (98-107) L 04/05/22 03:25 Carbon Dioxide 28 mmol/L (22-30) 04/05/22 03:25 Anion Gap 15 mmol/L 04/05/22 03:25 BUN 26 mg/dL (9-20) H 04/05/22 03:25 Creatinine 1.4 mg/dL (0.8-1.3) H 04/05/22 03:25 Estimated GFR 50 ml/min 04/05/22 03:25 BUN/Creatinine Ratio 19 % 04/05/22 03:25 Glucose 99 mg/dL (75-100) 04/05/22 03:25 POC Glucose 98 mg/dL (70-105) 04/05/22 03:54 Hemoglobin A1c 5.2 % (4-6) 04/05/22 03:25 Calcium 9.8 mg/dL (8.4-10.2) 04/05/22 03:25 Total Bilirubin 0.30 mg/dL (0.1-1.2) 04/05/22 03:25 AST 28 units/L (5-40) 04/05/22 03:25 ALT 25 units/L (7-56) 04/05/22 03:25 Alkaline Phosphatase 52 units/L (35-129) 04/05/22 03:25 Total Protein 6.7 g/dL (6.3-8.2) 04/05/22 03:25 Albumin 3.9 g/dL (3.9-5) 04/05/22 03:25 Albumin/Globulin Ratio 1.4 % 04/05/22 03:25 Triglycerides 62 mg/dL (2-149) 04/05/22 03:25 Cholesterol 98 mg/dL (50-199) 04/05/22 03:25 LDL Cholesterol Direct 49 mg/dL (50-130) L 04/05/22 03:25 HDL Cholesterol 39 mg/dL (40-59) L 04/05/22 03:25 Cholesterol/HDL Ratio 2.51 % 04/05/22 03:25 TSH 2.600 mlU/mL (0.270-4.200) 04/05/22 03:25 Last Vital Signs Temp 98.1 F 04/19/22 06:55 Pulse 46 L 04/19/22 06:55 Resp 18 04/19/22 06:55 BP 105/72 04/19/22 06:55 Pulse Ox 98 04/19/22 06:55
[2022-04-19] MEDS: IBUPROFEN 200 MG TAB PO SCH (20:59)
[2022-04-19] MEDS: ASPIRIN EC 81 MG TAB PO SCH (21:00)
[2022-04-20] MEDS: LEVOTHYROXINE 50 MCG TAB PO SCH (05:35)
[2022-04-20] MEDS: valACYclovir 500 MG TAB PO SCH ×2 (09:14→21:52)
[2022-04-20] MEDS: DOCUSATE SODIUM 100 MG CAP PO SCH ×2 (09:14→21:51)
[2022-04-20] MEDS: LOSARTAN 50 MG TAB PO SCH (09:14)
[2022-04-20] MEDS: CLOPIDOGREL 75 MG TAB PO SCH (09:14)
[2022-04-20] MEDS: DIVALPROEX DR 125 MG TAB PO SCH ×2 (09:17→21:51)
[2022-04-20] MEDS: risperiDONE 0.25 MG TAB PO SCH ×3 (09:17→21:51)
--- NOTE | 2022-04-20 10:11 | Progress Note ---
Subjective Date of service: 04/20/22 Principal diagnosis: Delusional Disorder Subjective Comment: Subjective Subjective Comment: Date of service: 04/20/22 Principal diagnosis: Delusional Disorder Subjective Comment: Patient seen in his room. Patient states that he is doing well and slept good. Patient states that he is ready to leave and wants Liliana can get him his cheque book. Patient continues to refuse all his antipsychotic medications, and denies any SI/HI at this time. Possible discharge tomorrow. Date of service: 04/19/22 Principal diagnosis: Delusional Disorder Subjective Comment: Patient seen in his room. Patient states that he is doing well. Patient states thta he is ready to leave and the only voices he wants to hear is Liliana's own, that is helping with his housing situation. Patient still refusing all his antipsychotic medications, and denies any SI/HI at this time. Date of service: 04/18/22 Principal diagnosis: Delusional Disorder Subjective Comment: Patient seen in his room. Patient states he is doing well. Patient still complaining of swollen foot and needing Lasix. Patient denies SI/HI/at this time. Patient also denies auditory and visual hallucination. Patient still waiting on placement. Date of service: 04/17/2022 Principal diagnosis: Delusional Disorder Subjective Comment: Patient seen today in the hallway. Patient getting anxious because his placement has not been sorted out. Patient states he would like to get his credit card so he can pay for his accommodation as he has no where to go otherwise. Patient denies any SI/HI at this time. Date of service: 04/16/2022 Principal diagnosis: Delusional Disorder Subjective Comment: Patient seen today in the day room. Patient states that his feet are swollen and may need lasix for the swelling. Patient was told that hospitalist will come talk to him and RN informed. Patient denies any SI/HI at this time. Date of service: 04/15/22 Principal diagnosis: Delusional Disorder Subjective Comment: Patient seen today . Patient calm and cooperative.Patient refusing to take his antipsychotics because he states he doesnt have any "mood issues". Patient is taking every other medication. Patient waiting on placement. Pt denies any SI/HI at this time. Date of service: 04/14/2022: Principal diagnosis: Delusional Disorder Subjective Comment: Patient seen today alert and able to communicate with me. Patient ok to go home from psych stand point, but waiting on placement.Patient denies any SI/HI at this time. 04/13/22 Principal diagnosis: Delusional Disorder Subjective Comment: The patient was seen today. He is in his room awake. He is calm and cooperative. He says he's doing pretty well. He denies SI/HI or hallucinations of any kind. 04/12 The patient was seen today. He is calm and cooperative. He is walking in the [place]. He says he's getting his exercise in. He asks for an ensure. The patient denies SI/HI or hallucinations of any kind. The patient will discharge tomorrow if night uneventful and has outpatient resources in place. 04/11 The patient was seen today. He says he is doing fine. The patient asked to speak to the about an assisted living. I informed him that I would inform the of his request. The patient denies SI/HI or hallucinations. The patient will discharge once outpatient resources are in place to ensure continuity of his mental wellness. 04/10 The patient was seen today. He says he is doing fair. He refers to himself as Dr. Vásquez. He denies SI/HI or hallucinations of any kind. 04/09 The patient was seen today. He says he is feeling fine. He refers to himself as "Dr. Vásquez." The patient denies SI/HI or hallucinations. He says he has not had a bowel movement in 4 days. 04/08 The patient was seen today. He is sitting in the dayroom. He is delusional. He is calm and cooperative. He introduces himself as "Dr. Vásquez." He denies SI/HI or hallucinations. REVIEW OF SYSTEMS Constitutional: Negative for weight loss ENT: Negative for stridor Respiratory: Negative for cough or hemoptysis All other systems reviewed and are negative MENTAL STATUS EXAMINATION General Appearance and Behavior: Age appropriate, wearing appropriate clothes, cooperative, polite with questioning, good eye contact Cooperation: cooperative Psychomotor Behavior: Psychomotor normal Mood: fair Affect and affective range: congruent with stated affect Thought Process: Circumstantial Thought Content: good Speech: Normal volume, Regular rate and rhythm Suicidal Ideation: Denies Homicidal Ideation: Denies Hallucination: Denies Delusions: No Impulse Control: Limited Insight and Judgment: Limited Memory: Intact Attention:attentive Orientation: Alert and oriented Diagnoses: Delusional Disorder Treatment Plan Patient cleared from psych stand point Patient provided with a safe and structured environment. Patient's physical health needs will be addressed by the Hospitalist. Hospitalist Consulted Labs including CBC, CMP, Lipid profile and Hemoglobin A1C levels ordered for baseline reference Social Assessment will be completed and the Director Veterinary will work with patient and family to ensure a suitable and safe disposition Medication adjustment will be made as clinically indicated The patient agreed on the treatment plan, understood the risk, benefit, alternative treatment, potential consequence of no treatment, and gave informed consent. Estimated days: 7 Post hospital care: primary care provider, psychiatric provider Case staffed with Dr. Torres Medications and Allergies Allergies Allergy/AdvReac Type Severity Reaction Status Date / Time Sulfa (Sulfonamide Allergy Vomiting Verified 04/05/22 01:32 Antibiotics) Home Medications Medication Instructions Recorded Confirmed Last Taken Type Aspirin [Vazalore] 81 mg PO DAILY 04/05/22 04/05/22 Unknown History AtorvaSTATin [Lipitor] 10 mg PO QHS 04/05/22 04/05/22 Unknown History Clopidogrel [Plavix] 75 mg PO QDAY 04/05/22 04/05/22 Unknown History Famciclovir [Famvir Tab] 500 mg PO Q12H 04/05/22 04/05/22 Unknown History Ibuprofen [Advil Migraine] 200 mg PO HS 04/05/22 04/05/22 Unknown History Levothyroxine [Synthroid] 50 mcg PO QAM 04/05/22 04/05/22 Unknown History Olmesartan Medoxomil [Benicar] 20 mg PO DAILY 04/05/22 04/05/22 Unknown History Active Meds: Active Medications Acetaminophen (Acetaminophen 325 Mg Tab) 650 mg PO Q6H PRN PRN Reason: Pain, Mild (1-3) Aspirin (Aspirin Ec 81 Mg Tab) 81 mg PO QHS [facility] Last Admin: 04/19/22 21:00 Dose: 81 mg Atorvastatin Calcium (Atorvastatin 10 Mg Tab) 10 mg PO QHS [facility] Last Admin: 04/19/22 21:00 Dose: 10 mg Clopidogrel Bisulfate (Clopidogrel 75 Mg Tab) 75 mg PO QDAY [facility] Last Admin: 04/20/22 09:14 Dose: 75 mg Divalproex Sodium (Divalproex Dr 125 Mg Tab) 125 mg PO BID [facility] Last Admin: 04/20/22 09:17 Dose: Not Given Docusate Sodium (Docusate Sodium 100 Mg Cap) 100 mg PO BID [facility] Last Admin: 04/20/22 09:14 Dose: 100 mg Ibuprofen (Ibuprofen 200 Mg Tab) 200 mg PO QHS [facility] Last Admin: 04/19/22 20:59 Dose: 200 mg Levothyroxine Sodium (Levothyroxine 50 Mcg Tab) 50 mcg PO DAILY@0600 [facility] Last Admin: 04/20/22 05:35 Dose: 50 mcg Losartan Potassium (Losartan 50 Mg Tab) 50 mg PO QDAY [facility] Last Admin: 04/20/22 09:14 Dose: Not Given Magnesium Hydroxide (Magnesium Hydroxide (Mom) Oral Liqd Udc) 30 ml PO Q4H PRN PRN Reason: Constipation Risperidone (Risperidone 0.25 Mg Tab) 0.5 mg PO TID [facility] Last Admin: 04/20/22 09:17 Dose: Not Given Valacyclovir HCl (Valacyclovir 500 Mg Tab) 500 mg PO BID [facility] Last Admin: 04/20/22 09:14 Dose: 500 mg Results - Results Labs/Vitals: Laboratory Last Values WBC 8.5 K/mm3 (4.5-11.0) 04/05/22 03:25 RBC 4.02 M/mm3 (3.65-5.03) 04/05/22 03:25 Hgb 13.9 gm/dl (11.8-15.2) 04/05/22 03:25 Hct 38.9 % (35.5-45.6) 04/05/22 03:25 MCV 97 fl (84-94) H 04/05/22 03:25 MCH 35 pg (28-32) H 04/05/22 03:25 MCHC 36 % (32-34) H 04/05/22 03:25 RDW 13.1 % (13.2-15.2) L 04/05/22 03:25 Plt Count 267 K/mm3 (140-440) 04/05/22 03:25 Lymph % (Auto) 20.2 % (13.4-35.0) 04/05/22 03:25 [place] % (Auto) 12.9 % (0.0-7.3) H 04/05/22 03:25 Eos % (Auto) 3.1 % (0.0-4.3) 04/05/22 03:25 Baso % (Auto) 0.6 % (0.0-1.8) 04/05/22 03:25 Lymph # (Auto) 1.7 K/mm3 (1.2-5.4) 04/05/22 03:25 [place] # (Auto) 1.1 K/mm3 (0.0-0.8) H 04/05/22 03:25 Eos # (Auto) 0.3 K/mm3 (0.0-0.4) 04/05/22 03:25 Baso # (Auto) 0.1 K/mm3 (0.0-0.1) 04/05/22 03:25 Seg Neutrophils % 63.2 % (40.0-70.0) 04/05/22 03:25 Seg Neutrophils # 5.4 K/mm3 (1.8-7.7) 04/05/22 03:25 Sodium 136 mmol/L (137-145) L 04/05/22 03:25 Potassium 4.3 mmol/L (3.6-5.0) 04/05/22 03:25 Chloride 96.9 mmol/L (98-107) L 04/05/22 03:25 Carbon Dioxide 28 mmol/L (22-30) 04/05/22 03:25 Anion Gap 15 mmol/L 04/05/22 03:25 BUN 26 mg/dL (9-20) H 04/05/22 03:25 Creatinine 1.4 mg/dL (0.8-1.3) H 04/05/22 03:25 Estimated GFR 50 ml/min 04/05/22 03:25 BUN/Creatinine Ratio 19 % 04/05/22 03:25 Glucose 99 mg/dL (75-100) 04/05/22 03:25 POC Glucose 98 mg/dL (70-105) 04/05/22 03:54 Hemoglobin A1c 5.2 % (4-6) 04/05/22 03:25 Calcium 9.8 mg/dL (8.4-10.2) 04/05/22 03:25 Total Bilirubin 0.30 mg/dL (0.1-1.2) 04/05/22 03:25 AST 28 units/L (5-40) 04/05/22 03:25 ALT 25 units/L (7-56) 04/05/22 03:25 Alkaline Phosphatase 52 units/L (35-129) 04/05/22 03:25 Total Protein 6.7 g/dL (6.3-8.2) 04/05/22 03:25 Albumin 3.9 g/dL (3.9-5) 04/05/22 03:25 Albumin/Globulin Ratio 1.4 % 04/05/22 03:25 Triglycerides 62 mg/dL (2-149) 04/05/22 03:25 Cholesterol 98 mg/dL (50-199) 04/05/22 03:25 LDL Cholesterol Direct 49 mg/dL (50-130) L 04/05/22 03:25 HDL Cholesterol 39 mg/dL (40-59) L 04/05/22 03:25 Cholesterol/HDL Ratio 2.51 % 04/05/22 03:25 TSH 2.600 mlU/mL (0.270-4.200) 04/05/22 03:25 Last Vital Signs Temp 97.4 F L 04/20/22 07:39 Pulse 48 L 04/20/22 09:14 Resp 16 04/20/22 07:39 BP 138/62 04/20/22 09:14 Pulse Ox 100 04/20/22 07:39
[2022-04-20] MEDS: ASPIRIN EC 81 MG TAB PO SCH (21:52)
[2022-04-20] MEDS: IBUPROFEN 200 MG TAB PO SCH (21:52)
[2022-04-21] MEDS: LEVOTHYROXINE 50 MCG TAB PO SCH (05:44)
[2022-04-21] MEDS: risperiDONE 0.25 MG TAB PO SCH ×3 (09:21→21:26)
[2022-04-21] MEDS: LOSARTAN 50 MG TAB PO SCH (09:21)
[2022-04-21] MEDS: CLOPIDOGREL 75 MG TAB PO SCH (09:21)
[2022-04-21] MEDS: valACYclovir 500 MG TAB PO SCH ×2 (09:21→21:25)
[2022-04-21] MEDS: DOCUSATE SODIUM 100 MG CAP PO SCH ×2 (09:21→21:24)
[2022-04-21] MEDS: DIVALPROEX DR 125 MG TAB PO SCH ×2 (09:22→21:26)
--- NOTE | 2022-04-21 10:13 | Progress Note ---
Subjective Date of service: 04/21/22 Principal diagnosis: Delusional Disorder Subjective Comment: The patient was seen today. He is calm, and cooperative. He denies SI/HI or hallucinations. The patient says he has been sleeping well and eating well He says he needs to speak with the SW about his discharge. The patient is a placement issues. I informed the SW of the patient's request. REVIEW OF SYSTEMS Constitutional: Negative for weight loss ENT: Negative for stridor Respiratory: Negative for cough or hemoptysis All other systems reviewed and are negative MENTAL STATUS EXAMINATION General Appearance and Behavior: Age appropriate, wearing appropriate clothes, cooperative, polite with questioning, good eye contact Cooperation: cooperative Psychomotor Behavior: Psychomotor normal Mood: good Affect and affective range: congruent with stated affect Thought Process: goal directed Thought Content: None Speech: Normal volume, Regular rate and rhythm Suicidal Ideation: Denies Homicidal Ideation: Denies Hallucination: Denies Delusions: None elicted Impulse Control: Limited Insight and Judgment: Limited Memory: Intact Attention:attentive Orientation: Alert and oriented Diagnoses: Delusional Disorder Treatment Plan Patient admitted for inpatient psychiatric evaluation, medication adjustment and close monitoring The patient's behavior, mood, sleep and appetite will be closely monitored. Patient enrolled in individual and group therapeutic sessions and encouraged to attend. Patient provided with a safe and structured environment. Patient's physical health needs will be addressed by the Hospitalist. Hospitalist Consulted Labs including CBC, CMP, Lipid profile and Hemoglobin A1C levels ordered for baseline reference Social Assessment will be completed and the Geology Technician will work with patient and family to ensure a suitable and safe disposition Medication adjustment will be made as clinically indicated No changes made today Usual Wellness Quaker/Preservation: - Start Trazodone 50 mg po QHS & 50 mg po QHS PRN between 10 PM & 2 AM for insomnia - Start Melatonin 5 mg po QHS to promote circadian rhythm The patient agreed on the treatment plan, understood the risk, benefit, alternative treatment, potential consequence of no treatment, and gave informed consent. Estimated days: 7 Post hospital care: primary care provider, psychiatric provider Case staffed with Dr. Torres Medications and Allergies Allergies Allergy/AdvReac Type Severity Reaction Status Date / Time Sulfa (Sulfonamide Allergy Vomiting Verified 04/05/22 01:32 Antibiotics) Home Medications Medication Instructions Recorded Confirmed Last Taken Type Aspirin [Vazalore] 81 mg PO DAILY 04/05/22 04/05/22 Unknown History AtorvaSTATin [Lipitor] 10 mg PO QHS 04/05/22 04/05/22 Unknown History Clopidogrel [Plavix] 75 mg PO QDAY 04/05/22 04/05/22 Unknown History Famciclovir [Famvir Tab] 500 mg PO Q12H 04/05/22 04/05/22 Unknown History Ibuprofen [Advil Migraine] 200 mg PO HS 04/05/22 04/05/22 Unknown History Levothyroxine [Synthroid] 50 mcg PO QAM 04/05/22 04/05/22 Unknown History Olmesartan Medoxomil [Benicar] 20 mg PO DAILY 04/05/22 04/05/22 Unknown History Active Meds: Active Medications Acetaminophen (Acetaminophen 325 Mg Tab) 650 mg PO Q6H PRN PRN Reason: Pain, Mild (1-3) Aspirin (Aspirin Ec 81 Mg Tab) 81 mg PO QHS [facility] Last Admin: 04/20/22 21:52 Dose: 81 mg Atorvastatin Calcium (Atorvastatin 10 Mg Tab) 10 mg PO QHS [facility] Last Admin: 04/20/22 21:51 Dose: 10 mg Clopidogrel Bisulfate (Clopidogrel 75 Mg Tab) 75 mg PO QDAY [facility] Last Admin: 04/21/22 09:21 Dose: 75 mg Divalproex Sodium (Divalproex Dr 125 Mg Tab) 125 mg PO BID [facility] Last Admin: 04/21/22 09:22 Dose: Not Given Docusate Sodium (Docusate Sodium 100 Mg Cap) 100 mg PO BID [facility] Last Admin: 04/21/22 09:21 Dose: 100 mg Ibuprofen (Ibuprofen 200 Mg Tab) 200 mg PO QHS [facility] Last Admin: 04/20/22 21:52 Dose: 200 mg Levothyroxine Sodium (Levothyroxine 50 Mcg Tab) 50 mcg PO DAILY@0600 [facility] Last Admin: 04/21/22 05:44 Dose: 50 mcg Losartan Potassium (Losartan 50 Mg Tab) 50 mg PO QDAY [facility] Last Admin: 04/21/22 09:21 Dose: 50 mg Magnesium Hydroxide (Magnesium Hydroxide (Mom) Oral Liqd Udc) 30 ml PO Q4H PRN PRN Reason: Constipation Risperidone (Risperidone 0.25 Mg Tab) 0.5 mg PO TID [facility] Last Admin: 04/21/22 09:21 Dose: Not Given Valacyclovir HCl (Valacyclovir 500 Mg Tab) 500 mg PO BID [facility] Last Admin: 04/21/22 09:21 Dose: 500 mg Results - Results Labs/Vitals: Laboratory Last Values WBC 8.5 K/mm3 (4.5-11.0) 04/05/22 03:25 RBC 4.02 M/mm3 (3.65-5.03) 04/05/22 03:25 Hgb 13.9 gm/dl (11.8-15.2) 04/05/22 03:25 Hct 38.9 % (35.5-45.6) 04/05/22 03:25 MCV 97 fl (84-94) H 04/05/22 03:25 MCH 35 pg (28-32) H 04/05/22 03:25 MCHC 36 % (32-34) H 04/05/22 03:25 RDW 13.1 % (13.2-15.2) L 04/05/22 03:25 Plt Count 267 K/mm3 (140-440) 04/05/22 03:25 Lymph % (Auto) 20.2 % (13.4-35.0) 04/05/22 03:25 [place] % (Auto) 12.9 % (0.0-7.3) H 04/05/22 03:25 Eos % (Auto) 3.1 % (0.0-4.3) 04/05/22 03:25 Baso % (Auto) 0.6 % (0.0-1.8) 04/05/22 03:25 Lymph # (Auto) 1.7 K/mm3 (1.2-5.4) 04/05/22 03:25 [place] # (Auto) 1.1 K/mm3 (0.0-0.8) H 04/05/22 03:25 Eos # (Auto) 0.3 K/mm3 (0.0-0.4) 04/05/22 03:25 Baso # (Auto) 0.1 K/mm3 (0.0-0.1) 04/05/22 03:25 Seg Neutrophils % 63.2 % (40.0-70.0) 04/05/22 03:25 Seg Neutrophils # 5.4 K/mm3 (1.8-7.7) 04/05/22 03:25 Sodium 136 mmol/L (137-145) L 04/05/22 03:25 Potassium 4.3 mmol/L (3.6-5.0) 04/05/22 03:25 Chloride 96.9 mmol/L (98-107) L 04/05/22 03:25 Carbon Dioxide 28 mmol/L (22-30) 04/05/22 03:25 Anion Gap 15 mmol/L 04/05/22 03:25 BUN 26 mg/dL (9-20) H 04/05/22 03:25 Creatinine 1.4 mg/dL (0.8-1.3) H 04/05/22 03:25 Estimated GFR 50 ml/min 04/05/22 03:25 BUN/Creatinine Ratio 19 % 04/05/22 03:25 Glucose 99 mg/dL (75-100) 04/05/22 03:25 POC Glucose 98 mg/dL (70-105) 04/05/22 03:54 Hemoglobin A1c 5.2 % (4-6) 04/05/22 03:25 Calcium 9.8 mg/dL (8.4-10.2) 04/05/22 03:25 Total Bilirubin 0.30 mg/dL (0.1-1.2) 04/05/22 03:25 AST 28 units/L (5-40) 04/05/22 03:25 ALT 25 units/L (7-56) 04/05/22 03:25 Alkaline Phosphatase 52 units/L (35-129) 04/05/22 03:25 Total Protein 6.7 g/dL (6.3-8.2) 04/05/22 03:25 Albumin 3.9 g/dL (3.9-5) 04/05/22 03:25 Albumin/Globulin Ratio 1.4 % 04/05/22 03:25 Triglycerides 62 mg/dL (2-149) 04/05/22 03:25 Cholesterol 98 mg/dL (50-199) 04/05/22 03:25 LDL Cholesterol Direct 49 mg/dL (50-130) L 04/05/22 03:25 HDL Cholesterol 39 mg/dL (40-59) L 04/05/22 03:25 Cholesterol/HDL Ratio 2.51 % 04/05/22 03:25 TSH 2.600 mlU/mL (0.270-4.200) 04/05/22 03:25 Last Vital Signs Temp 97.8 F 04/21/22 09:14 Pulse 54 L 04/21/22 09:14 Resp 16 04/21/22 09:14 BP 153/71 04/21/22 09:21 Pulse Ox 100 04/21/22 09:14
--- NOTE | 2022-04-21 20:24 | Progress Note ---
Assessment and Plan Assessment and plan: 71 YO Male with Vascular Dementia with Behavioral Disturbance, Cerebral Atherosclerosis, HTN, CAD on DAPT, Hypothyroidism, Delusional Disorder admitted to [facility] psych unit for psychiatric stabilization. Consult placed by Dr. Jorge for medical management. Patient seen and evaluated in the recreation room. Patient resting calmly. Patient appears to be at baseline level of cognition and function. (1) Delusional disorder Current Visit: Yes Status: Acute Plan to address problem: Continue medical management, supportive care, behavior change counseling (2) Vascular dementia with behavioral disturbance Current Visit: Yes Status: Acute Plan to address problem: Verbal prompting, verbal redirection, benzodiazepine therapy as clinically indicated. (3) Cerebral atherosclerosis Current Visit: Yes Status: Acute Plan to address problem: Risk factor reduction, antiplatelet therapy as clinically indicated. (4) Hypothyroidism Current Visit: Yes Status: Acute Plan to address problem: Continue Synthroid therapy, supportive care. (5) Hypertension Current Visit: Yes Status: Acute Qualifiers: Hypertension type: primary hypertension Qualified Code(s): I10 - Essential (primary) hypertension Plan to address problem: Monitor blood pressure every shift, continue medical management. -- Recommend Evaluation by case management for placement History Interval history: Patient seen and examined. Medical records and medication list reviewed. No acute event overnight noted by the RN. Patient denies any chest pain or difficulty breathing. Patient is tolerating diet. Patient states that he needs placement on discharge Hospitalist Physical - Physical exam Narrative exam: General appearance: Present: no acute distress - EENT Eyes: Present: PERRL ENT: hearing decreased - Neck Neck: Present: supple - Respiratory Respiratory effort: normal Respiratory: bilateral: diminished - Cardiovascular Rhythm: regular Heart Sounds: Present: S1 & S2 - Extremities Extremities: no ischemia Peripheral Pulses: within normal limits - Abdominal General gastrointestinal: soft, non-tender, non-distended - Integumentary Integumentary: Present: clear, dry - Psychiatric Psychiatric: cooperative - Neurologic Neurologic: CNII-XII intact - Constitutional Vitals: Temp Pulse Resp BP Pulse Ox 97.4 F L 54 L 16 143/61 98 04/21/22 18:04 04/21/22 18:04 04/21/22 18:04 04/21/22 18:04 04/21/22 18:04 General appearance: Present: no acute distress Results - Labs CBC & Chem 7: 04/05/22 03:25 04/05/22 03:25 Labs: Laboratory Last Values WBC 8.5 K/mm3 (4.5-11.0) 04/05/22 03:25 RBC 4.02 M/mm3 (3.65-5.03) 04/05/22 03:25 Hgb 13.9 gm/dl (11.8-15.2) 04/05/22 03:25 Hct 38.9 % (35.5-45.6) 04/05/22 03:25 MCV 97 fl (84-94) H 04/05/22 03:25 MCH 35 pg (28-32) H 04/05/22 03:25 MCHC 36 % (32-34) H 04/05/22 03:25 RDW 13.1 % (13.2-15.2) L 04/05/22 03:25 Plt Count 267 K/mm3 (140-440) 04/05/22 03:25 Lymph % (Auto) 20.2 % (13.4-35.0) 04/05/22 03:25 [place] % (Auto) 12.9 % (0.0-7.3) H 04/05/22 03:25 Eos % (Auto) 3.1 % (0.0-4.3) 04/05/22 03:25 Baso % (Auto) 0.6 % (0.0-1.8) 04/05/22 03:25 Lymph # (Auto) 1.7 K/mm3 (1.2-5.4) 04/05/22 03:25 [place] # (Auto) 1.1 K/mm3 (0.0-0.8) H 04/05/22 03:25 Eos # (Auto) 0.3 K/mm3 (0.0-0.4) 04/05/22 03:25 Baso # (Auto) 0.1 K/mm3 (0.0-0.1) 04/05/22 03:25 Seg Neutrophils % 63.2 % (40.0-70.0) 04/05/22 03:25 Seg Neutrophils # 5.4 K/mm3 (1.8-7.7) 04/05/22 03:25 Sodium 136 mmol/L (137-145) L 04/05/22 03:25 Potassium 4.3 mmol/L (3.6-5.0) 04/05/22 03:25 Chloride 96.9 mmol/L (98-107) L 04/05/22 03:25 Carbon Dioxide 28 mmol/L (22-30) 04/05/22 03:25 Anion Gap 15 mmol/L 04/05/22 03:25 BUN 26 mg/dL (9-20) H 04/05/22 03:25 Creatinine 1.4 mg/dL (0.8-1.3) H 04/05/22 03:25 Estimated GFR 50 ml/min 04/05/22 03:25 BUN/Creatinine Ratio 19 % 04/05/22 03:25 Glucose 99 mg/dL (75-100) 04/05/22 03:25 POC Glucose 98 mg/dL (70-105) 04/05/22 03:54 Hemoglobin A1c 5.2 % (4-6) 04/05/22 03:25 Calcium 9.8 mg/dL (8.4-10.2) 04/05/22 03:25 Total Bilirubin 0.30 mg/dL (0.1-1.2) 04/05/22 03:25 AST 28 units/L (5-40) 04/05/22 03:25 ALT 25 units/L (7-56) 04/05/22 03:25 Alkaline Phosphatase 52 units/L (35-129) 04/05/22 03:25 Total Protein 6.7 g/dL (6.3-8.2) 04/05/22 03:25 Albumin 3.9 g/dL (3.9-5) 04/05/22 03:25 Albumin/Globulin Ratio 1.4 % 04/05/22 03:25 Triglycerides 62 mg/dL (2-149) 04/05/22 03:25 Cholesterol 98 mg/dL (50-199) 04/05/22 03:25 LDL Cholesterol Direct 49 mg/dL (50-130) L 04/05/22 03:25 HDL Cholesterol 39 mg/dL (40-59) L 04/05/22 03:25 Cholesterol/HDL Ratio 2.51 % 04/05/22 03:25 TSH 2.600 mlU/mL (0.270-4.200) 04/05/22 03:25 Ascencio/IV: Voiding Method Toilet Active Medications - Current Medications Current Medications: Generic Name Dose Route Start Last Admin Trade Name Freq PRN Reason Stop Dose Admin Acetaminophen 650 mg 04/08/22 21:13 Acetaminophen 325 Mg Tab PO Q6H PRN Pain, Mild (1-3) Aspirin 81 mg 04/13/22 22:00 04/20/22 21:52 Aspirin Ec 81 Mg Tab PO 81 mg QHS JOHNIE Administration Atorvastatin Calcium 10 mg 04/05/22 22:00 04/20/22 21:51 Atorvastatin 10 Mg Tab PO 10 mg QHS JOHNIE Administration Clopidogrel Bisulfate 75 mg 04/05/22 10:00 04/21/22 09:21 Clopidogrel 75 Mg Tab PO 75 mg QDAY JOHNIE Administration Divalproex Sodium 125 mg 04/06/22 12:00 04/21/22 09:[address] 125 Mg Tab PO Not Given BID JOHNIE Docusate Sodium 100 mg 04/09/22 10:00 04/21/22 09:21 Docusate Sodium 100 Mg Cap PO 100 mg BID JOHNIE Administration Ibuprofen 200 mg 04/05/22 22:00 04/20/22 21:52 Ibuprofen 200 Mg Tab PO 200 mg QHS JOHNIE Administration Levothyroxine Sodium 50 mcg 04/05/22 10:00 04/21/22 05:44 Levothyroxine 50 Mcg Tab PO 50 mcg DAILY@0600 [facility] Administration Losartan Potassium 50 mg 04/05/22 10:00 04/21/22 09:21 Losartan 50 Mg Tab PO 50 mg QDAY JOHNIE Administration Magnesium Hydroxide 30 ml 04/09/22 09:35 Magnesium Hydroxide (Mom) Oral Liqd Udc PO Q4H PRN Constipation Risperidone 0.5 mg 04/07/22 10:00 04/21/22 14:07 Risperidone 0.25 Mg Tab PO Not Given TID JOHNIE Valacyclovir HCl 500 mg 04/08/22 10:00 04/21/22 09:21 Valacyclovir 500 Mg Tab PO 500 mg BID JOHNIE Administration Nutrition/Malnutrition Assess - Dietary Evaluation Nutrition/Malnutrition Findings: Nutrition Notes Start: 04/13/22 18:02 Freq: Status: Active Protocol: Document 04/13/22 18:02 HEIDI (Rec: 04/13/22 18:15 HEIDI [id number]) Nutrition Notes Need for Assessment generated from: LOS Initial or Follow up Assessment Current Diagnosis Coronary Artery Disease, Hypertension,Hyperlipidemia Other Pertinent Diagnosis CHF, Hypothyroidism, Paranoia & Delusions. Current Diet Cardiac Diet (since B 04/07). Labs/Tests 04/13: Na 136, Cl 96.9, BUN 26 , Crea 1.4. Pertinent Medications 04/13: Levothyroxine, others nutritionally unremarkable. 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 Weight Status Appropriate Subjective/Other Information RD consult for LOS assessment. Pt's PO intake of meals has been Good (100%) and well tolerated, according to ADL notes. Pt is on Room Air, O2 saturation @ 100%, according to Vital Signs notes. Percent of energy/protein needs met: Prescribed Cardiac Diet provides for energy/protein needs (2,230 Kcal/85 g) during LOS. Burn Absent Trauma Absent GI Symptoms None Food Allergy No Skin Integrity/Comment Assessment WNL. Current % PO Good (75-100%) Minimum of two criteria No Fluid Accumulation N/A Reduced Enchilada Maker Strength N/A (non-severe) Protein-Calorie Malnutrition N\A #1 Nutrition Diagnosis No nutrition diagnosis at this time Is patient on ventilator? No Is Patient Ambulatory and/or Out of Bed Yes REE-([facility]-ambulatory/OOB) [ 2158.923 [id number]] Calculation Used for Recommendations [facility] Additional Notes Protein: 1-1.2 g/Kg ABW; 86- 103 g/day. Fluids: 1 ml/Kcal, or as per MD. Nutrition Intervention Change Diet Order: Continue Cardiac Diet. Revisit per MD consult or patient Sign Off request: Additional Comments Continue monitoring food tolerance, %PO intake of meals , and BM.
[2022-04-21] MEDS: IBUPROFEN 200 MG TAB PO SCH (21:25)
[2022-04-21] MEDS: ASPIRIN EC 81 MG TAB PO SCH (21:25)
[2022-04-22] MEDS: LEVOTHYROXINE 50 MCG TAB PO SCH (07:01)
[2022-04-22] MEDS: DOCUSATE SODIUM 100 MG CAP PO SCH ×2 (09:11→21:27)
[2022-04-22] MEDS: DIVALPROEX DR 125 MG TAB PO SCH ×2 (09:11→21:27)
[2022-04-22] MEDS: valACYclovir 500 MG TAB PO SCH ×2 (09:11→21:27)
[2022-04-22] MEDS: CLOPIDOGREL 75 MG TAB PO SCH (09:12)
[2022-04-22] MEDS: LOSARTAN 50 MG TAB PO SCH (09:12)
[2022-04-22] MEDS: risperiDONE 0.25 MG TAB PO SCH ×3 (09:13→21:26)
--- NOTE | 2022-04-22 09:17 | Progress Note ---
Subjective Date of service: 04/22/22 Principal diagnosis: Delusional Disorder Subjective Comment: The patient was seen today. He is calm, and cooperative. He denies SI/HI or hallucinations. He says he is ready to go home and feels mentally stable. REVIEW OF SYSTEMS Constitutional: Negative for weight loss ENT: Negative for stridor Respiratory: Negative for cough or hemoptysis All other systems reviewed and are negative MENTAL STATUS EXAMINATION General Appearance and Behavior: Age appropriate, wearing appropriate clothes, cooperative, polite with questioning, good eye contact Cooperation: cooperative Psychomotor Behavior: Psychomotor normal Mood: good Affect and affective range: congruent with stated affect Thought Process: goal directed Thought Content: None Speech: Normal volume, Regular rate and rhythm Suicidal Ideation: Denies Homicidal Ideation: Denies Hallucination: Denies Delusions: None elicted Impulse Control: Limited Insight and Judgment: Limited Memory: Intact Attention:attentive Orientation: Alert and oriented Diagnoses: Delusional Disorder Treatment Plan Patient admitted for inpatient psychiatric evaluation, medication adjustment and close monitoring The patient's behavior, mood, sleep and appetite will be closely monitored. Patient enrolled in individual and group therapeutic sessions and encouraged to attend. Patient provided with a safe and structured environment. Patient's physical health needs will be addressed by the Hospitalist. Hospitalist Consulted Labs including CBC, CMP, Lipid profile and Hemoglobin A1C levels ordered for baseline reference Social Assessment will be completed and the Drywall Hanger Helper will work with patient and family to ensure a suitable and safe disposition Medication adjustment will be made as clinically indicated No changes made today Usual Wellness Mosque/Preservation: - Start Trazodone 50 mg po QHS & 50 mg po QHS PRN between 10 PM & 2 AM for insomnia - Start Melatonin 5 mg po QHS to promote circadian rhythm The patient agreed on the treatment plan, understood the risk, benefit, alternative treatment, potential consequence of no treatment, and gave informed consent. Estimated days: 7 Post hospital care: primary care provider, psychiatric provider Case staffed with Dr. Torres Medications and Allergies Allergies Allergy/AdvReac Type Severity Reaction Status Date / Time Sulfa (Sulfonamide Allergy Vomiting Verified 04/05/22 01:32 Antibiotics) Home Medications Medication Instructions Recorded Confirmed Last Taken Type Aspirin [Vazalore] 81 mg PO DAILY 04/05/22 04/05/22 Unknown History AtorvaSTATin [Lipitor] 10 mg PO QHS 04/05/22 04/05/22 Unknown History Clopidogrel [Plavix] 75 mg PO QDAY 04/05/22 04/05/22 Unknown History Famciclovir [Famvir Tab] 500 mg PO Q12H 04/05/22 04/05/22 Unknown History Ibuprofen [Advil Migraine] 200 mg PO HS 04/05/22 04/05/22 Unknown History Levothyroxine [Synthroid] 50 mcg PO QAM 04/05/22 04/05/22 Unknown History Olmesartan Medoxomil [Benicar] 20 mg PO DAILY 04/05/22 04/05/22 Unknown History Active Meds: Active Medications Acetaminophen (Acetaminophen 325 Mg Tab) 650 mg PO Q6H PRN PRN Reason: Pain, Mild (1-3) Aspirin (Aspirin Ec 81 Mg Tab) 81 mg PO QHS [facility] Last Admin: 04/21/22 21:25 Dose: 81 mg Atorvastatin Calcium (Atorvastatin 10 Mg Tab) 10 mg PO QHS [facility] Last Admin: 04/21/22 21:24 Dose: 10 mg Clopidogrel Bisulfate (Clopidogrel 75 Mg Tab) 75 mg PO QDAY [facility] Last Admin: 04/22/22 09:12 Dose: 75 mg Divalproex Sodium (Divalproex Dr 125 Mg Tab) 125 mg PO BID [facility] Last Admin: 04/22/22 09:11 Dose: Not Given Docusate Sodium (Docusate Sodium 100 Mg Cap) 100 mg PO BID [facility] Last Admin: 04/22/22 09:11 Dose: 100 mg Ibuprofen (Ibuprofen 200 Mg Tab) 200 mg PO QHS [facility] Last Admin: 04/21/22 21:25 Dose: 200 mg Levothyroxine Sodium (Levothyroxine 50 Mcg Tab) 50 mcg PO DAILY@0600 [facility] Last Admin: 04/22/22 07:01 Dose: 50 mcg Losartan Potassium (Losartan 50 Mg Tab) 50 mg PO QDAY [facility] Last Admin: 04/22/22 09:12 Dose: 50 mg Magnesium Hydroxide (Magnesium Hydroxide (Mom) Oral Liqd Udc) 30 ml PO Q4H PRN PRN Reason: Constipation Risperidone (Risperidone 0.25 Mg Tab) 0.5 mg PO TID [facility] Last Admin: 04/22/22 09:13 Dose: Not Given Valacyclovir HCl (Valacyclovir 500 Mg Tab) 500 mg PO BID [facility] Last Admin: 04/22/22 09:11 Dose: 500 mg Results - Results Labs/Vitals: Laboratory Last Values WBC 8.5 K/mm3 (4.5-11.0) 04/05/22 03:25 RBC 4.02 M/mm3 (3.65-5.03) 04/05/22 03:25 Hgb 13.9 gm/dl (11.8-15.2) 04/05/22 03:25 Hct 38.9 % (35.5-45.6) 04/05/22 03:25 MCV 97 fl (84-94) H 04/05/22 03:25 MCH 35 pg (28-32) H 04/05/22 03:25 MCHC 36 % (32-34) H 04/05/22 03:25 RDW 13.1 % (13.2-15.2) L 04/05/22 03:25 Plt Count 267 K/mm3 (140-440) 04/05/22 03:25 Lymph % (Auto) 20.2 % (13.4-35.0) 04/05/22 03:25 [place] % (Auto) 12.9 % (0.0-7.3) H 04/05/22 03:25 Eos % (Auto) 3.1 % (0.0-4.3) 04/05/22 03:25 Baso % (Auto) 0.6 % (0.0-1.8) 04/05/22 03:25 Lymph # (Auto) 1.7 K/mm3 (1.2-5.4) 04/05/22 03:25 [place] # (Auto) 1.1 K/mm3 (0.0-0.8) H 04/05/22 03:25 Eos # (Auto) 0.3 K/mm3 (0.0-0.4) 04/05/22 03:25 Baso # (Auto) 0.1 K/mm3 (0.0-0.1) 04/05/22 03:25 Seg Neutrophils % 63.2 % (40.0-70.0) 04/05/22 03:25 Seg Neutrophils # 5.4 K/mm3 (1.8-7.7) 04/05/22 03:25 Sodium 136 mmol/L (137-145) L 04/05/22 03:25 Potassium 4.3 mmol/L (3.6-5.0) 04/05/22 03:25 Chloride 96.9 mmol/L (98-107) L 04/05/22 03:25 Carbon Dioxide 28 mmol/L (22-30) 04/05/22 03:25 Anion Gap 15 mmol/L 04/05/22 03:25 BUN 26 mg/dL (9-20) H 04/05/22 03:25 Creatinine 1.4 mg/dL (0.8-1.3) H 04/05/22 03:25 Estimated GFR 50 ml/min 04/05/22 03:25 BUN/Creatinine Ratio 19 % 04/05/22 03:25 Glucose 99 mg/dL (75-100) 04/05/22 03:25 POC Glucose 98 mg/dL (70-105) 04/05/22 03:54 Hemoglobin A1c 5.2 % (4-6) 04/05/22 03:25 Calcium 9.8 mg/dL (8.4-10.2) 04/05/22 03:25 Total Bilirubin 0.30 mg/dL (0.1-1.2) 04/05/22 03:25 AST 28 units/L (5-40) 04/05/22 03:25 ALT 25 units/L (7-56) 04/05/22 03:25 Alkaline Phosphatase 52 units/L (35-129) 04/05/22 03:25 Total Protein 6.7 g/dL (6.3-8.2) 04/05/22 03:25 Albumin 3.9 g/dL (3.9-5) 04/05/22 03:25 Albumin/Globulin Ratio 1.4 % 04/05/22 03:25 Triglycerides 62 mg/dL (2-149) 04/05/22 03:25 Cholesterol 98 mg/dL (50-199) 04/05/22 03:25 LDL Cholesterol Direct 49 mg/dL (50-130) L 04/05/22 03:25 HDL Cholesterol 39 mg/dL (40-59) L 04/05/22 03:25 Cholesterol/HDL Ratio 2.51 % 04/05/22 03:25 TSH 2.600 mlU/mL (0.270-4.200) 04/05/22 03:25 Last Vital Signs Temp 97.4 F L 07/15/22 18:04 Pulse 70 04/22/22 09:12 Resp 16 04/21/22 18:04 BP 144/80 04/22/22 09:12 Pulse Ox 98 04/21/22 18:04
[2022-04-22 11:24] LABS: BUN/Creatinine Ratio 19; Blood Urea Nitrogen 19 mg/dL (9-20); Calcium 9.9 mg/dL (8.4-10.2); Hemolysis Index 4
[2022-04-22] MEDS: ASPIRIN EC 81 MG TAB PO SCH (21:27)
[2022-04-22] MEDS: IBUPROFEN 200 MG TAB PO SCH (21:28)
[2022-04-23] MEDS: LEVOTHYROXINE 50 MCG TAB PO SCH (06:21)
--- NOTE | 2022-04-23 08:39 | Progress Note ---
Subjective Date of service: 04/23/22 Principal diagnosis: Delusional Disorder Subjective Comment: The patient was seen today. He is calm, and cooperative. He is walking in his room. He denies SI/HI or hallucinations. He says he's anxious about tomorrow because he doesn't want anything to keep him from going home. The patient will discharge tomorrow if no events throughout the night. REVIEW OF SYSTEMS Constitutional: Negative for weight loss ENT: Negative for stridor Respiratory: Negative for cough or hemoptysis All other systems reviewed and are negative MENTAL STATUS EXAMINATION General Appearance and Behavior: Age appropriate, wearing appropriate clothes, cooperative, polite with questioning, good eye contact Cooperation: cooperative Psychomotor Behavior: Psychomotor normal Mood: good Affect and affective range: congruent with stated affect Thought Process: goal directed Thought Content: None Speech: Normal volume, Regular rate and rhythm Suicidal Ideation: Denies Homicidal Ideation: Denies Hallucination: Denies Delusions: None elicted Impulse Control: Limited Insight and Judgment: Limited Memory: Intact Attention:attentive Orientation: Alert and oriented Diagnoses: Delusional Disorder Treatment Plan Patient admitted for inpatient psychiatric evaluation, medication adjustment and close monitoring The patient's behavior, mood, sleep and appetite will be closely monitored. Patient enrolled in individual and group therapeutic sessions and encouraged to attend. Patient provided with a safe and structured environment. Patient's physical health needs will be addressed by the Hospitalist. Hospitalist Consulted Labs including CBC, CMP, Lipid profile and Hemoglobin A1C levels ordered for baseline reference Social Assessment will be completed and the Braille Teacher will work with patient and family to ensure a suitable and safe disposition Medication adjustment will be made as clinically indicated No changes made today Usual Wellness Congregation/Preservation: - Start Trazodone 50 mg po QHS & 50 mg po QHS PRN between 10 PM & 2 AM for insomnia - Start Melatonin 5 mg po QHS to promote circadian rhythm The patient agreed on the treatment plan, understood the risk, benefit, alternative treatment, potential consequence of no treatment, and gave informed consent. Estimated days: 7 Post hospital care: primary care provider, psychiatric provider Case staffed with Dr. Torres Medications and Allergies Allergies Allergy/AdvReac Type Severity Reaction Status Date / Time Sulfa (Sulfonamide Allergy Vomiting Verified 04/05/22 01:32 Antibiotics) Home Medications Medication Instructions Recorded Confirmed Last Taken Type Aspirin [Vaz[place]] 81 mg PO DAILY 04/05/22 04/05/22 Unknown History AtorvaSTATin [Lipitor] 10 mg PO QHS 04/05/22 04/05/22 Unknown History Clopidogrel [Plavix] 75 mg PO QDAY 04/05/22 04/05/22 Unknown History Famciclovir [Famvir Tab] 500 mg PO Q12H 04/05/22 04/05/22 Unknown History Ibuprofen [Advil Migraine] 200 mg PO HS 04/05/22 04/05/22 Unknown History Levothyroxine [Synthroid] 50 mcg PO QAM 04/05/22 04/05/22 Unknown History Olmesartan Medoxomil [Benicar] 20 mg PO DAILY 04/05/22 04/05/22 Unknown History Active Meds: Active Medications Acetaminophen (Acetaminophen 325 Mg Tab) 650 mg PO Q6H PRN PRN Reason: Pain, Mild (1-3) Aspirin (Aspirin Ec 81 Mg Tab) 81 mg PO QHS [facility] Last Admin: 04/22/22 21:27 Dose: 81 mg Atorvastatin Calcium (Atorvastatin 10 Mg Tab) 10 mg PO QHS [facility] Last Admin: 04/22/22 21:27 Dose: 10 mg Clopidogrel Bisulfate (Clopidogrel 75 Mg Tab) 75 mg PO QDAY [facility] Last Admin: 04/22/22 09:12 Dose: 75 mg Divalproex Sodium (Divalproex Dr 125 Mg Tab) 125 mg PO BID [facility] Last Admin: 04/22/22 21:27 Dose: Not Given Docusate Sodium (Docusate Sodium 100 Mg Cap) 100 mg PO BID [facility] Last Admin: 04/22/22 21:27 Dose: 100 mg Ibuprofen (Ibuprofen 200 Mg Tab) 200 mg PO QHS [facility] Last Admin: 04/22/22 21:28 Dose: 200 mg Levothyroxine Sodium (Levothyroxine 50 Mcg Tab) 50 mcg PO DAILY@0600 [facility] Last Admin: 04/23/22 06:21 Dose: 50 mcg Losartan Potassium (Losartan 50 Mg Tab) 50 mg PO QDAY [facility] Last Admin: 04/22/22 09:12 Dose: 50 mg Magnesium Hydroxide (Magnesium Hydroxide (Mom) Oral Liqd Udc) 30 ml PO Q4H PRN PRN Reason: Constipation Risperidone (Risperidone 0.25 Mg Tab) 0.5 mg PO TID [facility] Last Admin: 04/22/22 21:26 Dose: Not Given Valacyclovir HCl (Valacyclovir 500 Mg Tab) 500 mg PO BID [facility] Last Admin: 04/22/22 21:27 Dose: 500 mg Results - Results Labs/Vitals: Laboratory Last Values WBC 8.5 K/mm3 (4.5-11.0) 04/05/22 03:25 RBC 4.02 M/mm3 (3.65-5.03) 04/05/22 03:25 Hgb 13.9 gm/dl (11.8-15.2) 04/05/22 03:25 Hct 38.9 % (35.5-45.6) 04/05/22 03:25 MCV 97 fl (84-94) H 04/05/22 03:25 MCH 35 pg (28-32) H 04/05/22 03:25 MCHC 36 % (32-34) H 04/05/22 03:25 RDW 13.1 % (13.2-15.2) L 04/05/22 03:25 Plt Count 267 K/mm3 (140-440) 04/05/22 03:25 Lymph % (Auto) 20.2 % (13.4-35.0) 04/05/22 03:25 [place] % (Auto) 12.9 % (0.0-7.3) H 04/05/22 03:25 Eos % (Auto) 3.1 % (0.0-4.3) 04/05/22 03:25 Baso % (Auto) 0.6 % (0.0-1.8) 04/05/22 03:25 Lymph # (Auto) 1.7 K/mm3 (1.2-5.4) 04/05/22 03:25 [place] # (Auto) 1.1 K/mm3 (0.0-0.8) H 04/05/22 03:25 Eos # (Auto) 0.3 K/mm3 (0.0-0.4) 04/05/22 03:25 Baso # (Auto) 0.1 K/mm3 (0.0-0.1) 04/05/22 03:25 Seg Neutrophils % 63.2 % (40.0-70.0) 04/05/22 03:25 Seg Neutrophils # 5.4 K/mm3 (1.8-7.7) 04/05/22 03:25 Sodium 142 mmol/L (137-145) 04/22/22 09:45 Potassium 4.2 mmol/L (3.6-5.0) 04/22/22 09:45 Chloride 102.7 mmol/L (98-107) 04/22/22 09:45 Carbon Dioxide 26 mmol/L (22-30) 04/22/22 09:45 Anion Gap 18 mmol/L 04/22/22 09:45 BUN 19 mg/dL (9-20) 04/22/22 09:45 Creatinine 1.0 mg/dL (0.8-1.3) 04/22/22 09:45 Estimated GFR > 60 ml/min 04/22/22 09:45 BUN/Creatinine Ratio 19 % 04/22/22 09:45 Glucose 68 mg/dL (75-100) L 04/22/22 09:45 POC Glucose 98 mg/dL (70-105) 04/05/22 03:54 Hemoglobin A1c 5.2 % (4-6) 04/05/22 03:25 Calcium 9.9 mg/dL (8.4-10.2) 04/22/22 09:45 Total Bilirubin 0.30 mg/dL (0.1-1.2) 04/05/22 03:25 AST 28 units/L (5-40) 04/05/22 03:25 ALT 25 units/L (7-56) 04/05/22 03:25 Alkaline Phosphatase 52 units/L (35-129) 04/05/22 03:25 Total Protein 6.7 g/dL (6.3-8.2) 04/05/22 03:25 Albumin 3.9 g/dL (3.9-5) 04/05/22 03:25 Albumin/Globulin Ratio 1.4 % 04/05/22 03:25 Triglycerides 62 mg/dL (2-149) 04/05/22 03:25 Cholesterol 98 mg/dL (50-199) 04/05/22 03:25 LDL Cholesterol Direct 49 mg/dL (50-130) L 04/05/22 03:25 HDL Cholesterol 39 mg/dL (40-59) L 04/05/22 03:25 Cholesterol/HDL Ratio 2.51 % 04/05/22 03:25 TSH 2.600 mlU/mL (0.270-4.200) 04/05/22 03:25 Last Vital Signs Temp 96.6 F L 04/22/22 20:48 Pulse 50 L 04/22/22 20:48 Resp 18 04/22/22 20:48 BP 159/77 04/22/22 20:48 Pulse Ox 100 04/22/22 20:48
[2022-04-23] MEDS: LOSARTAN 50 MG TAB PO SCH (09:05)
[2022-04-23] MEDS: DOCUSATE SODIUM 100 MG CAP PO SCH ×2 (09:05→21:14)
[2022-04-23] MEDS: CLOPIDOGREL 75 MG TAB PO SCH (09:06)
[2022-04-23] MEDS: risperiDONE 0.25 MG TAB PO SCH ×3 (09:06→21:14)
[2022-04-23] MEDS: valACYclovir 500 MG TAB PO SCH ×2 (09:06→21:15)
[2022-04-23] MEDS: DIVALPROEX DR 125 MG TAB PO SCH ×2 (09:06→21:15)
[2022-04-23] MEDS: IBUPROFEN 200 MG TAB PO SCH (21:15)
[2022-04-23] MEDS: ASPIRIN EC 81 MG TAB PO SCH (21:15)
[2022-04-24] MEDS: LEVOTHYROXINE 50 MCG TAB PO SCH (06:21)
[2022-04-24 09:22] VITALS: BP 166/72
[2022-04-24] MEDS: DOCUSATE SODIUM 100 MG CAP PO SCH (09:22)
[2022-04-24] MEDS: valACYclovir 500 MG TAB PO SCH (09:22)
[2022-04-24] MEDS: CLOPIDOGREL 75 MG TAB PO SCH (09:22)
[2022-04-24] MEDS: LOSARTAN 50 MG TAB PO SCH (09:22)
[2022-04-24] MEDS: DIVALPROEX DR 125 MG TAB PO SCH (09:32)
[2022-04-24] MEDS: risperiDONE 0.25 MG TAB PO SCH (09:32)
--- NOTE | 2022-04-24 09:46 | Discharge Summary ---
Providers - Providers Date of Admission: 04/05/22 02:50 Date of discharge: 04/24/22 Attending physician: MARCIO BAPTISTE MD 04/05/22 01:34 Consult to Physician [CONS] Routine Comment: Consulting Provider: JOSE MIGUEL RIVERA Physician Instructions: Ps manage conditions as per H&P. Reason For Exam: New admission Primary care physician: [employer] Hospitalization Reason for admission: delusional Condition: Stable Hospital course: The patient was provided inpatient psychiatric treatment with safe and supportiv e care, medication adjustment, adverse effect monitoring, medical evaluations, medical treatments, assessment and psycho-education. The patient's mood, cognition, behavior, moral support are improved and stabilized. St the time of discharge, the patient had no endangering behavior and no debilitating adverse effects. The patient agreed on potential consequences of no treatment and gave informed consent. Disposition: 01 HOME / SELF CARE / HOMELESS Time spent for discharge: 35 Allergies/Adverse Reactions: Allergies Sulfa (Sulfonamide Antibiotics) Allergy (Verified 04/05/22 01:32) Vomiting Vital Signs: Last Vital Signs Temp 98.3 F 04/24/22 08:42 Pulse 61 04/24/22 09:22 Resp 16 04/24/22 08:42 BP 166/72 04/24/22 09:22 Pulse Ox 100 04/24/22 08:42 Last Lab: Laboratory Last Values WBC 8.5 K/mm3 (4.5-11.0) 04/05/22 03:25 RBC 4.02 M/mm3 (3.65-5.03) 04/05/22 03:25 Hgb 13.9 gm/dl (11.8-15.2) 04/05/22 03:25 Hct 38.9 % (35.5-45.6) 04/05/22 03:25 MCV 97 fl (84-94) H 04/05/22 03:25 MCH 35 pg (28-32) H 04/05/22 03:25 MCHC 36 % (32-34) H 04/05/22 03:25 RDW 13.1 % (13.2-15.2) L 04/05/22 03:25 Plt Count 267 K/mm3 (140-440) 04/05/22 03:25 Lymph % (Auto) 20.2 % (13.4-35.0) 04/05/22 03:25 [place] % (Auto) 12.9 % (0.0-7.3) H 04/05/22 03:25 Eos % (Auto) 3.1 % (0.0-4.3) 04/05/22 03:25 Baso % (Auto) 0.6 % (0.0-1.8) 04/05/22 03:25 Lymph # (Auto) 1.7 K/mm3 (1.2-5.4) 04/05/22 03:25 [place] # (Auto) 1.1 K/mm3 (0.0-0.8) H 04/05/22 03:25 Eos # (Auto) 0.3 K/mm3 (0.0-0.4) 04/05/22 03:25 Baso # (Auto) 0.1 K/mm3 (0.0-0.1) 04/05/22 03:25 Seg Neutrophils % 63.2 % (40.0-70.0) 04/05/22 03:25 Seg Neutrophils # 5.4 K/mm3 (1.8-7.7) 04/05/22 03:25 Sodium 142 mmol/L (137-145) 04/22/22 09:45 Potassium 4.2 mmol/L (3.6-5.0) 04/22/22 09:45 Chloride 102.7 mmol/L (98-107) 04/22/22 09:45 Carbon Dioxide 26 mmol/L (22-30) 04/22/22 09:45 Anion Gap 18 mmol/L 04/22/22 09:45 BUN 19 mg/dL (9-20) 04/22/22 09:45 Creatinine 1.0 mg/dL (0.8-1.3) 04/22/22 09:45 Estimated GFR > 60 ml/min 04/22/22 09:45 BUN/Creatinine Ratio 19 % 04/22/22 09:45 Glucose 68 mg/dL (75-100) L 04/22/22 09:45 POC Glucose 98 mg/dL (70-105) 04/05/22 03:54 Hemoglobin A1c 5.2 % (4-6) 04/05/22 03:25 Calcium 9.9 mg/dL (8.4-10.2) 04/22/22 09:45 Total Bilirubin 0.30 mg/dL (0.1-1.2) 04/05/22 03:25 AST 28 units/L (5-40) 04/05/22 03:25 ALT 25 units/L (7-56) 04/05/22 03:25 Alkaline Phosphatase 52 units/L (35-129) 04/05/22 03:25 Total Protein 6.7 g/dL (6.3-8.2) 04/05/22 03:25 Albumin 3.9 g/dL (3.9-5) 04/05/22 03:25 Albumin/Globulin Ratio 1.4 % 04/05/22 03:25 Triglycerides 62 mg/dL (2-149) 04/05/22 03:25 Cholesterol 98 mg/dL (50-199) 04/05/22 03:25 LDL Cholesterol Direct 49 mg/dL (50-130) L 04/05/22 03:25 HDL Cholesterol 39 mg/dL (40-59) L 04/05/22 03:25 Cholesterol/HDL Ratio 2.51 % 04/05/22 03:25 TSH 2.600 mlU/mL (0.270-4.200) 04/05/22 03:25 Core Measure Documentation - Palliative Care Palliative Care/ Comfort Measures: Not Applicable - Core Measures Any of the following diagnoses?: stroke, none - Stroke Discharge Requirements Statin for LDL = or >70 mg/dl on DC: Not Applicable Reason for no statin on DC: Not Indicated Anticoag for atrial fib/atrial flutter: Not Applicable Reason for no anticoag for AF/F on DC: Not Indicated Antithrombotic for ischemic stroke: No Reason for no antithrombotic on DC: Not Indicated Exam - Constitutional Vitals: Temp Pulse Resp BP Pulse Ox 98.3 F 61 16 166/72 100 04/24/22 08:42 04/24/22 09:22 04/24/22 08:42 04/24/22 09:22 04/24/22 08:42 General appearance: Present: no acute distress - EENT Eyes: Present: PERRL, EOM intact ENT: clear oral mucosa - Neck Neck: Present: supple, normal ROM - Respiratory Respiratory effort: normal Plan Activity: advance as tolerated Weight Bearing Status: Weight Bear as Tolerated Care Plan Goals: Maintain good and stable mental health Plan of Treatment: The patient should be compliant with medications, not to use drugs, and not to drink alcohol. The patient understands that if suicidal ideas, homicidal ideas or any endangering feeling arise, the patient should seek assistance including, but not limited to crisis hotline, and emergency room. Assessment: Delusional Disorder Follow up with: PRIMARY CARE, [Primary Care Provider] - 7 Days Prescriptions: Divalproex Dr [Depakote Dr] 125 mg PO BID #60 tablet risperiDONE [RisperDAL] 0.5 mg PO TID #90 tablet
--- NOTE | 2022-04-24 09:59 | XRay Report ---
CHEST 1 VIEW 04/24/2022 8:53 AM INDICATION / CLINICAL INFORMATION: r/o TB. COMPARISON: None available. FINDINGS: SUPPORT DEVICES: None. HEART / MEDIASTINUM: No significant abnormality. LUNGS / PLEURA: No significant pulmonary or pleural abnormality. No pneumothorax. ADDITIONAL FINDINGS: No significant additional findings. IMPRESSION: 1. No acute findings. Signer Name: Kt Kessler MD Signed: 04/24/2022 9:55 AM Workstation Name: [id number]
== END 2022-04-24 12:23 | disposition home or self-care (01) | DRG 885 ==
LOC: 3A 15:35 → UNDOADMIN 15:35 → 5A 04-05 02:50
PROVIDERS: ADMIT Psychiatry & Neurology Psychiatry; ATTEND Psychiatry & Neurology Psychiatry
DX: F22 Delusional disorders (principal); F01.51 Vascular dementia, unspecified severity, with behavioral disturbance; I50.9 Heart failure, unspecified; I11.0 Hypertensive heart disease with heart failure; E78.5 Hyperlipidemia, unspecified; I25.10 Atherosclerotic heart disease of native coronary artery without angina pectoris; Z88.2 Allergy status to sulfonamides; Z88.1 Allergy status to other antibiotic agents; E03.9 Hypothyroidism, unspecified; I67.2 Cerebral atherosclerosis
CPT/HCPCS: 36415; 71045; 80048; 80053; 80061; 82962; 83036; 84443; 85025; G0378